=== PATIENT | female | born 1950 | race Caucasian/White ===

== ENCOUNTER → 2017-05-24 13:52 | Outpatient (CLI) | payer MEDICARE, MEDICAID, SELFPAY ==
--- NOTE | 2017-05-24 14:00 | XR_ITS ---
XR foot LT min 3V HISTORY: Left foot pain, second toe ulcer ITS.REASON: LT FOOT PAIN, ULCER ON LT 2ND TOE ORDERING PHYSICIAN: Sulma Esquivel DPM PATIENT AGE: 66 years COMPARISON: 12/29/2010 FINDINGS: There has been amputation at the first metatarsophalangeal joint with some minimal bony debris at the distal first metatarsal similar to the previous exam. Flexion deformity involves the second toe. On the lateral view there is lucency noted at the DIP joint of the second toe. This could be projectional. Erosive change is an additional consideration. The tip of the distal phalanx of the second toe has an unremarkable appearance. No other significant anomalies evident. IMPRESSION: 1. Possible erosive change at the dorsal aspect of the FDG joint of the second toe. Toe films or MRI may be of further value. 2. Prior amputation first metatarsophalangeal joint
== END ==
PROVIDERS: PCP Family Medicine; Visit Provider Podiatrist
DX: M79.671 Pain in right foot (principal); M79.672 Pain in left foot
CPT/HCPCS: 73630

== ENCOUNTER 2017-06-01 23:05 | Emergency (ER) | payer MEDICARE, MEDICAID, SELFPAY ==
[2017-06-01 23:15] VITALS: BP 139/55; PULSE 85; RESP 16; TEMP 37.2; O2SAT 98; BMI 24.3
[2017-06-01 23:47] LABS: Basophils # 0.1 K/mm3 (0-0.2); Basophils % 0.7 % (0.1-2.0); Eosinophils # 0.3 K/mm3 (0.0-0.4); Hemoglobin 14.3 g/dL (12.2-16.2); Lymphocytes # 1.6 K/mm3 (0.7-4.5); Lymphocytes % 25.1 K/mm3 (10-50); Mean Corpuscular Hemoglobin 29.5 pg (27.0-31.2); Mean Platelet Volume 9.3 fl (7.4-10.4); Monocytes # 0.2 K/mm3 (0.1-1.0); Monocytes % 3.6 % (1.7-9.3); Neutrophils # 4.2 K/mm3 (1.8-7.8); Neutrophils % 66.5 % (37.0-80.0); Platelet Count 250 K/mm3 (142-424); Red Blood Count 4.84 M/mm3 (4.20-5.40); Red Cell Distribution Width 13.8 % (11.5-17.5); White Blood Count 6.4 K/mm3 (4.8-10.8)
[2017-06-02 00:01] LABS: Alanine Aminotransferase 22 U/L (12-78); Albumin Level 3.3 gm/dL (3.4-5.0); Alkaline Phosphatase 142 U/L (46-116); Anion Gap 11.8 mEq/L (5-15); Aspartate Amino Transferase 10 U/L (15-37); Bilirubin,Total 0.4 mg/dL (0.2-1.0); Blood Urea Nitrogen 10 mg/dL (7-18); Calcium 8.3 mg/dL (8.5-10.1); Carbon Dioxide 27 mmol/L (21.0-32.0); Chloride 100 mmol/L (98-107); Creatinine Clearance Estimated 51 mL/min (0-300); Creatinine,Serum 0.91 mg/dL (0.55-1.02); Estimated Glomerular Filt Rate 61 ml/min (>60); GFR (African American) 74 ML/MIN (>60); Globulin 3.2 gm/dl (1.3-3.2); Potassium 3.8 mmoL/L (3.5-5.1); Sodium 135 mmol/L (136-145); Total Protein,Serum 6.5 gm/dL (6.4-8.2)
[2017-06-02 00:04] LABS: Glucose 529 mg/dL (74-106)
--- NOTE | 2017-06-02 01:14 | HMH.EDWNDL ---
ED Disposition Clinical Impression: Cellulitis Qualifiers: Site of cellulitis: extremity Site of cellulitis of extremity: lower extremity Laterality: left Qualified Code(s): L03.116 - Cellulitis of left lower limb Diabetes Qualifiers: Diabetes mellitus type: type 1 Diabetes mellitus complication status: with unspecified complications Qualified Code(s): E10.8 - Type 1 diabetes mellitus with unspecified complications Disposition: Home, Self-Care Condition on Discharge: Good Instructions: Cellulitis Additional Instructions: use meds and see pcp sunday Referrals: Mario Campos MD [Primary Care Provider] - - Critical Care Critical Care Time: No Attestation: On 06/01/17, the high probability of a clinically significant, sudden or life threatening deterioration of the following system(s) required my full and direct attention, intervention and personal management. The time I documented below is in addition to time spent performing reported procedures but includes the following listed in this critical care notation. Medical Decision Making - Medical Records Medical records reviewed: Yes: I reviewed the patient's medical records. Vital Signs: 06/01/17 23:15 Temperature 98.9 F Temperature Source Oral Pulse Rate [Right Radial] 85 Respiratory Rate 16 Blood Pressure [Right Arm] 139/55 Blood Pressure Mean [Right Arm] 83 Blood Pressure Source [Right Arm] Automatic Cuff Blood Pressure Position [Right Arm] Sitting 02 Sat by Pulse Oximetry 98 Oxygen Delivery Method Room Air - Lab Data Lab results reviewed: Yes: I reviewed the patient's lab results. Lab Results 06/01/17 23:38: WBC 6.4, RBC 4.84, Hgb 14.3, Hct 46.0, MCV 95.0, MCH 29.5, MCHC 31.0 L, RDW 13.8, Plt Count 250, MPV 9.3, Neut % (Auto) 66.5, Lymph % (Auto) 25.1, [place] % (Auto) 3.6, Eos % (Auto) 4.0, Baso % (Auto) 0.7, Neut # (Auto) 4.2, Lymph # (Auto) 1.6, [place] # (Auto) 0.2, Eos # (Auto) 0.3, Baso # (Auto) 0.1 06/01/17 23:38: Sodium 135 L, Potassium 3.8, Chloride 100, Carbon Dioxide 27, Anion Gap 11.8, BUN 10, Creatinine 0.91, Estimated Creat Clear 51, Estimated GFR 61, Est GFR ( Amer) 74, Glucose 529 H*, Calcium 8.3 L, Total Bilirubin 0.4, AST 10 L, ALT 22, Alkaline Phosphatase 142 H, Total Protein 6.5, Albumin 3.3 L, Globulin 3.2, Albumin/Globulin Ratio 1.0 L Result diagrams: 06/01/17 23:38 06/01/17 23:38 - Physician Consults Physician Consulted: [email or web address] Reason -: Pt condition - Mian Inquiry Pt receiving controlled substance: No Wound/Laceration HPI - General Chief Complaint: Skin/Abscess/Foreign Body Stated Complaint: sore on index toe left foot Time Seen by Provider: 06/02/17 01:14 Mode of Arrival: Wheelchair Source of Information: Patient, Spouse, Medical Record Limitations: Physical Limitations Description of Symptoms (Recalled from ER Triage Doc. by RN): Pt. reoprts last she saw Dr. Phillips who did an x-ray and cut tissue of the wound. Pt reports she has been taking antibiotics, but unalbe to keep her follow up apts. - History of Present Illness HPI narrative: pt with concern about infected lt second toe which has been ongoing and on abx and has seen dr young Onset (ago): day(s) Extremity Location: Left: foot (second toe) Place: home - Related Data Home Medications Medication Instructions Recorded Confirmed albuterol sulfate HFA 90 1 puff INHALATION NEEDED PRN 16 05/24/17 06/01/17 mcg/actuation aerosol inhaler #18 atorvastatin 80 mg tablet 80 mg PO DAILY 30 Days #05/24/17 06/01/17 clopidogrel 75 mg tablet 75 mg PO DAILY 30 Days #30 05/24/17 06/01/17 gabapentin 600 mg tablet 600 mg PO TID 05/24/17 06/01/17 omeprazole 20 mg capsule,delayed 20 mg PO DAILY 30 Days #30 05/24/17 06/01/17 release ropinirole 1 mg tablet 1 mg PO DAILY 30 Days #30 05/24/17 06/01/17 valsartan 160 mg tablet 160 mg PO DAILY 30 Days #30 05/24/17 06/01/17 cephALEXin [Keflex 500mg Cap] 500 mg PO Q12H 06/01/17 06/01/17
--- NOTE | 2017-06-02 01:42 | PC.NURSE ---
lab called blood sugar 529.
[2017-06-02 02:07] VITALS: BP 00/00; PULSE 80; RESP 18; TEMP 36.6; O2SAT 94
== END 2017-06-02 02:07 | disposition home or self-care (01) ==
PROVIDERS: Emergency Provider Emergency Medicine; Family Provider Family Medicine; PCP Family Medicine
DX: L03.032 Cellulitis of left toe (principal); E10.8 Type 1 diabetes mellitus with unspecified complications
CPT/HCPCS: 80053; 85025; 99282

== ENCOUNTER → 2017-06-06 12:58 | Outpatient (CLI) | payer MEDICARE, MEDICAID, SELFPAY ==
--- NOTE | 2017-06-06 13:21 | US_ITS ---
US Arterial Ankle Brachial Ind INDICATION: Left-sided leg pain rest pain and ulceration of the second toe. Prior right-sided [id number] amputation ORDERING PHYSICIAN: Sulma Esquivel DPM PATIENT AGE: 66 years TECHNIQUE: Segmental pressures obtained of both right and left leg. These are compared to brachial blood pressure to yield index at each level sampled including summary PAOLA. The data sheets from the procedure are available in PACS FINDINGS Rest study only performed today No prior studies available for comparison. Blood pressures reported are in millimeters mercury. RIGHT LEG PAOLA = not calculated, prior [id number] amputation. LEFT LEG PAOLA = not calculated. The vessels were noncompressible and blood pressure not able to be obtained. Degenerated and toe pressures were not able to be obtained. Pulses and waveforms: Diminished pulses and waveforms IMPRESSION: The ABIs were not able to be calculated on either side. There is prior amputation on the right and the vessels were noncompressible on the left indicating hardening of the arteries.
[2017-06-06 13:23] LABS: Basophils % 0.5 % (0.1-2.0); Eosinophils # 0.3 K/mm3 (0.0-0.4); Eosinophils % 4.6 % (0.1-12.0); Hematocrit 44.9 % (37.0-47.0); Hemoglobin 14.5 g/dL (12.2-16.2); Lymphocytes # 2.2 K/mm3 (0.7-4.5); Lymphocytes % 30.6 K/mm3 (10-50); Mean Corpuscular HGB Conc 32.3 g/dL (31.8-35.4); Mean Corpuscular Hemoglobin 29.9 pg (27.0-31.2); Mean Corpuscular Volume 92.7 fl (81-99); Mean Platelet Volume 8.8 fl (7.4-10.4); Monocytes # 0.3 K/mm3 (0.1-1.0); Monocytes % 3.6 % (1.7-9.3); Neutrophils # 4.4 K/mm3 (1.8-7.8); Neutrophils % 60.7 % (37.0-80.0); Platelet Count 260 K/mm3 (142-424); Red Blood Count 4.84 M/mm3 (4.20-5.40); Red Cell Distribution Width 14.1 % (11.5-17.5); White Blood Count 7.2 K/mm3 (4.8-10.8)
[2017-06-06 13:37] LABS: Hemoglobin A1C 11.2 % (0.0-7.0)
[2017-06-06 14:47] LABS: Alanine Aminotransferase 25 U/L (12-78); Albumin Level 3.4 gm/dL (3.4-5.0); Albumin/Globulin Ratio 1.2 (1.1-1.8); Alkaline Phosphatase 117 U/L (46-116); Anion Gap 12.3 mEq/L (5-15); Aspartate Amino Transferase 10 U/L (15-37); Bilirubin,Total 0.5 mg/dL (0.2-1.0); Blood Urea Nitrogen 13 mg/dL (7-18); Calcium 8.8 mg/dL (8.5-10.1); Carbon Dioxide 30 mmol/L (21.0-32.0); Chloride 102 mmol/L (98-107); Creatinine,Serum 0.76 mg/dL (0.55-1.02); Estimated Glomerular Filt Rate 76 ml/min (>60); GFR (African American) 92 ML/MIN (>60); Globulin 2.9 gm/dl (1.3-3.2); Glucose 191 mg/dL (74-106); Potassium 3.3 mmoL/L (3.5-5.1); Sodium 141 mmol/L (136-145); Total Protein,Serum 6.3 gm/dL (6.4-8.2)
[2017-06-06 14:48] LABS: C-Reactive Protein < 0.2 mg/L (0.0-0.9)
== END ==
PROVIDERS: Family Provider Family Medicine; PCP Family Medicine; Visit Provider Podiatrist
DX: L97.522 Non-pressure chronic ulcer of other part of left foot with fat layer exposed (principal); Z79.899 Other long term (current) drug therapy
CPT/HCPCS: 36415; 80053; 83036; 85025; 85651; 86140; 93922

== ENCOUNTER → 2017-06-07 14:13 | Outpatient (REF) | payer MEDICARE, MEDICAID, SELFPAY | LOC: LAB 14:13 | PROVIDERS: Visit Provider Podiatrist | DX: Z51.89 Encounter for other specified aftercare (principal) | CPT/HCPCS: 87070; 87077; 87186; 87205 ==

== ENCOUNTER → 2017-06-08 12:12 | Outpatient (POV) | payer MEDICARE, MEDICAID, SELFPAY ==
[2017-06-08 13:33] LABS: Erythrocyte Sedimentation Rate 10 mm/hr (0-30)
== END ==
PROVIDERS: Family Provider Family Medicine; PCP Family Medicine; Visit Provider Podiatrist
DX: Z51.89 Encounter for other specified aftercare (principal)
CPT/HCPCS: 85651

== ENCOUNTER 2017-06-13 17:51 | Observation (INO) | payer MEDICARE, MEDICAID, SELFPAY ==
[2017-06-13 17:52] VITALS: BP 145/69; PULSE 91; RESP 20; TEMP 39.3; O2SAT 96; BMI 24.3
[2017-06-13 18:31] LABS: Basophils # 0.1 K/mm3 (0-0.2); Basophils % 0.5 % (0.1-2.0); Eosinophils % 0.2 % (0.1-12.0); Hematocrit 38.7 % (37.0-47.0); Hemoglobin 12.8 g/dL (12.2-16.2); Lymphocytes # 0.8 K/mm3 (0.7-4.5); Lymphocytes % 8.3 K/mm3 (10-50); Mean Corpuscular HGB Conc 33.1 g/dL (31.8-35.4); Mean Corpuscular Hemoglobin 29.7 pg (27.0-31.2); Mean Corpuscular Volume 89.6 fl (81-99); Mean Platelet Volume 9.9 fl (7.4-10.4); Monocytes # 0.6 K/mm3 (0.1-1.0); Monocytes % 5.6 % (1.7-9.3); Neutrophils # 8.4 K/mm3 (1.8-7.8); Neutrophils % 85.4 % (37.0-80.0); Platelet Count 157 K/mm3 (142-424); Red Blood Count 4.32 M/mm3 (4.20-5.40); White Blood Count 9.8 K/mm3 (4.8-10.8)
[2017-06-13 18:42] LABS: Alanine Aminotransferase 25 U/L (12-78); Albumin Level 3.2 gm/dL (3.4-5.0); Albumin/Globulin Ratio 0.9 (1.1-1.8); Alkaline Phosphatase 95 U/L (46-116); Anion Gap 13.6 mEq/L (5-15); Aspartate Amino Transferase 23 U/L (15-37); Bilirubin,Total 0.8 mg/dL (0.2-1.0); Blood Urea Nitrogen 22 mg/dL (7-18); Calcium 7.8 mg/dL (8.5-10.1); Carbon Dioxide 28 mmol/L (21.0-32.0); Chloride 94 mmol/L (98-107); Creatinine Clearance Estimated 51 mL/min (0-300); Creatinine,Serum 0.99 mg/dL (0.55-1.02); Estimated Glomerular Filt Rate 56 ml/min (>60); GFR (African American) 67 ML/MIN (>60); Globulin 3.4 gm/dl (1.3-3.2); Glucose 302 mg/dL (74-106); Potassium 4.6 mmoL/L (3.5-5.1); Sodium 131 mmol/L (136-145); Total Protein,Serum 6.6 gm/dL (6.4-8.2)
[2017-06-13 18:52] LABS: MANUAL DIFFERENTIAL MANUAL DIFFERENTIAL (MANUAL DIFF)
--- NOTE | 2017-06-13 18:54 | HMH.EDGENADL ---
ED Disposition Clinical Impression: Dehydration Acute bronchitis Qualifiers: Bronchitis organism: unspecified organism Qualified Code(s): J20.9 - Acute bronchitis, unspecified Disposition: Still a Patient Condition on Discharge: Fair Referrals: Mario Campos MD [Primary Care Provider] - - Critical Care Critical Care Time: No Attestation: On 06/13/17, the high probability of a clinically significant, sudden or life threatening deterioration of the following system(s) required my full and direct attention, intervention and personal management. The time I documented below is in addition to time spent performing reported procedures but includes the following listed in this critical care notation. Medical Decision Making - Mian Inquiry Pt receiving controlled substance: No Vital Signs: 06/13/17 17:52 Temperature 102.8 F H Temperature Source Oral Pulse Rate [Left Radial] 91 H Respiratory Rate 20 Blood Pressure [Right Arm] 145/69 Blood Pressure Mean [Right Arm] 94 Blood Pressure Position [Right Arm] Right Lateral 02 Sat by Pulse Oximetry 96 - Lab Data Lab Results 06/13/17 18:11: Influenza Type A Ag Negative, Influenza Type B Ag Negative 06/13/17 18:15: WBC 9.8, RBC 4.32, Hgb 12.8, Hct 38.7, MCV 89.6, MCH 29.7, MCHC 33.1, RDW 14.0, Plt Count 157, MPV 9.9, Neut % (Auto) 85.4 H, Lymph % (Auto) 8.3 L, [place] % (Auto) 5.6, Eos % (Auto) 0.2, Baso % (Auto) 0.5, Neut # (Auto) 8.4 H, Lymph # (Auto) 0.8, [place] # (Auto) 0.6, Eos # (Auto) 0.0, Baso # (Auto) 0.1, Total Counted 100, Neutrophils % (Manual) 86 H, Lymphocytes % (Manual) 9 L, Monocytes % (Manual) 5, Platelet Estimate Normal, RBC Morphology Normal 06/13/17 18:15: Sodium 131 L, Potassium 4.6, Chloride 94 L, Carbon Dioxide 28, Anion Gap 13.6, BUN 22 H, Creatinine 0.99, Estimated Creat Clear 51, Estimated GFR 56 L, Est GFR ( Amer) 67, Glucose 302 H, Calcium 7.8 L, Total Bilirubin 0.8, AST 23, ALT 25, Alkaline Phosphatase 95, Total Protein 6.6, Albumin 3.2 L, Globulin 3.4 H, Albumin/Globulin Ratio 0.9 L 06/13/17 18:15: Lactic Acid 1.5 06/13/17 19:15: Urine Color Yellow, Urine Appearance Clear, Urine pH 5.5, Ur Specific [place] >= 1.030, Urine Protein Trace, Urine Glucose (UA) 1+, Urine Ketones Trace, Urine Blood Negative, Urine Nitrate Negative, Urine Bilirubin Negative, Urine Urobilinogen 0.2, Ur Leukocyte Esterase Negative Result diagrams: 06/13/17 18:15 06/13/17 18:15 Orders (Tests/Meds): ED MEDICATIONS Generic Name Dose Route Start Last Admin Trade Name Freq PRN Reason Stop Dose Admin Albuterol Sulfate puffs 06/13/17 20:20 Proventil-Hfa 90mcg/Puff Inhaler IH 07/13/17 20:19 NEEDED PRN Shortness Of Breath Clopidogrel Bisulfate 75 mg 06/14/17 09:00 Plavix 75mg Tablet PO 07/14/17 08:59 DAILY SONALI Gabapentin 600 mg 06/13/17 21:00 Neurontin 600mg Tablet PO 07/13/17 20:59 TID SONALI Sodium Chloride 1,000 mls @ 150 mls/hr 06/13/17 20:00 06/13/17 20:10 Sod Chlor 0.9% 1000ml Bag IV 07/13/17 19:59 150 mls/hr .[id number] SONALI Administration Non-Formulary Medication 80 mg 06/14/17 09:00 Atorvastatin Calcium [Lipitor 80mg Tablet] PO 07/14/17 08:59 DAILY SONALI Non-Formulary Medication 20 mg 06/14/17 09:00 Omeprazole [Omeprazole 20mg Capsule] PO 07/14/17 08:59 DAILY SONALI Non-Formulary Medication 160 mg 06/14/17 09:00 Valsartan [Valsartan] PO 07/14/17 08:59 DAILY SONALI Ropinirole HCl 1 mg 06/14/17 09:00 Requip 1mg Tablet PO 07/14/17 08:59 DAILY SONALI Discontinued Medications Generic Name Dose Route Start Last Admin Trade Name Freq PRN Reason Stop Dose Admin Acetaminophen 650 mg 06/13/17 19:05 06/13/17 19:10 Acetaminophen 325mg Tab PO 06/13/17 19:06 650 mg ONCE ONE Administration ORDERS Category Date Time Status Chest XR 2 view (NOT portable) [XR chest 2V] Stat Exams 06/13/17 19:10 Taken Upper Respiratory Panel, PCR
--- NOTE | 2017-06-13 19:10 | XR_ITS ---
XR chest 2V HISTORY: ITS.REASON: fever, cough ORDERING PHYSICIAN: Pranay Adkins MD PATIENT AGE: 66 years COMPARISON: 03/01/2017 FINDINGS: The cardiomediastinal silhouette and pulmonary vascularity are within normal limits. The lungs are clear without infiltrates, suspicious nodules, or pleural effusions. Skin fold artifact noted on the left. Bone plate is present of the lower thoracic spine. No acute bony abnormalities. IMPRESSION: No acute finding
[2017-06-13 19:13] LABS: Lymphocytes % 9 % (10-50); Monocytes % 5 % (2-9); Neutrophils % 86 % (42-76); Platelet Estimate Normal; RBC Morphology Normal; Total Cells Counted 100
[2017-06-13 19:20] LABS: Lactic Acid 1.5 mmol/L (0.4-2.0)
[2017-06-13 19:24] LABS: Microscopic, Urine URINE MICROSCOPIC (MICROSCOPIC)
[2017-06-13 19:32] LABS: Appearance,Urine CLEAR (Clear); Bilirubin,Urine Negative (Negative); Blood, Urine Negative (Negative); Color,Urine YELLOW (Yellow); Glucose,Urine (UA) 1+ (Negative); Ketones,Urine TRACE (Negative); Leukocyte Esterase,Urine Negative (Negative); Nitrate,Urine Negative (Negative); PH,Urine 5.5 (5.0-8.5); Protein,Urine TRACE (Negative); Specific Gravity, Urine >= 1.030 (1.005-1.030); Urobilinogen,Urine 0.2 EU/dl (0.2)
[2017-06-13 20:14] LABS: Adenovirus,PCR Not Detected (NotDetected); Bordetella Pertussis Not Detected (NotDetected); Chlamydophila Pneumoniae, PCR Not Detected (NotDetected); Coronavirus 229E Not Detected (NotDetected); Coronavirus NL63 Not Detected (NotDetected); Coronavirus OC43 Not Detected (NotDetected); Coronovirus HKU1,PCR Not Detected (NotDetected); Human Metapneumovirus Not Detected (NotDetected); Influenza A, PCR Not Detected (NotDetected); Influenza AH1, PCR Not Detected (NotDetected); Influenza AH3,PCR Not Detected (NotDetected); Influenza B, PCR Not Detected (NotDetected); Mycoplasma Pneumoniae, PCR Not Detected (NotDected); Parainfluenza 1, PCR Not Detected (NotDetected); Parainfluenza 2, PCR Not Detected (NotDetected); Parainfluenza 3, PCR Not Detected (NotDetected); Parainfluenza 4, PCR Not Detected (NotDetected); Respiratory Syncytial Virus Not Detected (NotDetected); Rhinovirus/Enterovirus Not Detected (NotDetected)
[2017-06-13 20:41] LABS: Bacteria,Urine Trace /lpf; Squamous Epithelial Cell,Urine 20-50 #/hpf (0-5); WBC,Urine Occasional #/hpf (0-3); Yeast,Urine 1+ /lpf
[2017-06-13 20:55] VITALS: BP 139/89; PULSE 88; RESP 18; TEMP 38.1; O2SAT 96
[2017-06-13 21:35] LABS: Influenza AH1, 2009 Detected (NotDetected)
[2017-06-13 23:13] VITALS: BP 97/35; PULSE 83; RESP 24; TEMP 37.9; O2SAT 90; BMI 24.0
[2017-06-14 04:00] VITALS: BP 112/37; PULSE 81; RESP 22; TEMP 37.6; O2SAT 90
--- NOTE | 2017-06-14 07:20 | HMH.HP ---
*Admission Date: 06/13/17 *Chief complaint: Cough and weakness *History of present illness: 66-year-old female with likely underlying COPD presented to the emergency department with a 2 day history of cough and increasing weakness with inability to stand. Once the patient arrived in the emergency department she was also identified as having fevers. Patient underwent workup which was significant for an abnormal lung exam but labs were unremarkable except for viral PCR testing which was later performed and confirmed influenza A. Patient was admitted and placed on IV fluids. At the time of admission she was also placed on antibiotics due to suspicion of bacterial bronchitis, however this was before influenza testing had returned. This morning the patient reports feeling significantly better already and notes even improvement in her breathing and cough. [facility] History Medical History: Reports:: Congestive Heart Failure, Diabetes Mellitus Type 2, Hyperlipidemia, Hypertension, MRSA Denies:: Cancer Other Medical History: Reports: Blood Transfusion Reaction (PRE SURGICAL 6 YEARS AGO) Laterality Cases: Right: Other Other Surgeries: Yes: Cardiac Catheterization, Colonoscopy, , EGD, Hysterectomy-Total, Other (NECK SURGERY) Amputation: Yes Fractures: Yes (ELBOW, FOOT) - *Social History Educational Level: Attended High School Smoking Status: Current every day smoker Tobacco Type: cigarettes # Packs/Day (cigarettes): 1 Alcohol Intake: never Alcohol Intake Frequency:: other Substance Use Type: denies use Occupational Status: disabled Household Members: children - Psychiatric History Expresses thoughts of harming self/others: None Suicide Plan Description: No Plan *Family Hx:: Diabetes, Cancer Review of Systems - Review of Systems Review of systems:: pertinent systems reviewed and negative unless documented below - *Neurologic Reports weakness Meds Home Medications Medication Instructions Recorded Confirmed Type albuterol sulfate HFA 90 1 puff INHALATION NEEDED PRN 16 05/24/17 06/13/17 History mcg/actuation aerosol inhaler Days #18 atorvastatin 80 mg tablet 80 mg PO DAILY 30 Days #30 05/24/17 06/13/17 History clopidogrel 75 mg tablet 75 mg PO DAILY 30 Days #30 05/24/17 06/13/17 History gabapentin 600 mg tablet 600 mg PO TID 05/24/17 06/13/17 History omeprazole 20 mg capsule,delayed 20 mg PO DAILY 30 Days #30 05/24/17 06/13/17 History release ropinirole 1 mg tablet 1 mg PO DAILY 30 Days #30 05/24/17 06/13/17 History valsartan 160 mg tablet 160 mg PO DAILY 30 Days #30 05/24/17 06/13/17 History cephALEXin [Keflex 500mg Cap] 500 mg PO Q12H 06/01/17 06/13/17 History Allergies Allergy/AdvReac Type Severity Reaction Status Date / Time ibuprofen [IBUPROFEN] Allergy Severe I-HIVES Verified 06/01/17 23:23 aspirin [ASPIRIN] Allergy Unknown Verified 06/01/17 23:23 zolpidem [From AMBIEN] Allergy Unknown Verified 06/01/17 23:23 Exam Vital signs and Labs for Last 24 Hours: Temp Pulse Resp BP Pulse Ox 99.7 F H 81 22 112/37 90 L 06/14/17 04:00 06/14/17 04:00 06/14/17 04:00 06/14/17 04:00 06/14/17 04:00 I & O for Last 24 hours: Intake & Output 06/11/17 06/12/17 06/13/17 06/14/17 11:59 11:59 11:59 11:59 Intake Total 800 / 800 Output Total 800 / 800 Balance 0 / 0 Weight 131 lb 1.989 oz Narrative: Patient is awake and alert and is easily able to sit up in bed this morning. HEENT exam: Pupils are reactive to light. Oropharynx is moist. Neck is without lymphadenopathy. Lungs have some faint rhonchi heard posteriorly that resolve with repetitive deep breathing. Heart has a regular rate and rhythm. Abdomen is soft. H&P: Result - Labs Labs: Abnormal Lab Results 06/13/17 06/13/17 06/13/17 18:11 18:15 18:15 WBC 9.8 RBC 4.32 Hgb 12.8 Hct 38.7 MCV 89.6 MCH 29.7 MCHC 33.1 RDW 14.0 Plt Count 157 MPV 9.9 Neut % (Auto) 85.4 H
--- NOTE | 2017-06-14 07:23 | P.HP_ITS ---
*Admission Date: 06/13/17 *Chief complaint: Cough and weakness *History of present illness: 66-year-old female with likely underlying COPD presented to the emergency department with a 2 day history of cough and increasing weakness with inability to stand. Once the patient arrived in the emergency department she was also identified as having fevers. Patient underwent workup which was significant for an abnormal lung exam but labs were unremarkable except for viral PCR testing which was later performed and confirmed influenza A. Patient was admitted and placed on IV fluids. At the time of admission she was also placed on antibiotics due to suspicion of bacterial bronchitis, however this was before influenza testing had returned. This morning the patient reports feeling significantly better already and notes even improvement in her breathing and cough. [facility] History Medical History: Reports:: Congestive Heart Failure, Diabetes Mellitus Type 2, Hyperlipidemia, Hypertension, MRSA Denies:: Cancer Other Medical History: Reports: Blood Transfusion Reaction (PRE SURGICAL 6 YEARS AGO) Laterality Cases: Right: Other Other Surgeries: Yes: Cardiac Catheterization, Colonoscopy, , EGD, Hysterectomy-Total, Other (NECK SURGERY) Amputation: Yes Fractures: Yes (ELBOW, FOOT) - *Social History Educational Level: Attended High School Smoking Status: Current every day smoker Tobacco Type: cigarettes # Packs/Day (cigarettes): 1 Alcohol Intake: never Alcohol Intake Frequency:: other Substance Use Type: denies use Occupational Status: disabled Household Members: children - Psychiatric History Expresses thoughts of harming self/others: None Suicide Plan Description: No Plan *Family Hx:: Diabetes, Cancer Review of Systems - Review of Systems Review of systems:: pertinent systems reviewed and negative unless documented below - *Neurologic Reports weakness Meds Home Medications Medication Instructions Recorded Confirmed Type albuterol sulfate HFA 90 1 puff INHALATION NEEDED PRN 16 05/24/17 06/13/17 History mcg/actuation aerosol inhaler Days #18 atorvastatin 80 mg tablet 80 mg PO DAILY 30 Days #30 05/24/17 06/13/17 History clopidogrel 75 mg tablet 75 mg PO DAILY 30 Days #30 05/24/17 06/13/17 History gabapentin 600 mg tablet 600 mg PO TID 05/24/17 06/13/17 History omeprazole 20 mg capsule,delayed 20 mg PO DAILY 30 Days #30 05/24/17 06/13/17 History release ropinirole 1 mg tablet 1 mg PO DAILY 30 Days #30 05/24/17 06/13/17 History valsartan 160 mg tablet 160 mg PO DAILY 30 Days #30 05/24/17 06/13/17 History cephALEXin [Keflex 500mg Cap] 500 mg PO Q12H 06/01/17 06/13/17 History Allergies Allergy/AdvReac Type Severity Reaction Status Date / Time ibuprofen [IBUPROFEN] Allergy Severe I-HIVES Verified 06/01/17 23:23 aspirin [ASPIRIN] Allergy Unknown Verified 06/01/17 23:23 zolpidem [From AMBIEN] Allergy Unknown Verified 06/01/17 23:23 Exam Vital signs and Labs for Last 24 Hours: Temp Pulse Resp BP Pulse Ox 99.7 F H 81 22 112/37 90 L 06/14/17 04:00 06/14/17 04:00 06/14/17 04:00 06/14/17 04:00 06/14/17 04:00 I & O for Last 24 hours: Intake & Output 06/11/17 06/12/17 06/13/17 06/14/17 11:59 11:59 11:59 11:59 Intake Total 800 / 800 Output Total 800 / 800 Balance 0 / 0 Weight 131 lb 1.989 oz Narr
--- NOTE | 2017-06-14 07:23 | HMH.DCSUM ---
General - General Admission date: 06/13/17 Discharge date: 06/14/17 HPI HPI: 66-year-old female with likely underlying COPD presented to the emergency department with a 2 day history of cough and increasing weakness with inability to stand. Once the patient arrived in the emergency department she was also identified as having fevers. Patient underwent workup which was significant for an abnormal lung exam but labs were unremarkable except for viral PCR testing which was later performed and confirmed influenza A. Patient was admitted and placed on IV fluids. At the time of admission she was also placed on antibiotics due to suspicion of bacterial bronchitis, however this was before influenza testing had returned. This morning the patient reports feeling significantly better already and notes even improvement in her breathing and cough. Hospital Course Hospital Course: Patient was been admitted with a diagnosis of acute bronchitis with upper respiratory PCR testing performed after admission turned positive for influenza A. Patient's fevers resolved overnight and by the following morning patient felt back to baseline and was feeling well. She was observed throughout the morning and lunch. For recurrence of fevers or malaise. Lung exam was significant for coarse breath sounds but no rales, rhonchi, wheezing. When patient did not have any recurrence of fever she was discharged home and can follow up as an outpatient. He was prescribed Tamiflu at discharge Objective Vital signs: Temp Pulse Resp BP Pulse Ox 99.7 F H 81 22 112/37 90 L 06/14/17 04:00 06/14/17 04:00 06/14/17 04:00 06/14/17 04:00 06/14/17 04:00 DS: Diagnosis - Discharge Diagnosis (1) Influenza A Status: Acute Discharge Plan - Patient Discharge Instructions ACTIVITY: Continue current activity DIET: continue same diet Patient Instructions: Dehydration, Acute Bronchitis, Nicotine Addiction, DI for Dehydration -- Adult, DI for Acute Bronchitis, DI for H1N1 Influenza -- Adult, How to Quit Smoking - Follow up Plan Follow up with: Sulma Esquivel DPM [Physician] - (as previously scheduled) Disposition: Home, Self-[facility] Medications: Home Medications Medication Instructions Recorded Confirmed Type albuterol sulfate HFA 90 1 puff INHALATION NEEDED PRN 16 05/24/17 06/13/17 History mcg/actuation aerosol inhaler Days #18 atorvastatin 80 mg tablet 80 mg PO DAILY 30 Days #30 05/24/17 06/13/17 History clopidogrel 75 mg tablet 75 mg PO DAILY 30 Days #30 05/24/17 06/13/17 History gabapentin 600 mg tablet 600 mg PO TID 05/24/17 06/13/17 History omeprazole 20 mg capsule,delayed 20 mg PO DAILY 30 Days #30 05/24/17 06/13/17 History release ropinirole 1 mg tablet 1 mg PO HS 30 Days #30 05/24/17 06/14/17 History valsartan 160 mg tablet 160 mg PO DAILY 30 Days #30 05/24/17 06/13/17 History Prescriptions/Medication Reconciliation: New Oseltamivir Phosphate [Tamiflu 75mg Capsule] 75 mg PO BID #10 cap Continue omeprazole 20 mg capsule,delayed release 20 mg PO DAILY 30 Days #30 clopidogrel 75 mg tablet 75 mg PO DAILY 30 Days #30 atorvastatin 80 mg tablet 80 mg PO DAILY 30 Days #30 gabapentin 600 mg tablet 600 mg PO TID albuterol sulfate HFA 90 mcg/actuation aerosol inhaler 1 puff INHALATION NEEDED PRN 16 Days #18 PRN Reason: Shortness Of Breath valsartan 160 mg tablet 160 mg PO DAILY 30 Days #30 ropinirole 1 mg tablet 1 mg PO HS 30 Days #30
--- NOTE | 2017-06-14 07:27 | PC.NURSE ---
report given to myke gao rn
--- NOTE | 2017-06-14 07:28 | P.CONPHA_ITS ---
[facility] Pharm[facility] VTE Monitoring - Patient Demographics Admission date: 06/13/17 Report Date: 06/14/17 Time: 07:27 Allergies/Adverse Reactions: Patient Allergies ibuprofen [IBUPROFEN] Allergy (Severe, Verified 06/01/17 23:23) I-HIVES aspirin [ASPIRIN] Allergy (Unknown, Verified 06/01/17 23:23) zolpidem [From AMBIEN] Allergy (Unknown, Verified 06/01/17 23:23) Height: 1.57 m Weight: 59.477 kg Patient Problems: Current Active Problems Acute bronchitis (Acute) Dehydration (Acute) Influenza A (Acute) - VTE Risk Labs: VTE Related Lab Results Hgb 12.8 g/dL (12.2-16.2) 06/13/17 18:15 Hct 38.7 % (37.0-47.0) 06/13/17 18:15 Plt Count 157 K/mm3 (142-424) 06/13/17 18:15 BUN 22 mg/dL (7-18) H 06/13/17 18:15 Creatinine 0.99 mg/dL (0.55-1.02) 06/13/17 18:15 Estimated Creat Clear 51 mL/min (0-300) 06/13/17 18:15 VTE Score: 5 VTE Risk Level: Low Risk - Prophylaxis VTE Prophylaxis Ordered?: Yes Types of VTE Prophylaxis: TEDS Knee High Location of Applied Device: Bilateral Lower Extremeties - VTE Diagnosis Confirmed Treatment or plan recommended: Continue Current Treatment
[2017-06-14 07:33] VITALS: BP 109/40; PULSE 93; RESP 20; TEMP 36.9; O2SAT 93
== END 2017-06-14 14:09 | disposition home or self-care (01) ==
LOC: ER 18:31 → 2ND 20:33
PROVIDERS: Admitting Provider Internal Medicine Adolescent Medicine; Emergency Provider Emergency Medicine; Family Provider Family Medicine; PCP Family Medicine; Visit Provider Family Medicine
DX: E86.0 Dehydration (principal); J10.1 Influenza due to other identified influenza virus with other respiratory manifestations; E11.9 Type 2 diabetes mellitus without complications; Z72.0 Tobacco use; I10 Essential (primary) hypertension; I50.9 Heart failure, unspecified; J44.9 Chronic obstructive pulmonary disease, unspecified
CPT/HCPCS: 71046; 80053; 81001; 83605; 85007; 85025; 87040; 87275; 87276; 87486; 87581; 87633; 87798; 96365; 99211; 99284; G0378; J0456

== ENCOUNTER → 2017-07-05 07:41 | Outpatient (CLI) | payer MEDICARE, MEDICAID, SELFPAY ==
--- NOTE | 2017-07-05 07:50 | CA_ITS ---
PROCEDURE: 2-D M-mode and color Doppler study INDICATIONS FOR THE TEST: Chest pain COPDX Heart Murmur Tobacco Smoking Palpitations Fatigue Syncope Edema HypertensionXDiabetes MellitusX Rheumatic Fever SOBXDOE Obesity HyperlipidemiaX Family History HD Additional History H/O AF,CHF PATIENT INFORMATION HEIGHT: 60 WEIGHT:133 GENDER: Female B/P:102/78 2-D/M-MODE INTERPRETATION: 2-D MEASUREMENTS OBSERVED VALUES IN CMS Right Ventricular Dimension (RVDd) 2.6 Interventricular Septum (Thickness)(IVsd) .7 Left Ventricular Internal Dimensions(LVIDd) 4.4 Left Ventricular Posterior Wall (Thickness)(LVPWd) .7 Aortic Root 2.6 Aortic Cusp Separation 2.1 Left Atrial Dimensions (LAD) 2.8 2D 1. Left atrium is mildly enlarged, left ventricle is normal size, there is no concentric left ventricular hypertrophy, visually estimated ejection fraction 55% with no obvious regional wall motion abnormality. 2. The right atrium and right ventricle are relatively normal size and function. 3. The aortic valve is minimally thickened and fibrosed. 4. The mitral and tricuspid valve leaflets are minimally thickened. 5. The pulmonic valve is poorly visualized. 6. No significant pericardial effusion noted. DOPPLER INTERROGATION: Doppler interrogation of the aortic, mitral and tricuspid valvular presence of mild mitral and tricuspid regurgitation, tricuspid and enteric velocity insufficient for calculation of the right ventricular systolic pressure, grade 1 diastolic dysfunction seen without tissue Doppler evidence of raised left atrial pressure. CONCLUSION: 1. Mildly enlarged left atrium, normal left ventricular size, visually estimated ejection fraction 55% with no obvious regional wall motion abnormality, grade 1 diastolic dysfunction seen without tissue Doppler evidence of raised left atrial pressure. 2. Mild mitral and tricuspid regurgitation 3. No significant pericardial effusion noted.
[2017-07-05 08:08] LABS: Basophils % 0.8 % (0.1-2.0); Eosinophils # 0.2 K/mm3 (0.0-0.4); Eosinophils % 3.2 % (0.1-12.0); Hematocrit 41.5 % (37.0-47.0); Hemoglobin 13.1 g/dL (12.2-16.2); Lymphocytes # 2.1 K/mm3 (0.7-4.5); Lymphocytes % 43.9 K/mm3 (10-50); Mean Corpuscular HGB Conc 31.7 g/dL (31.8-35.4); Mean Corpuscular Hemoglobin 29.1 pg (27.0-31.2); Mean Corpuscular Volume 91.9 fl (81-99); Monocytes # 0.4 K/mm3 (0.1-1.0); Monocytes % 7.4 % (1.7-9.3); Neutrophils # 2.1 K/mm3 (1.8-7.8); Neutrophils % 44.7 % (37.0-80.0); Platelet Count 283 K/mm3 (142-424); Red Blood Count 4.51 M/mm3 (4.20-5.40); Red Cell Distribution Width 14.2 % (11.5-17.5); White Blood Count 4.7 K/mm3 (4.8-10.8)
[2017-07-05 08:17] LABS: Hemoglobin A1C 11.7 % (0.0-7.0)
--- NOTE | 2017-07-05 08:25 | CT_ITS ---
CT angio LE LT Ordering Physician: Stiven Ash MD Patient Age: 66 years: Female HISTORY: ITS.REASON: ulcer left foot TECHNIQUE: Thin section axial helical CT scanning performed through the arteries bilaterally following bolus administration of 100 cc Isovue 370 . From these thin sections 3-D volume reconstruction CTA reconstruction images with with subtraction and shading were utilized to visualize the runoff vessels from aorta through the leg COMPARISON :A lower leg duplex Doppler 06/06/2017 which was limited due atherosclerotic calcification. Yielding Noncompressibility FINDINGS Lung bases clear liver spleen pancreas adrenals and kidneys with no prominent findings.. Cholecystectomy. The aorta normal caliber with calcification and minimal not flow-limiting stenosis origin of right renal artery, more so than left and some The atherosclerotic calcifications throughout the aorta into the common iliac arteries. Calcified plaque and features yield mild to moderate stenosis at the left common iliac artery origin estimated up to 40%-stenosis here but possibly slightly higher I would note that the 3-D images provide better evaluation here and show that the calcified plaque is mainly along the inferior margin of the left common iliac artery. LEFT LEG perfusion: Left external iliac artery is widely patent and free of significant plaque. Only Minimal plaque at the left common femoral artery. Left SFA with scattered mild to moderate plaque. Numerous scattered calcified plaque and soft plaque is seen throughout the superficial femoral artery and popliteal artery. There numerous areas of of mild to moderate up to 30%-50% % stenosis.. For example at mid left SFA and Micky's canal probably there is forward a 50% stenosis. At the left popliteal there seems to be slightly greater 58 ACC percent stenosis At left peroneal tibial trunk minimal plaque yielding 30-40% narrowing likely present. However there is actually very good three-vessel runoff to the calf to the left ankle and left foot. . The peroneal artery becomes attenuated & very quite small just above the ankle The anterior tibial and posterior tibial patent to the ankle. Continuation of a generous caliber well perfused dorsalis pedis artery to the foot which leads down to the dorsal arcade. . We also see a good enhancement and perfusion of posterior tibial artery as it continues as a smaller vessel along the plantar aspect of the foot. RIGHT LEG. There is moderate plaque at the common femoral artery with at roughly 50% narrowing at stenosis here. Scattered moderate plaques are seen along the right SFA with the occluded appearing stent extending through the distal SFA to the popliteal.. Fair collaterals are seen arise from the deep femoral artery collaterals. 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 The bone appears in soft tissues intact. At the BKA ---------IMPRESSION: --------- 1. LEFT LEG There is actually surprisingly fairly good runoff with trifurcation vessels seen down to to the above ankle & with continuation of dorsalis pedis and posterior tibial artery to the foot Would note at left leg: ... Moderate stenosis origin left common iliac artery estimated ~up to 40% ... There are extensive mild/moderate moderate calcified and soft plaque throughout the left SFA some areas yielding up to 40%-possible up to 50% stenosis such as seen at Micky's canal & proximal SFA .... There is also a slightly higher grade stenosis 50-60% at the left popliteal artery .... Scattered calcified & soft plaque throughout the trifurcation vessel but overall good runoff to the ankle with the dominant dorsalis pedis leading to
[2017-07-05 09:02] LABS: Alanine Aminotransferase 11 U/L (12-78); Albumin Level 3.2 gm/dL (3.4-5.0); Albumin/Globulin Ratio 1.1 (1.1-1.8); Alkaline Phosphatase 115 U/L (46-116); Anion Gap 10.2 mEq/L (5-15); Aspartate Amino Transferase 13 U/L (15-37); Bilirubin,Total 0.6 mg/dL (0.2-1.0); Blood Urea Nitrogen 13 mg/dL (7-18); Carbon Dioxide 31 mmol/L (21.0-32.0); Chloride 100 mmol/L (98-107); Creatinine,Serum 0.75 mg/dL (0.55-1.02); Estimated Glomerular Filt Rate 77 ml/min (>60); GFR (African American) 93 ML/MIN (>60); Glucose 317 mg/dL (74-106); Potassium 4.2 mmoL/L (3.5-5.1); Sodium 137 mmol/L (136-145); Total Protein,Serum 6.2 gm/dL (6.4-8.2)
[2017-07-05 09:09] LABS: C-Reactive Protein < 0.2 mg/L (0.0-0.9)
== END ==
PROVIDERS: Podiatrist; Family Provider Family Medicine; PCP Family Medicine; Visit Provider Internal Medicine Cardiovascular Disease
DX: I48.0 Paroxysmal atrial fibrillation; I73.9 Peripheral vascular disease, unspecified; E11.9 Type 2 diabetes mellitus without complications; L97.529 Non-pressure chronic ulcer of other part of left foot with unspecified severity; M20.40 Other hammer toe(s) (acquired), unspecified foot; Z89.511 Acquired absence of right leg below knee; Z51.89 Encounter for other specified aftercare
CPT/HCPCS: 36415; 73706; 80053; 83036; 85025; 86140; 93306; Q9967

== ENCOUNTER 2017-07-28 00:02 | Inpatient (IN) ==
--- NOTE | 2017-07-28 00:26 | Emergency Department Note ---
ED Disposition Clinical Impression: Osteomyelitis of ankle and foot Diabetes Qualifiers: Diabetes mellitus type: type 1 Diabetes mellitus complication status: with unspecified complications Qualified Code(s): E10.8 - Type 1 diabetes mellitus with unspecified complications Disposition: Admitted as Observation Condition on Discharge: Good Referrals: Mario Campos MD [Primary Care Provider] - - Critical Care Critical Care Time: No Attestation: On 07/28/17, the high probability of a clinically significant, sudden or life threatening deterioration of the following system(s) required my full and direct attention, intervention and personal management. The time I documented below is in addition to time spent performing reported procedures but includes the following listed in this critical care notation. Medical Decision Making - Medical Records Medical records reviewed: Yes: I reviewed the patient's medical records. - Mian Inquiry Pt receiving controlled substance: No Vital Signs: 07/28/17 00:12 Temperature 98.9 F Temperature Source Oral Pulse Rate [Right Radial] 85 Respiratory Rate 20 Blood Pressure [Right Arm] 132/61 Blood Pressure Mean [Right Arm] 84 02 Sat by Pulse Oximetry 98 - Lab Data Lab results reviewed: Yes: I reviewed the patient's lab results. Lab Results 07/28/17 00:45: WBC 6.7, RBC 4.53, Hgb 13.3, Hct 41.7, MCV 91.9, MCH 29.4, MCHC 32.0, RDW 14.1, Plt Count 224, MPV 9.1, Neut % (Auto) 67.9, Lymph % (Auto) 20.9 , [place] % (Auto) 6.3, Eos % (Auto) 4.1, Baso % (Auto) 0.7, Neut # (Auto) 4.5, Lymph # (Auto) 1.4, [place] # (Auto) 0.4, Eos # (Auto) 0.3, Baso # (Auto) 0.1 07/28/17 00:45: Sodium 135 L, Potassium 3.9, Chloride 101, Carbon Dioxide 27, Anion Gap 10.9, BUN 8, Creatinine 0.92, Estimated Creat Clear 43, Estimated GFR 61, Est GFR ( Amer) 73, Glucose 471 H*, Calcium 8.9, Total Bilirubin 0.6 , AST 11 L, ALT 14, Alkaline Phosphatase 109, C-Reactive Protein 0.7, Total Protein 6.8, Albumin 3.2 L, Globulin 3.6 H, Albumin/Globulin Ratio 0.9 L 07/28/17 00:45: Lactic Acid 1.6 07/28/17 00:45: ESR 19 Result diagrams: 07/28/17 00:45 07/28/17 00:45 Orders (Tests/Meds): ORDERS Category Date Time Status CT foot LT wo con Stat Cat Scan 07/28/17 00:28 Taken Blood Culture Stat Micro 07/28/17 00:45 Received Wound Culture and Gram Stain Stat Micro 07/28/17 01:25 Received - CT Data CT Scan: Other (foot) Time Received: 02:[address] Reviewed: Yes: I have viewed the radiologist's interpretation Preliminary Findings: Abnormal (see report) - Physician Consults Physician Consulted: winston Reason -: Admission Skin/Abscess/FB HPI - General Chief complaint: Wound/Laceration Stated complaint: toe on left foot green and warm to touch Time Seen by Provider: 07/28/17 00:23 Mode of Arrival: Wheelchair Limitations: Physical Limitations Description of Symptoms (Recalled from ER Triage Doc. by RN): left 2nd toe wound with green drainage. foot redness and swelling and pain. pt called her doctor and was told to come in sunday to see her but she couldnt wait. - History of Present Illness HPI narrative: progressive reddness and swelling lt foot progressive over the last few days MD complaint: abscess/boil Onset (ago): day(s) Tetanus up to date: unsure Location: L foot Severity: moderate Quality: dull - Related Data Home Medications Medication Instructions Recorded Confirmed albuterol sulfate HFA 90 1 puff INHALATION NEEDED PRN 16 05/24/17 07/28/17 mcg/actuation aerosol inhaler Days #18 atorvastatin 80 mg tablet 80 mg PO DAILY 30 Days #30 05/24/17 07/28/17 clopidogrel 75 mg tablet 75 mg PO DAILY 30 Days #30 05/24/17 07/28/17 gabapentin 600 mg tablet 600 mg PO TID 05/24/17 07/28/17 omeprazole 20 mg capsule,delayed 20 mg PO DAILY 30 Days #30 05/24/17 07/28/17 release ropinirole 1 mg tablet 1 mg PO HS 30 Days #30 05/24/17 07/28/17 valsartan 160 mg tablet 160 mg PO DAILY 30 Days #30 05/24/17 07/28/17 apixaban 5 mg tablet 5 mg PO BID 07/19/17 07/28/17 dilTIAZem HCl [Cardizem Cd] 120 mg PO ONCE 07/28/17 07/28/17 levoFLOXacin [Levaquin 500mg 500 mg PO Q24H 07/28/17 07/28/17 tab] Allergies Allergy/AdvReac Type Severity Reaction Status Date / Time ibuprofen [IBUPROFEN] Allergy Severe I-HIVES Verified 07/19/17 13:00 aspirin [ASPIRIN] Allergy Unknown Verified 07/19/17 13:00 zolpidem [From AMBIEN] Allergy Unknown Verified 07/19/17 13:00 [facility] History I have reviewed the patient's past medical history: Yes Medical History: Reports:: Congestive Heart Failure, Diabetes Mellitus Type 2, Hyperlipidemia, Hypertension, MRSA, Peripheral Artery Disease, Peripheral Vascular Disease Denies:: Cancer Other Medical History: Reports: Blood Transfusion Reaction Laterality Cases: Left: Lumpectomy, Right: Other Other Surgeries: Yes: Appendectomy, Cardiac Catheterization, Colonoscopy, C- section, EGD, Hysterectomy-Total, Other Amputation: Yes Fractures: No Comment: Neck Surgery - Social History Smoking Status: Current every day smoker Tobacco Type: cigarettes # Packs/Day (cigarettes): 1 Alcohol Intake: never Alcohol Intake Frequency:: other Substance Use Type: denies use Occupational Status: disabled Household Members: children - Psychiatric History Expresses thoughts of harming self/others: None Suicide Plan Description: No Plan Family Hx:: Diabetes, Cancer, Coronary Artery Disease ROS Obtained: Yes All systems reviewed & no additional complaints - Constitutional Constitutional: Denies fever(s) - Eyes Eyes: Denies change in vision - ENT Ears, Nose, Mouth, and Throat: Denies sore throat - Cardiovascular Cardiovascular: Denies chest pain at rest - Respiratory Respiratory: No cough - Gastrointestinal Gastrointestingal: Denies: abdominal pain - Genitourinary Female Genitourinary: Denies hematuria - Musculoskeletal Musculoskeletal: Reports as per HPI, Reports joint pain, Reports joint swelling - Integumentary/Breasts Skin/Breast: Reports other (reddness and swelling lt foot and second toe ) - Neurologic Neurologic: Denies seizure-like activity Physical Exam - General General appearance: in no apparent distress - Head Head exam: normocephalic - Eye Eye exam: Present: PERRL, EOMI - ENT ENT exam: Present: mucous membranes moist - Neck Neck exam: Present: trachea midline - Respiratory Respiratory exam: Present: respiratory distress - Cardiovascular Cardiovascular exam: Present: regular rate, systolic murmur - Abdominal Exam Abdominal exam: Present: soft - Expanded Lower Extremity Exam Left Foot/toe exam: Present: tenderness, swelling, erythema (no odor and no purulent drainage ) - Neurological Exam Neurological exam: Present: alert, oriented X3, CN II-XII intact - Psychiatric Psychiatric exam: Present: normal affect - Skin Skin exam: Present: other (lt foot changes )
[2017-07-28 00:53] LABS: Basophils # 0.1 K/mm3 (0-0.2); Basophils % 0.7 % (0.1-2.0); Eosinophils # 0.3 K/mm3 (0.0-0.4); Eosinophils % 4.1 % (0.1-12.0); Hematocrit 41.7 % (37.0-47.0); Hemoglobin 13.3 g/dL (12.2-16.2); Lymphocytes # 1.4 K/mm3 (0.7-4.5); Lymphocytes % 20.9 K/mm3 (10-50); Mean Corpuscular Hemoglobin 29.4 pg (27.0-31.2); Mean Corpuscular Volume 91.9 fl (81-99); Mean Platelet Volume 9.1 fl (7.4-10.4); Monocytes # 0.4 K/mm3 (0.1-1.0); Monocytes % 6.3 % (1.7-9.3); Neutrophils # 4.5 K/mm3 (1.8-7.8); Neutrophils % 67.9 % (37.0-80.0); Platelet Count 224 K/mm3 (142-424); Red Blood Count 4.53 M/mm3 (4.20-5.40); Red Cell Distribution Width 14.1 % (11.5-17.5); White Blood Count 6.7 K/mm3 (4.8-10.8)
[2017-07-28 01:12] LABS: Albumin Level 3.2 gm/dL (3.4-5.0); Albumin/Globulin Ratio 0.9 (1.1-1.8); Anion Gap 10.9 mEq/L (5-15); Bilirubin,Total 0.6 mg/dL (0.2-1.0); C-Reactive Protein 0.7 mg/L (0.0-0.9); Calcium 8.9 mg/dL (8.5-10.1); Globulin 3.6 gm/dl (1.3-3.2); Potassium 3.9 mmoL/L (3.5-5.1); Total Protein,Serum 6.8 gm/dL (6.4-8.2)
[2017-07-28 06:54] LABS: Basophils % 0.7 % (0.1-2.0); Eosinophils # 0.3 K/mm3 (0.0-0.4); Eosinophils % 5.5 % (0.1-12.0); Lymphocytes # 1.3 K/mm3 (0.7-4.5); Lymphocytes % 24.5 K/mm3 (10-50); Mean Corpuscular HGB Conc 32.4 g/dL (31.8-35.4); Mean Corpuscular Hemoglobin 29.4 pg (27.0-31.2); Mean Corpuscular Volume 90.7 fl (81-99); Mean Platelet Volume 9.5 fl (7.4-10.4); Monocytes # 0.3 K/mm3 (0.1-1.0); Monocytes % 5.6 % (1.7-9.3); Neutrophils # 3.5 K/mm3 (1.8-7.8); Neutrophils % 63.7 % (37.0-80.0); Platelet Count 209 K/mm3 (142-424); Red Blood Count 4.08 M/mm3 (4.20-5.40); Red Cell Distribution Width 14.1 % (11.5-17.5); White Blood Count 5.5 K/mm3 (4.8-10.8)
[2017-07-28 06:57] LABS: INR 1.05 (0.9-1.1); Prothrombin Time 11.4 seconds (9.4-11.8)
[2017-07-28 07:01] LABS: Anion Gap 7.9 mEq/L (5-15); Phosphorous 3.5 mg/dL (2.4-4.9); Potassium 3.9 mmoL/L (3.5-5.1)
--- NOTE | 2017-07-28 08:24 | Pharmacy Consult Notes ---
- Pharmacy Consult Date: 07/28/17 Time: 08:22 Referring provider: DR. WHITLOCK Reason for Consult:: VANCOMYCIN DOSING Allergies and ADEs:: Allergies Allergy/AdvReac Type Severity Reaction Status Date / Time ibuprofen [IBUPROFEN] Allergy Severe I-HIVES Verified 07/28/17 03:24 aspirin [ASPIRIN] Allergy Unknown Verified 07/28/17 03:24 zolpidem [From AMBIEN] Allergy Unknown Verified 07/28/17 03:24 Home Medications:: Home Medications Medication Instructions Recorded Confirmed Type atorvastatin 80 mg tablet 80 mg PO DAILY 30 Days #30 05/24/17 07/28/17 History clopidogrel 75 mg tablet 75 mg PO DAILY 30 Days #30 05/24/17 07/28/17 History gabapentin 600 mg tablet 600 mg PO TID 05/24/17 07/28/17 History omeprazole 20 mg capsule,delayed 20 mg PO DAILY 30 Days #30 05/24/17 07/28/17 History release ropinirole 1 mg tablet 1 mg PO HS 30 Days #30 05/24/17 07/28/17 History valsartan 160 mg tablet 160 mg PO DAILY 30 Days #30 05/24/17 07/28/17 History apixaban 5 mg tablet 5 mg PO BID 07/19/17 07/28/17 History Albuterol Sulfate [Albuterol HFA 1 puff INHALATION BID 07/28/17 07/28/17 History Inhaler] dilTIAZem HCl [Cardizem Cd] 120 mg PO ONCE 07/28/17 07/28/17 History levoFLOXacin [Levaquin 500mg 500 mg PO Q24H 07/28/17 07/28/17 History tab] Height: 1.57 m Weight: 57.181 kg Laboratory Results:: Laboratory Results - last 24 hr 07/28/17 00:45: WBC 6.7, RBC 4.53, Hgb 13.3, Hct 41.7, MCV 91.9, MCH 29.4, MCHC 32.0, RDW 14.1, Plt Count 224, MPV 9.1, Neut % (Auto) 67.9, Lymph % (Auto) 20.9 , [place] % (Auto) 6.3, Eos % (Auto) 4.1, Baso % (Auto) 0.7, Neut # (Auto) 4.5, Lymph # (Auto) 1.4, [place] # (Auto) 0.4, Eos # (Auto) 0.3, Baso # (Auto) 0.1 07/28/17 00:45: Sodium 135 L, Potassium 3.9, Chloride 101, Carbon Dioxide 27, Anion Gap 10.9, BUN 8, Creatinine 0.92, Estimated Creat Clear 43, Estimated GFR 61, Est GFR ( Amer) 73, Glucose 471 H*, Calcium 8.9, Total Bilirubin 0.6 , AST 11 L, ALT 14, Alkaline Phosphatase 109, C-Reactive Protein 0.7, Total Protein 6.8, Albumin 3.2 L, Globulin 3.6 H, Albumin/Globulin Ratio 0.9 L 07/28/17 00:45: Lactic Acid 1.6 07/28/17 00:45: ESR 19 07/28/17 05:54: POC Glucose 342 H* 07/28/17 06:20: WBC 5.5, RBC 4.08 L, Hgb 12.0 L, Hct 37.0, MCV 90.7, MCH 29.4, MCHC 32.4, RDW 14.1, Plt Count 209, MPV 9.5, Neut % (Auto) 63.7, Lymph % (Auto) 24.5, [place] % (Auto) 5.6, Eos % (Auto) 5.5, Baso % (Auto) 0.7, Neut # (Auto) 3.5 , Lymph # (Auto) 1.3, [place] # (Auto) 0.3, Eos # (Auto) 0.3, Baso # (Auto) 0.0 07/28/17 06:20: PT 11.4, INR 1.05 07/28/17 06:20: Sodium 139, Potassium 3.9, Chloride 105, Carbon Dioxide 30, Anion Gap 7.9, BUN 7, Creatinine 0.76, Estimated Creat Clear 49, Estimated GFR 76, Est GFR ( Amer) 92 D, Glucose 360 H D, Phosphorus 3.5, Magnesium 1.5 Medical History: Reports:: Congestive Heart Failure, Diabetes Mellitus Type 2, Hyperlipidemia, Hypertension, MRSA, Peripheral Artery Disease, Peripheral Vascular Disease Denies:: Cancer Assessment and Plan - Assessment and plan all Dx Assessment and Plan for all problems:: BASED ON PATIENT FACTORS, RECOMMEND VANCOMYCIN DOSE OF 1,000MG IV Q24H. PHARMACY WILL OBTAIN TROUGH LEVEL PRIOR TO FOURTH DOSE AND ADJUST DOSE APPROPRIATE AT THAT POINT. -АНДРЕЙ HONEYCUTTD
--- NOTE | 2017-07-28 08:29 | History & Physical Report ---
*Admission Date: 07/28/17 *Chief complaint: Left foot pain and redness *History of present illness: 66-year-old white female with history of CHF, diabetes, significant peripheral arterial disease with amputations of right foot and toe amputations on the left , who has been on levofloxacin over the past couple of days as an outpatient because of redness and cellulitis of the left second toe. This has not improved , came to the emergency department last night, where CT scan revealed evidence of osteomyelitis and cellulitis was noted not to improve significantly by her report. She is admitted for IV antibiotics and podiatry consultation for possible debridement versus toe amputation. [facility] History Medical History: Reports:: Congestive Heart Failure, Diabetes Mellitus Type 2, Hyperlipidemia, Hypertension, MRSA, Peripheral Artery Disease, Peripheral Vascular Disease Denies:: Cancer Other Medical History: Reports: Blood Transfusion Reaction Laterality Cases: Left: Lumpectomy, Right: Other (BKA) Other Surgeries: Yes: Appendectomy, Cardiac Catheterization, Colonoscopy, C- section, EGD, Hysterectomy-Total, Other Amputation: Yes Fractures: No Comment: Right BKA, left great toe amputation - *Social History Educational Level: Attended High School Smoking Status: Current every day smoker Tobacco Type: cigarettes # Packs/Day (cigarettes): 1 Alcohol Intake: never Alcohol Intake Frequency:: other Substance Use Type: denies use Occupational Status: disabled Housing: house Household Members: children - Psychiatric History Expresses thoughts of harming self/others: None Suicide Plan Description: No Plan *Family Hx:: Diabetes, Cancer, Coronary Artery Disease Review of Systems - Review of Systems Review of systems:: unable to obtain, other, pertinent systems reviewed and negative unless documented below - *Neurologic Denies seizure-like activity Meds Home Medications Medication Instructions Recorded Confirmed Type atorvastatin 80 mg tablet 80 mg PO DAILY 30 Days #30 05/24/17 07/28/17 History clopidogrel 75 mg tablet 75 mg PO DAILY 30 Days #30 05/24/17 07/28/17 History gabapentin 600 mg tablet 600 mg PO TID 05/24/17 07/28/17 History omeprazole 20 mg capsule,delayed 20 mg PO DAILY 30 Days #30 05/24/17 07/28/17 History release ropinirole 1 mg tablet 1 mg PO HS 30 Days #30 05/24/17 07/28/17 History valsartan 160 mg tablet 160 mg PO DAILY 30 Days #30 05/24/17 07/28/17 History apixaban 5 mg tablet 5 mg PO BID 07/19/17 07/28/17 History Albuterol Sulfate [Albuterol HFA 1 puff INHALATION BID 07/28/17 07/28/17 History Inhaler] dilTIAZem HCl [Cardizem Cd] 120 mg PO ONCE 07/28/17 07/28/17 History levoFLOXacin [Levaquin 500mg 500 mg PO Q24H 07/28/17 07/28/17 History tab] Allergies Allergy/AdvReac Type Severity Reaction Status Date / Time ibuprofen [IBUPROFEN] Allergy Severe I-HIVES Verified 07/28/17 03:24 aspirin [ASPIRIN] Allergy Unknown Verified 07/28/17 03:24 zolpidem [From AMBIEN] Allergy Unknown Verified 07/28/17 03:24 Exam Vital signs and Labs for Last 24 Hours: Temp Pulse Resp BP Pulse Ox 99.0 F 88 18 110/49 95 07/28/17 07:49 07/28/17 07:49 07/28/17 07:49 07/28/17 07:49 07/28/17 07:49 Laboratory Results - last 24 hr 07/28/17 00:45: WBC 6.7, RBC 4.53, Hgb 13.3, Hct 41.7, MCV 91.9, MCH 29.4, MCHC 32.0, RDW 14.1, Plt Count 224, MPV 9.1, Neut % (Auto) 67.9, Lymph % (Auto) 20.9 , [place] % (Auto) 6.3, Eos % (Auto) 4.1, Baso % (Auto) 0.7, Neut # (Auto) 4.5, Lymph # (Auto) 1.4, [place] # (Auto) 0.4, Eos # (Auto) 0.3, Baso # (Auto) 0.1 07/28/17 00:45: Sodium 135 L, Potassium 3.9, Chloride 101, Carbon Dioxide 27, Anion Gap 10.9, BUN 8, Creatinine 0.92, Estimated Creat Clear 43, Estimated GFR 61, Est GFR ( Amer) 73, Glucose 471 H*, Calcium 8.9, Total Bilirubin 0.6 , AST 11 L, ALT 14, Alkaline Phosphatase 109, C-Reactive Protein 0.7, Total Protein 6.8, Albumin 3.2 L, Globulin 3.6 H, Albumin/Globulin Ratio 0.9 L 07/28/17 00:45: Lactic Acid 1.6 07/28/17 00:45: ESR 19 07/28/17 05:54: POC Glucose 342 H* 07/28/17 06:20: WBC 5.5, RBC 4.08 L, Hgb 12.0 L, Hct 37.0, MCV 90.7, MCH 29.4, MCHC 32.4, RDW 14.1, Plt Count 209, MPV 9.5, Neut % (Auto) 63.7, Lymph % (Auto) 24.5, [place] % (Auto) 5.6, Eos % (Auto) 5.5, Baso % (Auto) 0.7, Neut # (Auto) 3.5 , Lymph # (Auto) 1.3, [place] # (Auto) 0.3, Eos # (Auto) 0.3, Baso # (Auto) 0.0 07/28/17 06:20: PT 11.4, INR 1.05 07/28/17 06:20: Sodium 139, Potassium 3.9, Chloride 105, Carbon Dioxide 30, Anion Gap 7.9, BUN 7, Creatinine 0.76, Estimated Creat Clear 49, Estimated GFR 76, Est GFR ( Amer) 92 D, Glucose 360 H D, Phosphorus 3.5, Magnesium 1.5 I & O for Last 24 hours: Intake & Output 07/25/17 07/26/17 07/27/17 07/28/17 11:59 11:59 11:59 11:59 Intake Total 100 / 100 Output Total 600 / 600 Balance -500 / -500 Weight 126 lb 1 oz Narrative: Patient is alert. Pleasant. Talkative. Oropharynx clear. Lungs with rhonchi and expiratory wheezes -- this seems to be her baseline, fairly good air entry. No crackles. Rate regular. Soft flow murmur. Abdomen soft and nontender. Able to move all of her extremities. Right BKA noted with well-healed stump. Left foot with absent great toe, absent pulses. Left second toe is reddened, wrapped in gauze with some purulent green drainage from the tip of the toe. H&P: Result - Labs Labs: Short CBC 07/28/17 07/28/17 Range/Units 00:45 06:20 WBC 6.7 5.5 (4.8-10.8) K/mm3 Hgb 13.3 12.0 L (12.2-16.2) g/dL Hct 41.7 37.0 (37.0-47.0) % Plt Count 224 209 (142-424) K/mm3 BMP 07/28/17 07/28/17 00:45 06:20 Sodium 135 L 139 Potassium 3.9 3.9 Chloride 101 105 Carbon Dioxide 27 30 BUN 8 7 Creatinine 0.92 0.76 Glucose 471 H* 360 H D Calcium 8.9 Liver Function 07/28/17 Range/Units 00:45 Total Bilirubin 0.6 (0.2-1.0) mg/dL AST 11 L (15-37) U/L ALT 14 (12-78) U/L Alkaline Phosphatase 109 (46-116) U/L Albumin 3.2 L (3.4-5.0) gm/dL Assessment and Plan (1) Peripheral arterial disease Current visit: Yes Status: Acute Category: Medical Code(s): I73.9 - Peripheral vascular disease, unspecified (2) Osteomyelitis of ankle and foot Current visit: Yes Status: Acute Category: Medical Code(s): M86.9 - Osteomyelitis, unspecified (3) Diabetes Current visit: Yes Status: Chronic Qualifiers: Diabetes mellitus type: type 1 Diabetes mellitus complication status: with unspecified complications Qualified Code(s): E10.8 - Type 1 diabetes mellitus with unspecified complications Category: Medical Code(s): E11.9 - Type 2 diabetes mellitus without complications (4) Tobacco use disorder, continuous Current visit: Yes Status: Acute Category: Medical Code(s): F17.209 - Nicotine dependence, unspecified, with unspecified nicotine-induced disorders - Assessment and plan all Dx Assessment and Plan for all problems:: Agree with admission, given the failure of outpatient therapy. Broad-spectrum IV antibiotics to cover gram-positive as well as ampicillin/sulbactam for gram- negative issues. Continue glucose monitoring. Nebulizers and pulmonary toilet for COPD. Nicotine patch. Podiatry consultation.
--- NOTE | 2017-07-28 09:19 | Pharmacy Consult Notes ---
[facility] Pharmacy VTE Monitoring - Patient Demographics Admission date: 07/28/17 Report Date: 07/28/17 Time: 09:19 Allergies/Adverse Reactions: Patient Allergies ibuprofen [IBUPROFEN] Allergy (Severe, Verified 07/28/17 03:24) I-HIVES aspirin [ASPIRIN] Allergy (Unknown, Verified 07/28/17 03:24) zolpidem [From AMBIEN] Allergy (Unknown, Verified 07/28/17 03:24) Height: 1.57 m Weight: 57.181 kg Patient Problems: Current Active Problems Osteomyelitis of ankle and foot (Acute) Peripheral arterial disease (Acute) Tobacco use disorder, continuous (Acute) Diabetes (Chronic) - VTE Risk Labs: VTE Related Lab Results Hgb 12.0 g/dL (12.2-16.2) L 07/28/17 06:20 Hct 37.0 % (37.0-47.0) 07/28/17 06:20 Plt Count 209 K/mm3 (142-424) 07/28/17 06:20 PT 11.4 seconds (9.4-11.8) 07/28/17 06:20 INR 1.05 (0.9-1.1) 07/28/17 06:20 BUN 7 mg/dL (7-18) 07/28/17 06:20 Creatinine 0.76 mg/dL (0.55-1.02) 07/28/17 06:20 Estimated Creat Clear 49 mL/min (0-300) 07/28/17 06:20 Was VTE Risk Assessment Performed: No VTE Score: 4 VTE Risk Level: Low Risk - Prophylaxis VTE Prophylaxis Ordered?: Yes Types of VTE Prophylaxis: TEDS Knee High (APPLY TO UNAFFECTED LEG) Location of Applied Device: Right Leg - VTE Diagnosis Confirmed Treatment or plan recommended: Continue Current Treatment
--- NOTE | 2017-07-29 07:47 | Progress Note ---
[facility] Anesthesia Checklist - Patient Identification Patient Identification: Arm Band, Verbal (Name & ) - Structural Data Admitted From: Inpatient Consent for Planned Operative Procedure(s) Verified: Yes Verified Documents: Surgical Consent, History and Physical - NPO Status Verified Time NPO: 00:00 - Additional verifications Patient : No Anesthesia Reactions: No - Airway Assessment C-Spine Mobility Assessed: Yes TMJ Mobility Assessed: Yes Dentition: Poor Dentition (Two upper teeth present) - Neurological Assessment Level of Consciousness: Awake Hx Seizures: No Numbness or tingling in extremities: Yes (Peripheral neuropathy) - Anesthesia Plan Anesthesia Risk discussed: Yes Anesthesia Plan: Verified ASA Class: III (Emergent) Anesthesia Type: MAC (Pt states "I do not want to go to sleep") [facility] Anesthesia HX Medical History: Reports:: Asthma, Congestive Heart Failure, Chronic Obstructive Pulmonary Disease (COPD), Diabetes Mellitus Type 2, Gastroesophageal Reflux Disease(GERD), Hyperlipidemia, Hypertension, MRSA, Peripheral Artery Disease, Peripheral Vascular Disease Denies:: Cancer Other Medical History: Reports: Blood Transfusion Reaction Comment: Positive for smoking Laterality Cases: Left: Lumpectomy, Right: Other (BKA) Other Surgeries: Yes: Appendectomy, Cardiac Catheterization, Colonoscopy, C- section, EGD, Hysterectomy-Total, Other Amputation: Yes Fractures: No *Family Hx:: Diabetes, Cancer, Coronary Artery Disease
--- NOTE | 2017-07-29 07:50 | History & Physical Report ---
*Admission Date: 07/28/17 *Chief complaint: Left 2nd toe osteomyelitis, cellulitis *History of present illness: Ms. Marie is a 66-year-old white female with history of CHF, diabetes, significant peripheral arterial disease with amputations of right foot and left hallux amputation, who has been on levofloxacin over the past couple of days as an outpatient because of redness and cellulitis of the left second toe. This has not improved, came to the emergency department last night, where CT scan revealed evidence of osteomyelitis and cellulitis was noted not to improve significantly by her report. She is admitted for IV antibiotics and podiatry consultation for possible debridement versus toe amputation. [facility] History Medical History: Reports:: Congestive Heart Failure, Diabetes Mellitus Type 2, Hyperlipidemia, Hypertension, MRSA, Peripheral Artery Disease, Peripheral Vascular Disease Denies:: Cancer Other Medical History: Reports: Blood Transfusion Reaction Laterality Cases: Left: Lumpectomy, Right: Other (BKA) Other Surgeries: Yes: Appendectomy, Cardiac Catheterization, Colonoscopy, C- section, EGD, Hysterectomy-Total, Other Amputation: Yes Fractures: No - *Social History Educational Level: Attended High School Smoking Status: Current every day smoker Tobacco Type: cigarettes # Packs/Day (cigarettes): 1 Alcohol Intake: never Alcohol Intake Frequency:: other Substance Use Type: denies use Occupational Status: disabled Housing: house Household Members: children - Psychiatric History Expresses thoughts of harming self/others: None Suicide Plan Description: No Plan *Family Hx:: Diabetes, Cancer, Coronary Artery Disease Review of Systems - *Cardiovascular Reports foot swelling, Denies shortness of breath - *Respiratory Denies cough - *Gastrointestinal Denies abdominal pain - *Genitourinary Denies urinary incontinence - *Musculoskeletal Reports joint pain, Reports deformity, Reports limited joint movement - *Neurologic Reports burning sensations, Reports tingling/numbness/burning sensations, Denies seizure-like activity - Psychiatric Denies behavioral changes - Endocrine Reports increased thirst Meds Home Medications Medication Instructions Recorded Confirmed Type atorvastatin 80 mg tablet 80 mg PO DAILY 30 Days #30 05/24/17 07/28/17 History clopidogrel 75 mg tablet 75 mg PO DAILY 30 Days #30 05/24/17 07/28/17 History gabapentin 600 mg tablet 600 mg PO TID 05/24/17 07/28/17 History omeprazole 20 mg capsule,delayed 20 mg PO DAILY 30 Days #30 05/24/17 07/28/17 History release ropinirole 1 mg tablet 1 mg PO HS 30 Days #30 05/24/17 07/28/17 History valsartan 160 mg tablet 160 mg PO DAILY 30 Days #30 05/24/17 07/28/17 History apixaban 5 mg tablet 5 mg PO BID 07/19/17 07/28/17 History Albuterol Sulfate [Albuterol HFA 1 puff INHALATION BID 07/28/17 07/28/17 History Inhaler] dilTIAZem HCl [Cardizem Cd] 120 mg PO DAILY 07/28/17 07/28/17 History levoFLOXacin [Levaquin 500mg 500 mg PO DAILY 07/28/17 07/28/17 History tab] Allergies Allergy/AdvReac Type Severity Reaction Status Date / Time ibuprofen [IBUPROFEN] Allergy Severe I-HIVES Verified 07/28/17 03:24 aspirin [ASPIRIN] Allergy Unknown Verified 07/28/17 03:24 zolpidem [From AMBIEN] Allergy Unknown Verified 07/28/17 03:24 Exam Vital signs and Labs for Last 24 Hours: Temp Pulse Resp BP Pulse Ox 99.0 F 87 20 152/49 94 L 07/29/17 03:39 07/29/17 06:37 07/29/17 03:39 07/29/17 03:39 07/29/17 03:39 Laboratory Results - last 24 hr 07/28/17 10:43: POC Glucose 263 H 07/28/17 17:08: POC Glucose 290 H 07/28/17 20:31: POC Glucose 476 H* 07/29/17 05:43: POC Glucose 367 H* I & O for Last 24 hours: Intake & Output 07/26/17 07/27/17 07/28/17 07/29/17 11:59 11:59 11:59 11:59 Intake Total 100 / 100 1912 / 1912 Output Total 600 / 600 1800 / 1800 Balance -500 / -500 112 / 112 Weight 126 lb 1 oz 133 lb 6 oz Microbiology Reports for the Last 24 Hours: Microbiology 07/28/17 01:25 Toe,Left Second Gram Stain - Final 07/28/17 01:25 Toe,Left Second Wound Culture - Preliminary Gram Positive Cocci 04/28/18 00:45 Blood Blood Culture - Preliminary NO GROWTH AFTER 24 HOURS 07/28/17 00:45 Blood Blood Culture - Preliminary NO GROWTH AFTER 24 HOURS - *Routine HEENT Exam Head: Present: normocephalic - *Routine Neck Exam Absent: JVD - *Routine Respiratory Exam Present: accessory muscle use. Absent: respiratory distress - *Routine Cardiovascular Exam Present: RRR - *Routine Abdominal Exam Present: soft - *Routine Rectal Exam Patient deferred: visual exam - *Routine Exam Patient deferred: external exam - *Routine Extremities Exam Present: joint swelling, amputation. Absent: pulses intact, normal capillary refill - *Routine Skin Exam Present: erythema, wounds - Detailed Lower Extremity Exam Foot/Toes: Left erythema (L 2nd toe extending to proximal 2nd MPJ), Left swelling (L 2nd toe), Left wound (L dorsal 2nd PIPJ with green purulence), Bilateral amputation (R BKA, L Hallux amputation) Comments: Left 2nd toe DM Ulcer, Osteomyelitis: Right BKA. Left hallux amp. Left 2nd toe ulcer has fibrotic tissue and slough noted over the PIPJ. The deep fascia and tendon are exposed. Green purulence drainage noted. Mild malodor. Erythema and edema extending to the 2nd MPJ. No bleeding noted. Results - Labs Result Diagrams: 07/28/17 06:20 07/28/17 06:20 Labs: Abnormal lab results 07/28/17 07/28/17 07/28/17 Range/Units 10:43 17:08 20:31 POC Glucose 263 H 290 H 476 H* (70-110) 07/29/17 Range/Units 05:43 POC Glucose 367 H* (70-110) H & H 07/28/17 07/28/17 Range/Units 00:45 06:20 Hgb 13.3 12.0 L (12.2-16.2) g/dL Hct 41.7 37.0 (37.0-47.0) % Coagulation 07/28/17 Range/Units 06:20 INR 1.05 (0.9-1.1) All other labs normal. Assessment and Plan (1) Peripheral arterial disease Current visit: Yes Status: Acute Category: Medical Code(s): I73.9 - Peripheral vascular disease, unspecified (2) Osteomyelitis of ankle and foot Start date: 07/28/17 Start time: 08:00 Current visit: Yes Status: Acute Category: Medical Code(s): M86.9 - Osteomyelitis, unspecified PRE-OP AMPUTATION/INFECTION: Left 2nd toe DM Ulcer, Osteomyelitis: Right BKA. Left hallux amp. Left 2nd toe ulcer has fibrotic tissue and slough noted over the PIPJ. The deep fascia and tendon are exposed. Green purulence drainage noted. Mild malodor. Erythema and edema extending to the 2nd MPJ. No bleeding noted. Had a long discussion with the patient in regards to conservative versus surgical management of the ulcer. The ulcer was stable with no drainage and no signs of infection. However, patient had recent chills, obvious drainage with increased erythema and edema to the left toe. I explained that if the wound were to get infected and if she were to get septic she needs to come immediately to the ER for admission and amputation. Extensive PAD and recent heart diagnoses per Dr. Ash. I discussed with the patient the toe amputation is a last resort. Radiographs and CT of the left foot were reviewed and discussed with the patient. X-rays show osteomyelitis with cortical erosion, increased soft tissue swelling. We discussed conservative versus surgical treatment options. Conservative treatment options include local wound care, oral and IV antibiotics, change in shoe wear, taping/padding, and off-loading. We discussed surgical intervention for amputation of the left second toe. Patient understands that there is a chance that the toes can migrate to fill the gap or the foot may change shape after surgery. Patient also understands that they could have wound healing complications including delayed healing and infection. We discussed that if the wound does not heal, it is possible that they may need a more proximal amputation and could result in further loss of digits, loss of partial foot or loss of leg. We discussed the risks and benefits in great detail. Other surgical risks include: prolonged pain and swelling, further infection requiring oral or IV antibiotics, delay in healing of soft tissue or bone, nerve or blood vessel damage, CRPS/RSD, DVT, anesthesia complications, and even . Labs reviewed. Patient verbalized understanding, written consent obtained. 1. NPO since midnight 2. Surgery today for left 2nd toe amputation 3. Contine IV abx 4. Educated the patient again on better diet, blood sugar control (3) Diabetes Current visit: Yes Status: Chronic Qualifiers: Diabetes mellitus type: type 1 Diabetes mellitus complication status: with unspecified complications Qualified Code(s): E10.8 - Type 1 diabetes mellitus with unspecified complications Category: Medical Code(s): E11.9 - Type 2 diabetes mellitus without complications (4) Tobacco use disorder, continuous Current visit: Yes Status: Acute Category: Medical Code(s): F17.209 - Nicotine dependence, unspecified, with unspecified nicotine-induced disorders
--- NOTE | 2017-07-29 08:07 | Operative Note ---
Date of procedure: 07/29/17 Pre-op Diagnosis:: 1. Left foot cellulitis 2. Left 2nd toe DM ulcer 3. Left 2nd toe osteomyelitis Post-op Diagnosis:: 1. Left foot cellulitis 2. Left 2nd toe DM ulcer 3. Left 2nd toe osteomyelitis Procedure performed:: 1. Left foot irrigation and debridement 2. Left 2nd toe amputation Surgeon:: Sulma Esquivel DPM REAL ESTATE ACCOUNTANT:: Other (Noe Walker) Anesthesia: MAC Estimated blood loss (mL): 2 Clinical Note:: PRE-OP AMPUTATION/INFECTION: Left 2nd toe DM Ulcer, Osteomyelitis: Right BKA. Left hallux amp. Left 2nd toe ulcer has fibrotic tissue and slough noted over the PIPJ. The deep fascia and tendon are exposed. Green purulence drainage noted. Mild malodor. Erythema and edema extending to the 2nd MPJ. No bleeding noted. Had a long discussion with the patient in regards to conservative versus surgical management of the ulcer. The ulcer was stable with no drainage and no signs of infection. However, patient had recent chills, obvious drainage with increased erythema and edema to the left toe. I explained that if the wound were to get infected and if she were to get septic she needs to come immediately to the ER for admission and amputation. Extensive PAD and recent heart diagnoses per Dr. Ash. I discussed with the patient the toe amputation is a last resort. Radiographs and CT of the left foot were reviewed and discussed with the patient. X-rays show osteomyelitis with cortical erosion, increased soft tissue swelling. We discussed conservative versus surgical treatment options. Conservative treatment options include local wound care, oral and IV antibiotics, change in shoe wear, taping/padding, and off-loading. We discussed surgical intervention for amputation of the left second toe. Patient understands that there is a chance that the toes can migrate to fill the gap or the foot may change shape after surgery. Patient also understands that they could have wound healing complications including delayed healing and infection. We discussed that if the wound does not heal, it is possible that they may need a more proximal amputation and could result in further loss of digits, loss of partial foot or loss of leg. We discussed the risks and benefits in great detail. Other surgical risks include: prolonged pain and swelling, further infection requiring oral or IV antibiotics, delay in healing of soft tissue or bone, nerve or blood vessel damage, CRPS/RSD, DVT, anesthesia complications, and even . Labs reviewed. Operative findings:: Left dorsal 2nd digit ulcer with exposed deep fascia, tendon and middle phalanx. No deep purulence. Distal and middle phalanx soft and crumby with signs of erosive irregularities. Proximal phalanx head had cortical erosions. No signs of infection to the metatarsal head. Operative note:: On this date and time patient was deemed an appropriate surgical candidate. With informed consent signed, the patient was taken to the operating theater. The patient was positioned supine. MAC anesthesia was induced. No tourniquet used. Pre-op left second toe block given with 10 cc 0.5% marcaine plain. Left 2nd irrigation and debridement, digit amputation: The left lower extremity was prepped and drapped in normal sterile fashion. Note the patient had a previous right BKA and left hallux amputation. Attention was directed to the left 2nd toe where a dorsal ulcer was noted over the DIPJ. There was exposed deep fascia, extensor tendon and middle phalanx head. Cellulitis is noted extending to the MPJ. Wound probed directly to the bone and <0.5 cc drainage was coming from the wound site (pre-operatively). Intra- operatively, no purulence expressed. A fish mouth incision was mapped out. Utilizing a 15 blade dissection was carried down sharply to the level of the bone around the proximal phalanx which was disarticulated from the metatarsal head. The distal phalanx bone was soft and crumbly and had a slight malodor to it. Portion of it was cut and sent for bone culture and the other part was sent for bone biopsy for pathology. Attention was then directed to the proximal phalanx. The head was soft and easily broken, discolored with cortical erosions noted. The head of the proximal phalanx head was transected and sent for bone culture. The proximal phalanx base was sent as proximal margin. The 2nd met head was intact with no cortical erosions, discoloration or obvious signs of osteomyelitis. Next 3 L of bacitracin irrigation was used to flush the wound with pulse lavage. The wound was reexplored and no further signs of infection noted. Bleeding controlled. No vessels ligated with electrocautery or tied as there was minimal to no blood loss. 3-0 Prolene was used to close skin in an interrupted simple suture fashion. The wounds were cleansed. Xeroform, betadine, dry sterile dressing was then applied to the left foot. The patient was awoken from anesthesia and transferred to recovery with vital signs stable and neurovascular status intact. Materials: 3-0 Prolene Discharge/Plan: Transfer back to the floor. Patient is to maintain dressing clean dry and intact. Continue antibiotics. Partial weight bearing to the left lower extremity with DME assistance (walker, wheelchair). Obtain post op films, left foot, 3 views. Plan for dressing change tomorrow by myself. Tourniquet time (min): 0 Condition: stable Disposition: floor Specimens:: 1. Left 2nd toe distal phalanx bone culture 2. Left 2nd toe distal phalanx bone pathology 3. Left 2nd toe proximal phalanx bone culture 4. Left 2nd toe proximal phalanx bone pathology (proximal margin) Complications:: None
--- NOTE | 2017-07-29 09:07 | Progress Note ---
[facility] Anesthesia Record Part I Intake, IV Amount: 350 Estimated blood loss (mL): 2 Urine output (mL): 0 Blood Products used (#): none Blood Pressure: 131/51 SaO2: 93 Pulse Rate: 81 Respiratory Rate: 16 Temperature: 99.0 F Patient is:: Awake Stable to PACU at:: 09:00
--- NOTE | 2017-07-29 09:08 | Progress Note ---
[facility] Anesthesia Record Part II Discharge Time: 09:30 Destination: Medical Surgical Department PACU nurse assessment reviewed?: Yes Patient Condition:: Good Anesthesia Complications:: None
--- NOTE | 2017-07-29 16:43 | Progress Note ---
Internal Medicine - PN: Subj *Date: 07/29/17 *Time: 16:42 Interval history: Patient evaluated this afternoon postoperatively, operative notes reviewed. Patient is awake and alert. Exam Vital signs and Labs for Last 24 Hours: Temp Pulse Resp BP Pulse Ox 98.6 F 80 20 118/49 98 07/29/17 13:55 07/29/17 13:55 07/29/17 13:55 07/29/17 13:55 07/29/17 13:55 Laboratory Results - last 24 hr 07/28/17 17:08: POC Glucose 290 H 07/28/17 20:31: POC Glucose 476 H* 07/29/17 05:43: POC Glucose 367 H* 07/29/17 07:36: POC Glucose 255 H 07/29/17 09:09: POC Glucose 196 H 07/29/17 10:33: POC Glucose 188 H I & O for Last 24 hours: Intake & Output 07/27/17 07/28/17 07/29/17 07/30/17 11:59 11:59 11:59 11:59 Intake Total 100 / 100 2262 / 2262 480 / 480 Output Total 600 / 600 1800 / 1800 600 / 600 Balance -500 / -500 462 / 462 -120 / -120 Weight 126 lb 1 oz 133 lb 6 oz Microbiology Reports for the Last 24 Hours: Microbiology 07/29/17 09:00 Toe,Left Second Gram Stain - Final 07/29/17 09:00 Toe,Left Second Gram Stain - Final 07/28/17 00:45 Blood Blood Culture - Preliminary Gram Positive Bacilli 07/28/17 01:25 Toe,Left Second Gram Stain - Final 07/28/17 01:25 Toe,Left Second Wound Culture - Preliminary Gram Positive Cocci 07/28/17 00:45 Blood Blood Culture - Preliminary NO GROWTH AFTER 24 HOURS Narrative: Cardiopulmonary exam unchanged, foot heavily bandaged. Operative note reviewed. Assessment and Plan (1) Peripheral arterial disease Current visit: Yes Status: Acute Category: Medical Code(s): I73.9 - Peripheral vascular disease, unspecified (2) Osteomyelitis of ankle and foot Start date: 07/28/17 Start time: 08:00 Current visit: Yes Status: Acute Category: Medical Code(s): M86.9 - Osteomyelitis, unspecified (3) Diabetes Current visit: Yes Status: Chronic Qualifiers: Diabetes mellitus type: type 1 Diabetes mellitus complication status: with unspecified complications Qualified Code(s): E10.8 - Type 1 diabetes mellitus with unspecified complications Category: Medical Code(s): E11.9 - Type 2 diabetes mellitus without complications (4) Tobacco use disorder, continuous Current visit: Yes Status: Acute Category: Medical Code(s): F17.209 - Nicotine dependence, unspecified, with unspecified nicotine-induced disorders - Assessment and plan all Dx Assessment and Plan for all problems:: Continue current antibiotics. Postoperative care. Await cultures from intraoperative biopsies
[2017-07-30 06:50] LABS: Basophils % 0.6 % (0.1-2.0); Eosinophils # 0.4 K/mm3 (0.0-0.4); Eosinophils % 6.7 % (0.1-12.0); Hematocrit 36.4 % (37.0-47.0); Hemoglobin 11.6 g/dL (12.2-16.2); Lymphocytes # 1.5 K/mm3 (0.7-4.5); Lymphocytes % 25.4 K/mm3 (10-50); Mean Corpuscular Hemoglobin 29.6 pg (27.0-31.2); Mean Corpuscular Volume 92.6 fl (81-99); Mean Platelet Volume 9.1 fl (7.4-10.4); Monocytes # 0.3 K/mm3 (0.1-1.0); Monocytes % 5.2 % (1.7-9.3); Neutrophils # 3.7 K/mm3 (1.8-7.8); Neutrophils % 62.1 % (37.0-80.0); Platelet Count 213 K/mm3 (142-424); Red Blood Count 3.93 M/mm3 (4.20-5.40); Red Cell Distribution Width 14.3 % (11.5-17.5)
--- NOTE | 2017-07-30 07:16 | Progress Note ---
Internal Medicine - PN: Subj *Date: 07/30/17 *Time: 07:15 Interval history: Patient has no complaints this morning. She is up and eating breakfast. She has already wheeled herself to the edge of the hospital proximal so she can smoke a cigarette this morning. He denies pain in the foot Exam Vital signs and Labs for Last 24 Hours: Temp Pulse Resp BP Pulse Ox 98.8 F 89 16 126/43 96 07/30/17 04:00 07/30/17 05:54 07/30/17 04:00 07/30/17 04:00 07/30/17 05:55 Laboratory Results - last 24 hr 07/29/17 07:36: POC Glucose 255 H 07/29/17 09:09: POC Glucose 196 H 07/29/17 10:33: POC Glucose 188 H 07/29/17 16:32: POC Glucose 303 H* 07/29/17 21:21: POC Glucose 215 H 07/30/17 06:23: WBC 6.0, RBC 3.93 L, Hgb 11.6 L, Hct 36.4 L, MCV 92.6, MCH 29.6 , MCHC 32.0, RDW 14.3, Plt Count 213, MPV 9.1, Neut % (Auto) 62.1, Lymph % (Auto ) 25.4, [place] % (Auto) 5.2, Eos % (Auto) 6.7, Baso % (Auto) 0.6, Neut # (Auto) 3.7, Lymph # (Auto) 1.5, [place] # (Auto) 0.3, Eos # (Auto) 0.4, Baso # (Auto) 0.0 07/30/17 06:23: C-Reactive Protein 1.4 H D I & O for Last 24 hours: Intake & Output 07/27/17 07/28/17 07/29/17 07/30/17 11:59 11:59 11:59 11:59 Intake Total 100 / 100 2262 / 2262 947 / 947 Output Total 600 / 600 1800 / 1800 1500 / 1500 Balance -500 / -500 462 / 462 -553 / -553 Weight 126 lb 1 oz 133 lb 6 oz 141 lb Microbiology Reports for the Last 24 Hours: Microbiology 07/28/17 01:25 Toe,Left Second Gram Stain - Final 07/28/17 01:25 Toe,Left Second Wound Culture - Final Staphylococcus aureus 07/28/17 00:45 Blood Blood Culture - Preliminary NO GROWTH AFTER 48 HOURS 07/29/17 09:00 Toe,Left Second Gram Stain - Final 07/29/17 09:00 Toe,Left Second Gram Stain - Final 07/28/17 00:45 Blood Blood Culture - Preliminary Gram Positive Bacilli Narrative: She is in no distress. Foot is bandaged and I did not remove the dressing white for Dr. Phillips's evaluation this morning Assessment and Plan (1) Peripheral arterial disease Current visit: Yes Status: Acute Category: Medical Code(s): I73.9 - Peripheral vascular disease, unspecified (2) Osteomyelitis of ankle and foot Start date: 07/28/17 Start time: 08:00 Current visit: Yes Status: Acute Category: Medical Code(s): M86.9 - Osteomyelitis, unspecified (3) Diabetes Current visit: Yes Status: Chronic Qualifiers: Diabetes mellitus type: type 1 Diabetes mellitus complication status: with unspecified complications Qualified Code(s): E10.8 - Type 1 diabetes mellitus with unspecified complications Category: Medical Code(s): E11.9 - Type 2 diabetes mellitus without complications (4) Tobacco use disorder, continuous Current visit: Yes Status: Acute Category: Medical Code(s): F17.209 - Nicotine dependence, unspecified, with unspecified nicotine-induced disorders (5) Cellulitis Current visit: No Status: Acute Qualifiers: Site of cellulitis: extremity Site of cellulitis of extremity: lower extremity Laterality: left Qualified Code(s): L03.116 - Cellulitis of left lower limb Category: Medical Code(s): L03.90 - Cellulitis, unspecified - Assessment and plan all Dx Assessment and Plan for all problems:: 1. Await Dr. Phillips's evaluation and decision making this morning.
--- NOTE | 2017-07-30 07:50 | Progress Note ---
Subjective Date: 07/30/17 Time: 07:25 Principal diagnosis: Left 2nd toe cellulitis, OM Interval history: Patient is resting comfortably in bed. She admits to going out and smoking this morning. She denies N/V, F/C, SOB/CP. PN: Obj Ex Vital signs: Temp Pulse Resp BP Pulse Ox 98.8 F 89 16 126/43 96 07/30/17 04:00 07/30/17 05:54 07/30/17 04:00 07/30/17 04:00 07/30/17 05:55 Narrative: NAD - Constitutional no acute distress - Detailed Lower Extremity Exam Foot/Toes: Left erythema (L 2nd toe amp, decreased erythema), Left swelling ( improving), Left wound (gone with amputation), Bilateral amputation (R BKA, L 1- 2ND AMP) Comments: Sutures are clean dry and intact to the left second metatarsal distally. A second toe has been amputated. Decreased edema and erythema noted. No ascending cellulitis or lymphangitis noted. Nonpalpable lymph nodes. No fluctuance or pain to palpation of the amputation site. No calf or thigh pain noted. Progress Note: A&P (1) Peripheral arterial disease Status: Acute Current Visit: Yes (2) Osteomyelitis of ankle and foot Start date: 07/27/17 Start time: 08:00 Status: Acute Current Visit: Yes (3) Diabetes Status: Chronic Current Visit: Yes (4) Tobacco use disorder, continuous Status: Acute Current Visit: Yes (5) Cellulitis Status: Acute Current Visit: No Assessment and Plan for All Diagnoses:: S/P Left foot irrigation and debridement, 2nd toe amputation on 07/29/17 POD # 1 Wound site stable. Sutures C/D/I to distal 2nd metatarsal. No new signs of infection, drainage or malodor. 1. Wound cleansed with betadine 2. New DSD applied 3. Patient is to change the dressing Th08/02/17 with betadine, 4x4s, ortiz, light Arnaud to secure dsg, no compression 4. Await final bone cultures and path 5. Has Rx Levofloxacin 500mg po qd x 2 wks 6. Smoking cessation 7. Follow up outpt in [facility] Sunday08/06/17
--- NOTE | 2017-07-30 07:52 | Discharge Summary ---
General - General Admission date:: 07/28/17 Discharge date: 07/30/17 HPI HPI: Ms. Marie is a 66-year-old white female with history of CHF, diabetes, significant peripheral arterial disease with amputations of right foot and left hallux amputation, who has been on levofloxacin over the past couple of days as an outpatient because of redness and cellulitis of the left second toe. This has not improved, came to the emergency department last night, where CT scan revealed evidence of osteomyelitis and cellulitis was noted not to improve significantly by her report. She is admitted for IV antibiotics and podiatry consultation for possible debridement versus toe amputation. Hospital Course Hospital Course: Patient was admitted and placed on broad spectrum antibiotics. On July 29 she underwent distal left send toe amputation. If was felt that this cured her infection. On July 30 the wound was inspected by podiatry service and she patient was felt appropriate for discharge. She will return for outpatient dressing changes. Objective Vital signs: Temp Pulse Resp BP Pulse Ox 98.8 F 89 16 126/43 96 07/30/17 04:00 07/30/17 05:54 07/30/17 04:00 07/30/17 04:00 07/30/17 05:55 Results Labs on day of discharge: Labs from last 24 hours 07/30/17 07/30/17 07/30/17 06:23 06:23 06:23 WBC 6.0 RBC 3.93 L Hgb 11.6 L Hct 36.4 L MCV 92.6 MCH 29.6 MCHC 32.0 RDW 14.3 Plt Count 213 MPV 9.1 Neut % (Auto) 62.1 Lymph % (Auto) 25.4 [place] % (Auto) 5.2 Eos % (Auto) 6.7 Baso % (Auto) 0.6 Neut # (Auto) 3.7 Lymph # (Auto) 1.5 [place] # (Auto) 0.3 Eos # (Auto) 0.4 Baso # (Auto) 0.0 ESR 27 POC Glucose C-Reactive Protein 1.4 H D 07/29/17 07/29/17 07/29/17 21:21 16:32 10:33 WBC RBC Hgb Hct MCV MCH MCHC RDW Plt Count MPV Neut % (Auto) Lymph % (Auto) [place] % (Auto) Eos % (Auto) Baso % (Auto) Neut # (Auto) Lymph # (Auto) [place] # (Auto) Eos # (Auto) Baso # (Auto) ESR POC Glucose 215 H 303 H* 188 H C-Reactive Protein 07/29/17 07/29/17 09:09 07:36 WBC RBC Hgb Hct MCV MCH MCHC RDW Plt Count MPV Neut % (Auto) Lymph % (Auto) [place] % (Auto) Eos % (Auto) Baso % (Auto) Neut # (Auto) Lymph # (Auto) [place] # (Auto) Eos # (Auto) Baso # (Auto) ESR POC Glucose 196 H 255 H C-Reactive Protein Preliminary micro results at discharge 07/28/17 00:45 Blood Culture - Preliminary Blood NO GROWTH AFTER 48 HOURS 07/28/17 00:45 Blood Culture - Preliminary Blood Gram Positive Bacilli DS: Diagnosis - Discharge Diagnosis (1) Peripheral arterial disease Status: Acute (2) Osteomyelitis of ankle and foot Status: Acute (3) Diabetes Status: Chronic (4) Tobacco use disorder, continuous Status: Acute (5) Cellulitis Status: Acute Discharge Plan - Patient Discharge Instructions ACTIVITY: Continue current activity DIET: continue same diet Additional Instructions: STOP SMOKING Patient Instructions: Osteomyelitis, Type 2 Diabetes, Nicotine Addiction, Peripheral Artery Disease, How to Quit Tobacco Products - Follow up Plan Follow up with: Sulma Esquivel DPM [Physician] - 2 weeks Disposition: Home, Self-Fdc Medications: Home Medications Medication Instructions Recorded Confirmed Type atorvastatin 80 mg tablet 80 mg PO DAILY 30 Days #30 05/24/17 07/28/17 History clopidogrel 75 mg tablet 75 mg PO DAILY 30 Days #30 05/24/17 07/28/17 History gabapentin 600 mg tablet 600 mg PO TID 05/24/17 07/28/17 History omeprazole 20 mg capsule,delayed 20 mg PO DAILY 30 Days #30 05/24/17 07/28/17 History release ropinirole 1 mg tablet 1 mg PO HS 30 Days #30 05/24/17 07/28/17 History valsartan 160 mg tablet 160 mg PO DAILY 30 Days #30 05/24/17 07/28/17 History apixaban 5 mg tablet 5 mg PO BID 07/19/17 07/28/17 History Albuterol Sulfate [Albuterol HFA 1 puff INHALATION BID 07/28/17 07/28/17 History Inhaler] dilTIAZem HCl [Cardizem Cd] 120 mg PO DAILY 07/28/17 07/28/17 History levoFLOXacin [Levaquin 500mg 500 mg PO DAILY 07/28/17 07/28/17 History tab] Prescriptions/Medication Reconciliation: Continue omeprazole 20 mg capsule,delayed release 20 mg PO DAILY 30 Days #30 clopidogrel 75 mg tablet 75 mg PO DAILY 30 Days #30 atorvastatin 80 mg tablet 80 mg PO DAILY 30 Days #30 gabapentin 600 mg tablet 600 mg PO TID apixaban 5 mg tablet 5 mg PO BID valsartan 160 mg tablet 160 mg PO DAILY 30 Days #30 ropinirole 1 mg tablet 1 mg PO HS 30 Days #30 dilTIAZem HCl [Cardizem Cd] 120 mg PO DAILY levoFLOXacin [Levaquin 500mg tab] 500 mg PO DAILY Albuterol Sulfate [Albuterol HFA Inhaler] 1 puff INHALATION BID
== END 2017-07-30 10:30 | disposition home or self-care (01) ==
LOC: ER 00:02 → 2ND 00:02 → OBSVTOIN 02:55 → 2ND 02:58
PROVIDERS: ADMIT Internal Medicine Adolescent Medicine; ATTEND Family Medicine

== ENCOUNTER 2017-08-02 12:45 | Outpatient (CLI) | payer MEDICARE, MEDICAID, SELFPAY ==
--- NOTE | 2017-08-02 15:20 | PC.NURSE ---
1300 - PT S/P LEFT FOOT 2ND METATARSAL AMPUTATION. REMOVED DRESSING. NO DRAINAGE NOTED, ONLY STAIN FROM BETADINE. NO FOUL ODOR DETECTED. SUTURES INTACT AND SURROUNDING SKIN PINK. NO S&S OF INFECTION NOTED. CLEANED WITH BETADINE, COVERED WITH 2 DRY 4X4'S, CORDELIA WRAP, AND SANGITA WRAP. PT HAS F/U APPT WITH DR SHEN'S OFFICE ON 08/06/17 TO RE-EVALUATE.
== END 2017-08-02 13:20 | disposition home or self-care (01) ==
LOC: INF 12:51
PROVIDERS: Family Provider Family Medicine; PCP Family Medicine; Visit Provider Orthopaedic Surgery
DX: Z89.422 Acquired absence of other left toe(s) (principal); Z48.01 Encounter for change or removal of surgical wound dressing
CPT/HCPCS: G0463

== ENCOUNTER → 2017-08-10 11:49 | Outpatient (POV) | payer MEDICARE, MEDICAID, SELFPAY | PROVIDERS: Family Provider Family Medicine; PCP Family Medicine; Visit Provider Podiatrist | DX: Z00.00 Encounter for general adult medical examination without abnormal findings (principal) ==

== ENCOUNTER → 2017-08-31 09:58 | Outpatient (CLI) | payer MEDICARE, MEDICAID, SELFPAY ==
[2017-08-31 10:12] LABS: Basophils % 0.7 % (0.1-2.0); Eosinophils # 0.4 K/mm3 (0.0-0.4); Eosinophils % 6.7 % (0.1-12.0); Hematocrit 40.3 % (37.0-47.0); Hemoglobin 12.4 g/dL (12.2-16.2); Lymphocytes # 1.8 K/mm3 (0.7-4.5); Lymphocytes % 33.8 K/mm3 (10-50); Mean Corpuscular HGB Conc 30.8 g/dL (31.8-35.4); Mean Corpuscular Hemoglobin 28.3 pg (27.0-31.2); Mean Corpuscular Volume 91.7 fl (81-99); Mean Platelet Volume 9.8 fl (7.4-10.4); Monocytes # 0.4 K/mm3 (0.1-1.0); Monocytes % 6.6 % (1.7-9.3); Neutrophils # 2.8 K/mm3 (1.8-7.8); Neutrophils % 52.2 % (37.0-80.0); Platelet Count 224 K/mm3 (142-424); Red Blood Count 4.39 M/mm3 (4.20-5.40); Red Cell Distribution Width 14.3 % (11.5-17.5); White Blood Count 5.4 K/mm3 (4.8-10.8)
== END ==
PROVIDERS: Family Provider Family Medicine; PCP Family Medicine; Visit Provider Physician Assistant
DX: E10.8 Type 1 diabetes mellitus with unspecified complications (principal); K92.1 Melena
CPT/HCPCS: 36415; 85025

== ENCOUNTER → 2017-09-12 08:24 | Outpatient (CLI) | payer MEDICARE, MEDICAID, SELFPAY ==
--- NOTE | 2017-09-12 08:25 | XR_ITS ---
XR foot wt bearing LT 3V HISTORY: Follow-up surgery ITS.REASON: Post-Op Views ORDERING PHYSICIAN: Sulma Esquivel DPM PATIENT AGE: 66 years COMPARISON: 07/29/2017 FINDINGS: There has been prior amputation at the metatarsophalangeal joint of the first and second toes. There is some minimal fragmentation of the distal aspect of the first metatarsal similar to an older exam of 05/24/2017. The surgery site at the second distal metatarsal is unremarkable. There is generalized osteopenia with calcaneal spur at 9 mm with some calcification along the plantar fascia posteriorly. IMPRESSION: Status post amputation at the first and second distal metatarsals as described above
[2017-09-12 15:09] LABS: Basophils % 0.7 % (0.1-2.0); Eosinophils # 0.3 K/mm3 (0.0-0.4); Eosinophils % 3.9 % (0.1-12.0); Hematocrit 41.3 % (37.0-47.0); Hemoglobin 12.8 g/dL (12.2-16.2); Lymphocytes # 1.4 K/mm3 (0.7-4.5); Lymphocytes % 21.5 K/mm3 (10-50); Mean Corpuscular Hemoglobin 28.1 pg (27.0-31.2); Mean Corpuscular Volume 90.6 fl (81-99); Mean Platelet Volume 9.1 fl (7.4-10.4); Monocytes # 0.3 K/mm3 (0.1-1.0); Monocytes % 4.4 % (1.7-9.3); Neutrophils # 4.4 K/mm3 (1.8-7.8); Neutrophils % 69.5 % (37.0-80.0); Platelet Count 237 K/mm3 (142-424); Red Blood Count 4.55 M/mm3 (4.20-5.40); White Blood Count 6.3 K/mm3 (4.8-10.8)
[2017-09-12 15:53] LABS: Erythrocyte Sedimentation Rate 22 mm/hr (0-30)
[2017-09-12 19:24] LABS: Alanine Aminotransferase 16 U/L (12-78); Albumin Level 3.3 gm/dL (3.4-5.0); Albumin/Globulin Ratio 1.1 (1.1-1.8); Alkaline Phosphatase 110 U/L (46-116); Anion Gap 14.7 mEq/L (5-15); Aspartate Amino Transferase 15 U/L (15-37); Bilirubin,Total 0.5 mg/dL (0.2-1.0); Blood Urea Nitrogen 13 mg/dL (7-18); Calcium 8.9 mg/dL (8.5-10.1); Carbon Dioxide 27 mmol/L (21.0-32.0); Chloride 100 mmol/L (98-107); Creatinine,Serum 0.81 mg/dL (0.55-1.02); Estimated Glomerular Filt Rate 70 ml/min (>60); GFR (African American) 85 ML/MIN (>60); Globulin 2.9 gm/dl (1.3-3.2); Potassium 4.7 mmoL/L (3.5-5.1); Sodium 137 mmol/L (136-145); Total Protein,Serum 6.2 gm/dL (6.4-8.2)
[2017-09-12 19:54] LABS: C-Reactive Protein < 0.2 mg/L (0.0-0.9); Glucose 408 mg/dL (74-106)
== END ==
PROVIDERS: Visit Provider Podiatrist
DX: M86.9 Osteomyelitis, unspecified (principal); E11.9 Type 2 diabetes mellitus without complications
CPT/HCPCS: 36415; 73630; 80053; 83036; 85025; 85651; 86140

== ENCOUNTER → 2017-09-17 13:57 | Outpatient (CLI) | payer MEDICARE, MEDICAID, SELFPAY ==
--- NOTE | 2017-09-17 14:06 | XR_ITS ---
XR chest 2V HISTORY: ITS.REASON: HTN, SMOKER ORDERING PHYSICIAN: Sulma Esquivel DPM PATIENT AGE: 66 years COMPARISON: 07/28/2017 FINDINGS: There is borderline cardiomegaly without failure. Lungs are clear bilaterally. There is some nodularity noted in the right lung base overlying the sixth rib anteriorly and may be due to summation artifact from overlying vessels and ribs as the patient is slightly rotated. No effusions or infiltrates. Degenerative changes are present in the thoracic spine. IMPRESSION: 1. No acute finding. 2. Nodularity in the right lung base which may be due to summation artifact and may be confirmed with follow-up
== END ==
PROVIDERS: PCP Family Medicine; Visit Provider Podiatrist
DX: Z01.818 Encounter for other preprocedural examination (principal); M86.9 Osteomyelitis, unspecified; L03.90 Cellulitis, unspecified; I96 Gangrene, not elsewhere classified
CPT/HCPCS: 71046; 93005

== ENCOUNTER → 2017-09-18 10:38 | Outpatient (REF) | payer MEDICARE, MEDICAID, SELFPAY | LOC: LAB 10:38 | PROVIDERS: Visit Provider Podiatrist | DX: E11.9 Type 2 diabetes mellitus without complications (principal); Z98.890 Other specified postprocedural states ==

== ENCOUNTER 2017-09-19 11:05 | Outpatient (CLI) | payer MEDICARE, MEDICAID, SELFPAY ==
[2017-09-19 11:11] VITALS: BMI 24.3
[2017-09-19 11:29] VITALS: BP 119/54; PULSE 78; RESP 18; TEMP 36.4; O2SAT 96
[2017-09-19 11:35] LABS: Creatinine Clearance Estimated 48 mL/min (0-300); Creatinine,Serum 1.06 mg/dL (0.55-1.02); Estimated Glomerular Filt Rate 52 ml/min (>60); GFR (African American) 62 ML/MIN (>60)
[2017-09-19 11:50] VITALS: BP 131/57; PULSE 91; RESP 16; TEMP 36.4; O2SAT 97
[2017-09-19 12:20] VITALS: BP 128/58; PULSE 90; RESP 18; O2SAT 97
[2017-09-19 12:50] VITALS: BP 119/76; PULSE 82; RESP 18; TEMP 36.6; O2SAT 96
[2017-09-19 13:20] VITALS: BP 122/68; PULSE 85; RESP 18; TEMP 36.6; O2SAT 96
[2017-09-19 13:55] VITALS: BP 125/69; PULSE 79; RESP 18; TEMP 36.6; O2SAT 97
== END 2017-09-19 14:00 | disposition home or self-care (01) ==
LOC: INF 11:05
PROVIDERS: Family Provider Family Medicine; PCP Family Medicine; Visit Provider Podiatrist
DX: M86.9 Osteomyelitis, unspecified (principal)
CPT/HCPCS: 82565; 96365; 96366; J3370

== ENCOUNTER 2017-09-20 11:15 | Outpatient (CLI) | payer MEDICARE, MEDICAID, SELFPAY ==
[2017-09-20 11:45] VITALS: BP 101/43; PULSE 71; RESP 18; TEMP 36.8
[2017-09-20 12:15] VITALS: BP 119/47; PULSE 83; RESP 18
[2017-09-20 12:45] VITALS: BP 122/54; PULSE 86; RESP 16
[2017-09-20 13:15] VITALS: BP 124/51; PULSE 84; RESP 16
[2017-09-20 13:25] VITALS: BP 117/49; PULSE 84; RESP 16; TEMP 37.2
== END 2017-09-20 13:35 | disposition home or self-care (01) ==
LOC: INF 11:32
PROVIDERS: Family Provider Family Medicine; PCP Family Medicine; Visit Provider Internal Medicine Adolescent Medicine
DX: M86.9 Osteomyelitis, unspecified (principal); I96 Gangrene, not elsewhere classified; E10.8 Type 1 diabetes mellitus with unspecified complications
CPT/HCPCS: 96365; 96366; J3370

== ENCOUNTER 2017-09-21 11:20 | Outpatient (CLI) | payer MEDICARE, MEDICAID, SELFPAY ==
[2017-09-21 11:23] VITALS: BMI 23.9
[2017-09-21 12:11] LABS: Anion Gap 11.8 mEq/L (5-15); Blood Urea Nitrogen 15 mg/dL (7-18); Calcium 7.8 mg/dL (8.5-10.1); Carbon Dioxide 25 mmol/L (21.0-32.0); Chloride 102 mmol/L (98-107); Creatinine Clearance Estimated 51 mL/min (0-300); Creatinine,Serum 0.83 mg/dL (0.55-1.02); Estimated Glomerular Filt Rate 68 ml/min (>60); GFR (African American) 83 ML/MIN (>60); Glucose 144 mg/dL (74-106); Potassium 3.8 mmoL/L (3.5-5.1); Sodium 135 mmol/L (136-145)
[2017-09-21 12:13] LABS: Vancomycin,Trough 7.7 mcg/ml (10.0-20.0)
--- NOTE | 2017-09-21 12:23 | P.CONPHA_ITS ---
- Pharmacy Consult Date: 09/21/17 Time: 12:22 Referring provider: DR. SHEN Reason for Consult:: VANCOMYCIN TROUGH LEVEL Allergies and ADEs:: Allergies Allergy/AdvReac Type Severity Reaction Status Date / Time ibuprofen [IBUPROFEN] Allergy Severe I-HIVES Verified 09/17/17 16:19 aspirin [ASPIRIN] Allergy Unknown Verified 09/17/17 16:19 zolpidem [From AMBIEN] Allergy Unknown Verified 09/17/17 16:19 Home Medications:: Home Medications Medication Instructions Recorded Confirmed Type atorvastatin 80 mg tablet 80 mg PO DAILY 30 Days #30 05/24/17 09/20/17 History clopidogrel 75 mg tablet 75 mg PO DAILY 30 Days #30 05/24/17 09/20/17 History gabapentin 600 mg tablet 600 mg PO TID 05/24/17 09/20/17 History omeprazole 20 mg capsule,delayed 20 mg PO DAILY 30 Days #30 05/24/17 09/20/17 History release ropinirole 1 mg tablet 1 mg PO HS 30 Days #30 05/24/17 09/20/17 History valsartan 160 mg tablet 160 mg PO DAILY 30 Days #30 05/24/17 09/20/17 History apixaban 5 mg tablet 5 mg PO BID 07/19/17 09/20/17 History Albuterol Sulfate [Albuterol HFA 1 puff INHALATION BID 07/28/17 09/20/17 History Inhaler] dilTIAZem HCl [Cardizem Cd] 120 mg PO DAILY 07/28/17 09/20/17 History Insulin Aspart [Novolog] 5 units SQ TID 09/17/17 09/20/17 History Insulin Degludec [Tresiba 20 units SQ HS 09/17/17 09/20/17 History Flextouch U-200] Hydrocodone/Acetaminophen 1 each PO Q6HP PRN 09/20/17 09/20/17 History [Hydrocodone-Acetamin 5-325 mg] Height: 1.59 m Weight: 60.328 kg Laboratory Results:: Laboratory Results - last 24 hr 09/21/17 11:25: Sodium 135 L, Potassium 3.8, Chloride 102, Carbon Dioxide 25, Anion Gap 11.8, BUN 15, Creatinine 0.83 D, Estimated Creat Clear 51, Estimated GFR 68, Est GFR ( Amer) 83 D, Glucose 144 H, Calcium 7.8 L, Vancomycin Trough 7.7 L Medical History: Reports:: Asthma, Atrial Fibrillation, Congestive Heart Failure , Chronic Obstructive Pulmonary Disease (COPD), Diabetes Mellitus Type 2, Gastroesophageal Reflux Disease(GERD), Hyperlipidemia, Hypertension, MRSA, Peripheral Artery Disease, Peripheral Vascular Disease Denies:: Cancer, Seizures Assessment and Plan - Assessment and plan all Dx Assessment and Plan for all problems:: BASED ON PATIENT FACTORS AND VANCOMYCIN TROUGH LEVEL, RECOMMEND INCREASING DOSE TO VANCOMYCIN 1250 MG IV Q24H. PHARMACY WILL CONTINUE TO MONITOR DAILY AND ADJUST APPROPRIATE.
[2017-09-21 12:45] VITALS: BP 135/62; PULSE 90; RESP 18; TEMP 37.2; O2SAT 94
[2017-09-21 13:15] VITALS: BP 102/41; PULSE 81; RESP 18
[2017-09-21 13:45] VITALS: BP 104/45; PULSE 83; RESP 18
[2017-09-21 14:15] VITALS: BP 106/43; PULSE 82; RESP 18
[2017-09-21 14:45] VITALS: BP 108/42; PULSE 84; RESP 18
== END 2017-09-21 14:45 | disposition home or self-care (01) ==
LOC: INF 11:55
PROVIDERS: Family Provider Family Medicine; PCP Family Medicine; Visit Provider Internal Medicine Adolescent Medicine
DX: M86.9 Osteomyelitis, unspecified (principal); I96 Gangrene, not elsewhere classified; E10.8 Type 1 diabetes mellitus with unspecified complications
CPT/HCPCS: 80048; 80202; 96365; 96366; J3370

== ENCOUNTER 2017-09-22 11:08 | Outpatient (CLI) | payer MEDICARE, MEDICAID, SELFPAY ==
[2017-09-22 11:20] VITALS: BP 101/47; BP 106/54; PULSE 76; PULSE 79; RESP 16; TEMP 37; TEMP 37.1; O2SAT 94
[2017-09-22 11:26] VITALS: BMI 24.3
--- NOTE | 2017-09-22 13:32 | PC.NURSE ---
PATIENT PROVIDED WITH A LUNCH TRAY. AWAITING FAMILY TO COME PICK HER UP.
== END 2017-09-22 13:31 | disposition home or self-care (01) ==
LOC: INF 11:08
PROVIDERS: Family Provider Family Medicine; PCP Family Medicine; Visit Provider Internal Medicine Adolescent Medicine
DX: M86.9 Osteomyelitis, unspecified (principal); I96 Gangrene, not elsewhere classified; E10.8 Type 1 diabetes mellitus with unspecified complications
CPT/HCPCS: 96365; 96366; J3370

== ENCOUNTER 2017-09-23 11:26 | Outpatient (CLI) | payer MEDICARE, MEDICAID, SELFPAY ==
[2017-09-23 12:03] VITALS: BP 107/47; PULSE 71; RESP 18; TEMP 37.1; O2SAT 94; BMI 24.5
== END 2017-09-23 14:28 | disposition home or self-care (01) ==
PROVIDERS: Family Provider Family Medicine; PCP Family Medicine; Visit Provider Internal Medicine Adolescent Medicine
DX: M86.9 Osteomyelitis, unspecified (principal); I96 Gangrene, not elsewhere classified; E10.8 Type 1 diabetes mellitus with unspecified complications
CPT/HCPCS: 96365; 96366; J3370

== ENCOUNTER 2017-09-24 11:51 | Outpatient (CLI) | payer MEDICARE, MEDICAID, SELFPAY ==
[2017-09-24 12:02] VITALS: BP 125/47; PULSE 77; RESP 18; TEMP 36.3; O2SAT 98
[2017-09-24 12:30] VITALS: BP 122/59; PULSE 79; RESP 18; TEMP 36.4; O2SAT 98
[2017-09-24 12:55] VITALS: BP 133/55; PULSE 78; RESP 18; TEMP 36.7; O2SAT 97
[2017-09-24 13:25] VITALS: BP 125/57; PULSE 75; RESP 18; TEMP 36.6; O2SAT 97
[2017-09-24 13:55] VITALS: BP 118/47; PULSE 74; RESP 18
[2017-09-24 14:15] VITALS: BP 124/50; PULSE 72; RESP 18; TEMP 36.6; O2SAT 98
== END 2017-09-24 14:15 | disposition home or self-care (01) ==
LOC: INF 11:51
PROVIDERS: Family Provider Family Medicine; PCP Family Medicine; Visit Provider Internal Medicine Adolescent Medicine
DX: M86.9 Osteomyelitis, unspecified (principal); I96 Gangrene, not elsewhere classified; E10.8 Type 1 diabetes mellitus with unspecified complications
CPT/HCPCS: 96365; 96366; J3370

== ENCOUNTER 2017-09-25 11:30 | Outpatient (CLI) | payer MEDICARE, MEDICAID, SELFPAY ==
[2017-09-25 11:28] VITALS: BMI 24.3
[2017-09-25 11:59] LABS: Anion Gap 8.6 mEq/L (5-15); Blood Urea Nitrogen 10 mg/dL (7-18); Carbon Dioxide 29 mmol/L (21.0-32.0); Chloride 103 mmol/L (98-107); Creatinine Clearance Estimated 51 mL/min (0-300); Estimated Glomerular Filt Rate 71 ml/min (>60); GFR (African American) 86 ML/MIN (>60); Glucose 263 mg/dL (74-106); Potassium 4.6 mmoL/L (3.5-5.1); Sodium 136 mmol/L (136-145)
[2017-09-25 12:20] VITALS: BP 130/67; PULSE 68; RESP 20; TEMP 36.9; O2SAT 98
[2017-09-25 13:00] VITALS: BP 138/65; PULSE 66; RESP 20; TEMP 36.9; O2SAT 98
[2017-09-25 13:30] VITALS: BP 134/66; PULSE 68; RESP 20; TEMP 36.9; O2SAT 97
[2017-09-25 14:00] VITALS: BP 135/70; PULSE 68; RESP 22; TEMP 36.9; O2SAT 98
[2017-09-25 14:25] VITALS: BP 126/57; PULSE 68; RESP 20; TEMP 36.9; O2SAT 96
== END 2017-09-25 14:40 | disposition home or self-care (01) ==
LOC: INF 11:30
PROVIDERS: Family Provider Family Medicine; PCP Family Medicine; Visit Provider Internal Medicine Adolescent Medicine
DX: M86.9 Osteomyelitis, unspecified (principal); I96 Gangrene, not elsewhere classified; E10.8 Type 1 diabetes mellitus with unspecified complications
CPT/HCPCS: 80048; 80202; 96365; 96366; J3370

== ENCOUNTER 2017-09-26 11:08 | Outpatient (CLI) | payer MEDICARE, MEDICAID, SELFPAY ==
[2017-09-26 11:44] VITALS: BP 112/49; PULSE 72; RESP 18; TEMP 36.6; O2SAT 96
[2017-09-26 12:05] VITALS: BP 123/74; PULSE 79; RESP 18; TEMP 36.4; O2SAT 96
[2017-09-26 12:35] VITALS: BP 118/68; PULSE 80; RESP 16; TEMP 36.6; O2SAT 96
[2017-09-26 13:05] VITALS: BP 124/76; PULSE 79; RESP 18; TEMP 36.6; O2SAT 97
[2017-09-26 13:35] VITALS: BP 123/74; PULSE 75; RESP 20; TEMP 36.6; O2SAT 95
[2017-09-26 13:55] VITALS: BP 116/69; PULSE 80; RESP 18; TEMP 36.6; O2SAT 96
== END 2017-09-26 14:00 | disposition home or self-care (01) ==
LOC: INF 11:25
PROVIDERS: Family Provider Family Medicine; PCP Family Medicine; Visit Provider Internal Medicine Adolescent Medicine
DX: M86.9 Osteomyelitis, unspecified (principal); I96 Gangrene, not elsewhere classified; E10.8 Type 1 diabetes mellitus with unspecified complications
CPT/HCPCS: 96365; 96366; J3370

== ENCOUNTER 2017-09-27 11:19 | Outpatient (CLI) | payer MEDICARE, MEDICAID, SELFPAY ==
[2017-09-27 11:50] VITALS: BP 110/63; PULSE 70; RESP 18; TEMP 36.7; O2SAT 94
[2017-09-27 12:20] VITALS: BP 106/67; PULSE 72; RESP 18; O2SAT 95
[2017-09-27 12:50] VITALS: BP 108/66; PULSE 71; RESP 18; O2SAT 95
[2017-09-27 13:20] VITALS: BP 112/64; PULSE 76; RESP 18; O2SAT 95
[2017-09-27 13:50] VITALS: BP 110/61; PULSE 74; RESP 18; O2SAT 96
[2017-09-27 14:05] VITALS: BP 107/62; PULSE 75; RESP 18; O2SAT 95
== END 2017-09-27 14:10 | disposition home or self-care (01) ==
LOC: INF 11:19
PROVIDERS: Family Provider Family Medicine; PCP Family Medicine; Visit Provider Internal Medicine Adolescent Medicine
DX: M86.9 Osteomyelitis, unspecified (principal); I96 Gangrene, not elsewhere classified; E10.8 Type 1 diabetes mellitus with unspecified complications
CPT/HCPCS: 96365; 96366; J3370

== ENCOUNTER 2017-09-28 11:05 | Outpatient (CLI) | payer MEDICARE, MEDICAID, SELFPAY ==
[2017-09-28 11:21] VITALS: BP 132/58; PULSE 75; RESP 18; TEMP 36.6; O2SAT 96
[2017-09-28 11:51] VITALS: BP 129/59; PULSE 78; RESP 18; O2SAT 97
[2017-09-28 12:21] VITALS: BP 131/54; PULSE 76; RESP 18; O2SAT 97
[2017-09-28 12:51] VITALS: BP 134/57; PULSE 79; RESP 18; O2SAT 97
[2017-09-28 13:28] VITALS: BP 129/59; PULSE 76; RESP 18; O2SAT 96
== END 2017-09-28 13:30 | disposition home or self-care (01) ==
LOC: INF 11:13
PROVIDERS: Family Provider Family Medicine; PCP Family Medicine; Visit Provider Internal Medicine Adolescent Medicine
DX: M86.9 Osteomyelitis, unspecified (principal); I96 Gangrene, not elsewhere classified; E10.8 Type 1 diabetes mellitus with unspecified complications
CPT/HCPCS: 96365; 96366; J3370

== ENCOUNTER 2017-09-29 11:01 | Outpatient (CLI) | payer MEDICARE, MEDICAID, SELFPAY ==
[2017-09-29 11:20] VITALS: BP 122/50; PULSE 79; RESP 18; TEMP 36.3; O2SAT 97; BMI 23.9
[2017-09-29 14:10] VITALS: BP 189/87; PULSE 58; RESP 18; TEMP 36.6; O2SAT 97
== END 2017-09-29 14:10 | disposition home or self-care (01) ==
LOC: INF 11:02
PROVIDERS: Family Provider Family Medicine; PCP Family Medicine; Visit Provider Internal Medicine Adolescent Medicine
DX: M86.9 Osteomyelitis, unspecified (principal); I96 Gangrene, not elsewhere classified; E10.8 Type 1 diabetes mellitus with unspecified complications
CPT/HCPCS: 96365; 96366; J3370

== ENCOUNTER 2017-09-30 11:41 | Outpatient (CLI) | payer MEDICARE, MEDICAID, SELFPAY ==
[2017-09-30 11:51] VITALS: BP 112/48; PULSE 61; RESP 18; TEMP 36.8; O2SAT 98; BMI 23.9
[2017-09-30 14:10] VITALS: BP 117/47; PULSE 75; RESP 18; TEMP 36.5; O2SAT 92
== END 2017-09-30 14:11 | disposition home or self-care (01) ==
LOC: INF 11:42
PROVIDERS: Family Provider Family Medicine; PCP Family Medicine; Visit Provider Internal Medicine Adolescent Medicine
DX: M86.9 Osteomyelitis, unspecified (principal); I96 Gangrene, not elsewhere classified; E10.8 Type 1 diabetes mellitus with unspecified complications
CPT/HCPCS: 96365; 96366; J3370

== ENCOUNTER 2017-10-01 09:48 | Outpatient (CLI) | payer MEDICARE, MEDICAID, SELFPAY ==
[2017-10-01 09:49] VITALS: BMI 24.3
[2017-10-01 09:51] VITALS: BMI 24.3
[2017-10-01 10:50] LABS: Anion Gap 10.3 mEq/L (5-15); Blood Urea Nitrogen 9 mg/dL (7-18); Calcium 8.2 mg/dL (8.5-10.1); Carbon Dioxide 27 mmol/L (21.0-32.0); Chloride 103 mmol/L (98-107); Creatinine Clearance Estimated 51 mL/min (0-300); Creatinine,Serum 0.76 mg/dL (0.55-1.02); Estimated Glomerular Filt Rate 76 ml/min (>60); GFR (African American) 92 ML/MIN (>60); Glucose 270 mg/dL (74-106); Sodium 136 mmol/L (136-145); Vancomycin,Trough 14.7 mcg/ml (10.0-20.0)
[2017-10-01 10:54] LABS: Potassium 4.3 mmoL/L (3.5-5.1)
--- NOTE | 2017-10-01 11:07 | PC.NURSE ---
10/01/17 1100 Notified pharmacy pt's vanc trough 14.7. Awaiting new orders regarding vancomycin dosing
[2017-10-01 11:21] VITALS: BP 144/58; PULSE 71; RESP 18; TEMP 36.6; O2SAT 95
[2017-10-01 11:57] VITALS: BP 133/76; PULSE 72; RESP 18; TEMP 36.6; O2SAT 96
[2017-10-01 12:25] VITALS: BP 132/74; PULSE 74; RESP 16; TEMP 36.6; O2SAT 95
[2017-10-01 12:50] VITALS: BP 135/78; PULSE 82; RESP 18; TEMP 36.5; O2SAT 97
[2017-10-01 13:10] VITALS: BP 126/68; PULSE 79; RESP 18
[2017-10-01 13:40] VITALS: BP 130/68; PULSE 83; RESP 16; TEMP 36.6; O2SAT 96
== END 2017-10-01 13:45 | disposition home or self-care (01) ==
LOC: INF 09:48
PROVIDERS: Family Provider Family Medicine; PCP Family Medicine; Visit Provider Internal Medicine Adolescent Medicine
DX: M86.9 Osteomyelitis, unspecified (principal); I96 Gangrene, not elsewhere classified; E10.8 Type 1 diabetes mellitus with unspecified complications
CPT/HCPCS: 80048; 80202; 96365; 96366; J3370

== ENCOUNTER 2017-10-02 11:20 | Outpatient (CLI) | payer MEDICARE, MEDICAID, SELFPAY ==
[2017-10-02 11:44] VITALS: BP 97/48; PULSE 78; RESP 18; TEMP 36.6; O2SAT 96
[2017-10-02 12:44] VITALS: BP 102/69; PULSE 82; RESP 18; TEMP 36.6; O2SAT 95
[2017-10-02 13:10] VITALS: BP 110/67; PULSE 68; RESP 16; TEMP 36.6; O2SAT 97
[2017-10-02 13:40] VITALS: BP 112/74; PULSE 75; RESP 18
[2017-10-02 14:10] VITALS: BP 109/69; PULSE 76; RESP 18; TEMP 36.5; O2SAT 96
[2017-10-02 14:15] VITALS: BP 102/64; PULSE 72; RESP 18; TEMP 36.6; O2SAT 97
== END 2017-10-02 14:20 | disposition home or self-care (01) ==
LOC: INF 11:40
PROVIDERS: Family Provider Family Medicine; PCP Family Medicine; Visit Provider Internal Medicine Adolescent Medicine
DX: M86.9 Osteomyelitis, unspecified (principal); I96 Gangrene, not elsewhere classified; E10.8 Type 1 diabetes mellitus with unspecified complications
CPT/HCPCS: 96365; 96366; J3370

== ENCOUNTER → 2017-10-03 11:12 | Outpatient (CLI) | payer MEDICARE, MEDICAID, SELFPAY ==
[2017-10-03 11:12] VITALS: BP 128/60; PULSE 69; RESP 18; TEMP 36.6; O2SAT 100
[2017-10-03 11:16] VITALS: BP 108/63; BP 128/60; PULSE 68; PULSE 69; RESP 18; TEMP 36.6; O2SAT 100; BMI 24.3
== END ==
PROVIDERS: Family Provider Family Medicine; PCP Family Medicine; Visit Provider Internal Medicine Adolescent Medicine
DX: M86.9 Osteomyelitis, unspecified (principal); I96 Gangrene, not elsewhere classified; E10.8 Type 1 diabetes mellitus with unspecified complications
CPT/HCPCS: 96365; 96366; J3370

== ENCOUNTER 2017-10-04 11:19 | Outpatient (CLI) | payer MEDICARE, MEDICAID, SELFPAY ==
[2017-10-04 11:50] VITALS: BP 123/50; PULSE 73; RESP 18; TEMP 37.1; O2SAT 95
[2017-10-04 13:50] VITALS: BP 123/48; PULSE 75; RESP 18
== END 2017-10-04 14:10 | disposition home or self-care (01) ==
LOC: INF 11:19
PROVIDERS: Family Provider Family Medicine; PCP Family Medicine; Visit Provider Internal Medicine Adolescent Medicine
DX: M86.9 Osteomyelitis, unspecified (principal); I96 Gangrene, not elsewhere classified; I73.9 Peripheral vascular disease, unspecified
CPT/HCPCS: 96365; 96366; J3370

== ENCOUNTER 2017-10-05 11:10 | Outpatient (CLI) | payer MEDICARE, MEDICAID, SELFPAY ==
--- NOTE | 2017-10-05 | XR_ITS ---
XR foot wt bearing LT 3V HISTORY: Follow-up transmetatarsal indication ITS.REASON: S/P TRANSMETATARSAL AMPUTATION ORDERING PHYSICIAN: Mario Melendez MD PATIENT AGE: 66 years COMPARISON: 09/18/2017 FINDINGS: Overall no change status post transmetatarsal dictation. Skin clips are still in place. No erosive changes of the metatarsal stumps.. No soft tissue gas IMPRESSION: Overall no change status post transmetatarsal amputation
[2017-10-05 11:28] VITALS: BMI 24.3
[2017-10-05 12:15] VITALS: BP 131/47; PULSE 73; RESP 18; TEMP 36.9
[2017-10-05 12:20] LABS: Basophils % 0.6 % (0.1-2.0); Eosinophils # 0.3 K/mm3 (0.0-0.4); Hematocrit 34.9 % (37.0-47.0); Hemoglobin 11.1 g/dL (12.2-16.2); Lymphocytes # 1.5 K/mm3 (0.7-4.5); Lymphocytes % 23.8 K/mm3 (10-50); Mean Corpuscular HGB Conc 31.9 g/dL (31.8-35.4); Mean Corpuscular Hemoglobin 27.7 pg (27.0-31.2); Mean Corpuscular Volume 86.8 fl (81-99); Mean Platelet Volume 7.5 fl (7.4-10.4); Monocytes # 0.3 K/mm3 (0.1-1.0); Monocytes % 4.8 % (1.7-9.3); Neutrophils # 4.4 K/mm3 (1.8-7.8); Neutrophils % 66.8 % (37.0-80.0); Platelet Count 342 K/mm3 (142-424); Red Blood Count 4.02 M/mm3 (4.20-5.40); Red Cell Distribution Width 13.7 % (11.5-17.5); White Blood Count 6.5 K/mm3 (4.8-10.8)
[2017-10-05 12:40] LABS: C-Reactive Protein 0.2 mg/L (0.0-0.9)
[2017-10-05 12:45] VITALS: BP 119/51; PULSE 72; RESP 18
[2017-10-05 13:00] LABS: Erythrocyte Sedimentation Rate 41 mm/hr (0-30)
[2017-10-05 13:15] VITALS: BP 133/66; PULSE 76; RESP 16
[2017-10-05 13:45] VITALS: BP 117/53; PULSE 73; RESP 16
[2017-10-05 14:10] VITALS: BP 129/62; PULSE 73; RESP 16
--- NOTE | 2017-10-05 16:27 | PC.NURSE ---
1325 - CRYSTAL FROM RADIOLOGY ARRIVED IN DEPT AT THIS TIME TO TRANSFER PT FOR X-RAY OF LEFT FOOT. TO RETURN TO OUTPATIENT INFUSION UPON COMPLETION OF X-RAY.
== END 2017-10-05 14:30 | disposition home or self-care (01) ==
LOC: INF 11:19
PROVIDERS: Podiatrist; Family Provider Family Medicine; PCP Family Medicine; Visit Provider Internal Medicine Adolescent Medicine
DX: M86.9 Osteomyelitis, unspecified (principal); E10.8 Type 1 diabetes mellitus with unspecified complications; I73.9 Peripheral vascular disease, unspecified; Z98.890 Other specified postprocedural states; Z89.511 Acquired absence of right leg below knee
CPT/HCPCS: 73630; 85025; 85651; 86140; 96365; 96366; J3370

== ENCOUNTER → 2017-10-06 11:15 | Outpatient (CLI) | payer MEDICARE, MEDICAID, SELFPAY ==
[2017-10-06 12:00] VITALS: BMI 48.4
[2017-10-06 12:08] LABS: Anion Gap 7.1 mEq/L (5-15); Blood Urea Nitrogen 8 mg/dL (7-18); Calcium 8.5 mg/dL (8.5-10.1); Carbon Dioxide 30 mmol/L (21.0-32.0); Chloride 102 mmol/L (98-107); Estimated Glomerular Filt Rate 71 ml/min (>60); GFR (African American) 86 ML/MIN (>60); Glucose 384 mg/dL (74-106); Potassium 4.1 mmoL/L (3.5-5.1); Sodium 135 mmol/L (136-145)
[2017-10-06 12:09] LABS: Vancomycin,Trough 12.2 mcg/ml (10.0-20.0)
[2017-10-06 12:30] VITALS: BP 116/54; PULSE 76; RESP 20; TEMP 36.1; O2SAT 95
[2017-10-06 13:00] VITALS: BP 140/67; PULSE 71; RESP 18; TEMP 36.7; O2SAT 97
[2017-10-06 13:15] VITALS: BP 130/56; PULSE 73; RESP 20; TEMP 36.7; O2SAT 98
--- NOTE | 2017-10-06 13:35 | P.CONPHA_ITS ---
- Pharmacy Consult Date: 10/06/17 Time: 13:33 Referring provider: DR. SHEN Reason for Consult:: VANCOMYCIN DOSING Allergies and ADEs:: Allergies Allergy/AdvReac Type Severity Reaction Status Date / Time ibuprofen [IBUPROFEN] Allergy Severe I-HIVES Verified 10/02/17 14:49 aspirin [ASPIRIN] Allergy Unknown Verified 10/02/17 14:49 zolpidem [From AMBIEN] Allergy Unknown Verified 10/02/17 14:49 Home Medications:: Home Medications Medication Instructions Recorded Confirmed Type atorvastatin 80 mg tablet 80 mg PO DAILY 30 Days #30 05/24/17 10/05/17 History clopidogrel 75 mg tablet 75 mg PO DAILY 30 Days #30 05/24/17 10/05/17 History gabapentin 600 mg tablet 600 mg PO TID 05/24/17 10/05/17 History omeprazole 20 mg capsule,delayed 20 mg PO DAILY 30 Days #30 05/24/17 10/05/17 History release ropinirole 1 mg tablet 1 mg PO HS 30 Days #30 05/24/17 10/05/17 History valsartan 160 mg tablet 160 mg PO DAILY 30 Days #30 05/24/17 10/05/17 History apixaban 5 mg tablet 5 mg PO BID 07/19/17 10/05/17 History Albuterol Sulfate [Albuterol HFA 1 puff INHALATION BID 07/28/17 10/05/17 History Inhaler] dilTIAZem HCl [Cardizem Cd] 120 mg PO DAILY 07/28/17 10/05/17 History Insulin Aspart [Novolog] 5 units SQ TID 09/17/17 10/05/17 History Insulin Degludec [Tresiba 20 units SQ HS 09/17/17 10/05/17 History Flextouch U-200] Hydrocodone/Acetaminophen 1 each PO Q6HP PRN 09/20/17 10/05/17 History [Hydrocodone-Acetamin 5-325 mg] Height: 1.57 m Weight: 58.967 kg Laboratory Results:: Laboratory Results - last 24 hr 10/06/17 11:30: Vancomycin Trough 12.2 10/06/17 11:30: Sodium 135 L, Potassium 4.1, Chloride 102, Carbon Dioxide 30, Anion Gap 7.1, BUN 8, Creatinine 0.80, Estimated GFR 71, Est GFR ( Amer) 86, Glucose 384 H, Calcium 8.5 Medical History: Reports:: Asthma, Atrial Fibrillation, Congestive Heart Failure , Chronic Obstructive Pulmonary Disease (COPD), Diabetes Mellitus Type 2, Gastroesophageal Reflux Disease(GERD), Hyperlipidemia, Hypertension, MRSA, Peripheral Artery Disease, Peripheral Vascular Disease Denies:: Cancer, Seizures Assessment and Plan - Assessment and plan all Dx Assessment and Plan for all problems:: BASED ON PATIENT'S VANCOMYCIN TROUGH LEVEL OF 12.2 MCG/ML, RECOMMEND CONTINUING WITH CURRENT DOSE AND INTERVAL OF VANCOMYCIN 1250 MG Q24H AT THIS TIME. PHARMACY WILL FOLLOW DAILY AND ADJUST APPROPRIATE. ARYAN FATIMA, [facility] HOSPITALAhmet
[2017-10-06 14:47] VITALS: BP 130/74; PULSE 69; RESP 20; TEMP 36.7; O2SAT 98
== END ==
PROVIDERS: Podiatrist; Family Provider Family Medicine; PCP Family Medicine; Visit Provider Internal Medicine Adolescent Medicine
DX: M86.9 Osteomyelitis, unspecified (principal); E10.8 Type 1 diabetes mellitus with unspecified complications; I73.9 Peripheral vascular disease, unspecified; Z89.511 Acquired absence of right leg below knee
CPT/HCPCS: 80048; 80202; 96365; J3370

== ENCOUNTER 2017-10-07 11:14 | Outpatient (CLI) | payer MEDICARE, MEDICAID, SELFPAY ==
[2017-10-07 11:54] VITALS: BP 118/47; PULSE 74; RESP 18; TEMP 36.6; O2SAT 96
[2017-10-07 11:57] VITALS: BMI 23.9
== END 2017-10-07 13:45 | disposition home or self-care (01) ==
LOC: INF 11:15
PROVIDERS: Family Provider Family Medicine; PCP Family Medicine; Visit Provider Internal Medicine Adolescent Medicine
DX: M86.9 Osteomyelitis, unspecified (principal); E10.8 Type 1 diabetes mellitus with unspecified complications; I73.9 Peripheral vascular disease, unspecified; Z89.511 Acquired absence of right leg below knee
CPT/HCPCS: 96366; J3370

== ENCOUNTER 2017-10-08 11:00 | Outpatient (CLI) | payer MEDICARE, MEDICAID, SELFPAY ==
[2017-10-08 11:30] VITALS: BP 121/55; PULSE 77; RESP 18; TEMP 37.4; O2SAT 95
[2017-10-08 12:00] VITALS: BP 129/67; PULSE 77; RESP 16
--- NOTE | 2017-10-08 12:12 | PC.NURSE ---
PT HAS ORDER FOR DRESSING CHANGE ON . SHE HAS APPOINTMENT WITH DR SHEN TODAY SO DRESSING CHANGE WILL BE DONE IN HER OFFICE.
[2017-10-08 12:30] VITALS: BP 113/53; PULSE 72; RESP 16
[2017-10-08 13:00] VITALS: BP 106/47; PULSE 72; RESP 16
[2017-10-08 13:20] VITALS: BP 125/53; PULSE 78; RESP 16
== END 2017-10-08 13:30 | disposition home or self-care (01) ==
LOC: INF 11:08
PROVIDERS: Family Provider Family Medicine; PCP Family Medicine; Visit Provider Internal Medicine Adolescent Medicine
DX: M86.9 Osteomyelitis, unspecified (principal); E10.8 Type 1 diabetes mellitus with unspecified complications; I73.9 Peripheral vascular disease, unspecified; Z89.511 Acquired absence of right leg below knee
CPT/HCPCS: 96365; 96366; J3370

== ENCOUNTER 2017-10-10 10:14 | Outpatient (CLI) | payer MEDICARE, MEDICAID, SELFPAY ==
[2017-10-10 10:45] VITALS: BP 134/47; PULSE 68; RESP 20; TEMP 36.6; O2SAT 95
[2017-10-10 11:15] VITALS: BP 131/51; PULSE 69; RESP 20; O2SAT 96
[2017-10-10 11:45] VITALS: BP 136/50; PULSE 70; RESP 20; O2SAT 96
[2017-10-10 12:15] VITALS: BP 130/54; PULSE 66; RESP 20; O2SAT 96
[2017-10-10 12:50] VITALS: BP 135/51; PULSE 68; RESP 20; O2SAT 96
== END 2017-10-10 12:55 | disposition home or self-care (01) ==
LOC: INF 10:14
PROVIDERS: Family Provider Family Medicine; PCP Family Medicine; Visit Provider Internal Medicine Adolescent Medicine
DX: M86.9 Osteomyelitis, unspecified (principal); E10.8 Type 1 diabetes mellitus with unspecified complications; I73.9 Peripheral vascular disease, unspecified; Z89.511 Acquired absence of right leg below knee
CPT/HCPCS: 96365; 96366; G0463; J3370

== ENCOUNTER 2017-10-11 11:00 | Outpatient (CLI) | payer MEDICARE, MEDICAID, SELFPAY ==
[2017-10-11 11:20] VITALS: BP 134/76; PULSE 76; RESP 18; O2SAT 93
[2017-10-11 11:50] VITALS: BP 139/99; PULSE 78; RESP 16
[2017-10-11 12:20] VITALS: BP 114/70; PULSE 75; RESP 16
[2017-10-11 12:50] VITALS: BP 98/40; PULSE 74; RESP 16
[2017-10-11 13:20] VITALS: BP 121/58; PULSE 75; RESP 16
== END 2017-10-11 13:40 | disposition home or self-care (01) ==
LOC: INF 11:12
PROVIDERS: Family Provider Family Medicine; PCP Family Medicine; Visit Provider Internal Medicine Adolescent Medicine
DX: M86.9 Osteomyelitis, unspecified (principal); E10.8 Type 1 diabetes mellitus with unspecified complications; I73.9 Peripheral vascular disease, unspecified; Z89.511 Acquired absence of right leg below knee
CPT/HCPCS: 96365; 96366; J3370

== ENCOUNTER 2017-10-12 10:30 | Outpatient (CLI) | payer MEDICARE, MEDICAID, SELFPAY ==
[2017-10-12 11:30] VITALS: BP 119/61; PULSE 68; RESP 20; TEMP 37.1; O2SAT 96
[2017-10-12 12:00] VITALS: BP 119/65; PULSE 68; RESP 20; TEMP 36.9; O2SAT 96
[2017-10-12 12:30] VITALS: BP 122/70; PULSE 76; RESP 20; TEMP 36.9; O2SAT 95
[2017-10-12 13:00] VITALS: BP 118/70; PULSE 68; RESP 20; TEMP 36.9; O2SAT 95
[2017-10-12 13:40] VITALS: BP 122/62; PULSE 68; RESP 20; TEMP 36.7; O2SAT 96
--- NOTE | 2017-10-12 17:19 | PC.NURSE ---
WOUND CARE TO LEFT FOOT STUMP; CLEANED AREA WITH BETADINE; NATE INTACT; EDGES WELL APPROXIMATED; TWO SMALL DARK SPOTS ON BOTTOM OF THE STUMP; APPEAR TO EITHER BE DARK AREAS OR DARK DUE TO BLOOD WHERE THE PATIENT PUTS PRESSURE ON HER STUMP WITH TRANSFERING; MD IS AWARE OF THESE; WTAPPED WITH KERLIX; PT TOLERATED WITHOUT ANY PROBLEMS
== END 2017-10-12 13:40 | disposition home or self-care (01) ==
LOC: INF 11:39
PROVIDERS: Family Provider Family Medicine; PCP Family Medicine; Visit Provider Internal Medicine Adolescent Medicine
DX: M86.9 Osteomyelitis, unspecified (principal); E10.8 Type 1 diabetes mellitus with unspecified complications; I73.9 Peripheral vascular disease, unspecified; Z89.511 Acquired absence of right leg below knee
CPT/HCPCS: 96365; 96366; G0463; J3370

== ENCOUNTER → 2017-10-13 10:59 | Outpatient (CLI) | payer MEDICARE, MEDICAID, SELFPAY ==
[2017-10-13 10:59] VITALS: BP 134/58; PULSE 76; RESP 16; TEMP 36.7; O2SAT 96
[2017-10-13 11:42] LABS: Anion Gap 10.4 mEq/L (5-15); Blood Urea Nitrogen 8 mg/dL (7-18); Calcium 8.3 mg/dL (8.5-10.1); Carbon Dioxide 26 mmol/L (21.0-32.0); Chloride 106 mmol/L (98-107); Creatinine,Serum 0.78 mg/dL (0.55-1.02); Estimated Glomerular Filt Rate 73 ml/min (>60); GFR (African American) 89 ML/MIN (>60); Glucose 378 mg/dL (74-106); Potassium 4.4 mmoL/L (3.5-5.1); Sodium 138 mmol/L (136-145); Vancomycin,Trough 13.4 mcg/ml (10.0-20.0)
[2017-10-13 12:40] VITALS: BP 125/70; PULSE 73; RESP 16; TEMP 36.7; O2SAT 95; BMI 29.2
[2017-10-13 13:40] VITALS: BP 130/70; PULSE 75; RESP 18; TEMP 36.7; O2SAT 95
== END ==
PROVIDERS: Family Provider Family Medicine; PCP Family Medicine; Visit Provider Internal Medicine Adolescent Medicine
DX: M86.9 Osteomyelitis, unspecified (principal); E10.8 Type 1 diabetes mellitus with unspecified complications; I73.9 Peripheral vascular disease, unspecified; Z89.511 Acquired absence of right leg below knee
CPT/HCPCS: 80048; 80202; 96365; 96366; J3370

== ENCOUNTER → 2017-10-14 11:06 | Outpatient (CLI) | payer MEDICARE, MEDICAID, SELFPAY ==
[2017-10-14 11:21] VITALS: BP 120/46; PULSE 73; RESP 18; TEMP 36.7; O2SAT 95; BMI 24.1
[2017-10-14 12:20] VITALS: BP 122/46; PULSE 73; RESP 18; TEMP 36.7; O2SAT 95
[2017-10-14 13:30] VITALS: BP 131/55; PULSE 75; RESP 18; TEMP 36.8; O2SAT 100
== END ==
PROVIDERS: Family Provider Family Medicine; PCP Family Medicine; Visit Provider Internal Medicine Adolescent Medicine
DX: M86.9 Osteomyelitis, unspecified (principal); E10.8 Type 1 diabetes mellitus with unspecified complications; I73.9 Peripheral vascular disease, unspecified; Z89.511 Acquired absence of right leg below knee
CPT/HCPCS: 96365; 96366; J3370

== ENCOUNTER 2017-10-15 10:50 | Outpatient (CLI) | payer MEDICARE, MEDICAID, SELFPAY ==
[2017-10-15 11:02] VITALS: BP 139/56; PULSE 76; RESP 18; TEMP 37.1; O2SAT 97
[2017-10-15 11:32] VITALS: BP 134/58; PULSE 79; RESP 18; O2SAT 97
[2017-10-15 12:02] VITALS: BP 141/54; PULSE 78; RESP 18; O2SAT 96
[2017-10-15 12:32] VITALS: BP 137/59; PULSE 79; RESP 18; O2SAT 97
[2017-10-15 13:08] VITALS: BP 133/60; PULSE 75; RESP 18; O2SAT 97
== END 2017-10-15 13:18 | disposition home or self-care (01) ==
LOC: INF 10:50
PROVIDERS: Family Provider Family Medicine; PCP Family Medicine; Visit Provider Internal Medicine Adolescent Medicine
DX: M86.9 Osteomyelitis, unspecified (principal); E10.8 Type 1 diabetes mellitus with unspecified complications; I73.9 Peripheral vascular disease, unspecified; Z89.511 Acquired absence of right leg below knee
CPT/HCPCS: 87070; 87205; 96365; 96366; J3370

== ENCOUNTER → 2017-10-15 16:13 | Outpatient (REF) | payer MEDICARE, MEDICAID, SELFPAY | LOC: LAB 16:13 | PROVIDERS: Visit Provider Podiatrist | DX: M86.9 Osteomyelitis, unspecified (principal) | CPT/HCPCS: 87070; 87077; 87186; 87205 ==

== ENCOUNTER 2017-10-16 11:30 | Outpatient (CLI) | payer MEDICARE, MEDICAID, SELFPAY ==
[2017-10-16 11:33] VITALS: BMI 24.3
[2017-10-16 12:02] VITALS: BP 115/63; PULSE 74; RESP 18; TEMP 37.1; O2SAT 95
[2017-10-16 12:05] LABS: Basophils % 0.6 % (0.1-2.0); Eosinophils # 0.3 K/mm3 (0.0-0.4); Eosinophils % 5.7 % (0.1-12.0); Hematocrit 37.4 % (37.0-47.0); Hemoglobin 11.6 g/dL (12.2-16.2); Lymphocytes # 1.3 K/mm3 (0.7-4.5); Lymphocytes % 23.5 K/mm3 (10-50); Mean Corpuscular Hemoglobin 27.2 pg (27.0-31.2); Mean Corpuscular Volume 87.8 fl (81-99); Mean Platelet Volume 8.7 fl (7.4-10.4); Monocytes # 0.4 K/mm3 (0.1-1.0); Monocytes % 6.5 % (1.7-9.3); Neutrophils # 3.6 K/mm3 (1.8-7.8); Neutrophils % 63.7 % (37.0-80.0); Platelet Count 242 K/mm3 (142-424); Red Blood Count 4.26 M/mm3 (4.20-5.40); Red Cell Distribution Width 14.1 % (11.5-17.5); White Blood Count 5.7 K/mm3 (4.8-10.8)
[2017-10-16 12:37] LABS: C-Reactive Protein < 0.2 mg/L (0.0-0.9)
[2017-10-16 12:56] LABS: Erythrocyte Sedimentation Rate 14 mm/hr (0-30)
[2017-10-16 14:34] VITALS: BP 126/70; PULSE 80; RESP 18; O2SAT 95
== END 2017-10-16 14:05 | disposition home or self-care (01) ==
LOC: INF 11:32
PROVIDERS: Podiatrist; Family Provider Family Medicine; PCP Family Medicine; Visit Provider Internal Medicine Adolescent Medicine
DX: M86.9 Osteomyelitis, unspecified (principal); E10.8 Type 1 diabetes mellitus with unspecified complications; I73.9 Peripheral vascular disease, unspecified; Z89.511 Acquired absence of right leg below knee
CPT/HCPCS: 85025; 85651; 86140; 96365; 96366; J3370

== ENCOUNTER 2017-10-17 11:19 | Outpatient (CLI) | payer MEDICARE, MEDICAID, SELFPAY ==
[2017-10-17 12:03] VITALS: BP 138/56; PULSE 77; RESP 18; TEMP 36.6; O2SAT 95
[2017-10-17 12:35] VITALS: BP 144/67; PULSE 74; RESP 18; TEMP 36.4; O2SAT 96
[2017-10-17 13:00] VITALS: BP 132/76; PULSE 72; RESP 16; O2SAT 96
[2017-10-17 13:30] VITALS: BP 129/75; PULSE 80; RESP 18; TEMP 36.6; O2SAT 95
[2017-10-17 14:00] VITALS: BP 134/69; PULSE 72; RESP 16; TEMP 36.6; O2SAT 96
[2017-10-17 14:10] VITALS: BP 130/69; PULSE 75; RESP 18; TEMP 36.6; O2SAT 97
== END 2017-10-17 14:15 | disposition home or self-care (01) ==
LOC: INF 11:19
PROVIDERS: Family Provider Family Medicine; PCP Family Medicine; Visit Provider Internal Medicine Adolescent Medicine
DX: M86.9 Osteomyelitis, unspecified (principal); E10.8 Type 1 diabetes mellitus with unspecified complications; I73.9 Peripheral vascular disease, unspecified
CPT/HCPCS: 96365; 96366; G0463; J3370

== ENCOUNTER 2017-10-18 10:43 | Outpatient (CLI) | payer MEDICARE, MEDICAID, SELFPAY ==
[2017-10-18 11:07] VITALS: BP 119/62; PULSE 73; RESP 20; TEMP 36.6; O2SAT 96
[2017-10-18 11:37] VITALS: BP 121/59; PULSE 79; RESP 20; O2SAT 98
[2017-10-18 12:07] VITALS: BP 118/56; PULSE 78; RESP 20; O2SAT 97
[2017-10-18 12:37] VITALS: BP 122/60; PULSE 76; RESP 20; O2SAT 97
[2017-10-18 13:07] VITALS: BP 115/59; PULSE 77; RESP 20; O2SAT 96
[2017-10-18 13:30] VITALS: BP 118/54; PULSE 78; RESP 20; O2SAT 96
== END 2017-10-18 13:40 | disposition home or self-care (01) ==
LOC: INF 12:15
PROVIDERS: Family Provider Family Medicine; PCP Family Medicine; Visit Provider Internal Medicine Adolescent Medicine
DX: M86.9 Osteomyelitis, unspecified (principal); E10.8 Type 1 diabetes mellitus with unspecified complications; I73.9 Peripheral vascular disease, unspecified; Z89.511 Acquired absence of right leg below knee
CPT/HCPCS: 96365; 96366; J3370

== ENCOUNTER 2017-10-19 10:50 | Outpatient (CLI) | payer MEDICARE, MEDICAID, SELFPAY ==
[2017-10-19 11:05] VITALS: BMI 24.7
[2017-10-19 11:32] LABS: Anion Gap 7.3 mEq/L (5-15); Blood Urea Nitrogen 10 mg/dL (7-18); Calcium 8.2 mg/dL (8.5-10.1); Carbon Dioxide 29 mmol/L (21.0-32.0); Chloride 103 mmol/L (98-107); Creatinine Clearance Estimated 51 mL/min (0-300); Creatinine,Serum 0.83 mg/dL (0.55-1.02); Estimated Glomerular Filt Rate 68 ml/min (>60); GFR (African American) 82 ML/MIN (>60); Glucose 339 mg/dL (74-106); Potassium 4.3 mmoL/L (3.5-5.1); Sodium 135 mmol/L (136-145); Vancomycin,Trough 14.3 mcg/ml (10.0-20.0)
[2017-10-19 11:55] VITALS: BP 127/53; PULSE 76; RESP 18; TEMP 36.7
[2017-10-19 12:25] VITALS: BP 131/60; PULSE 76; RESP 18
[2017-10-19 12:55] VITALS: BP 112/53; PULSE 74; RESP 16
[2017-10-19 13:25] VITALS: BP 102/46; PULSE 72; RESP 16
[2017-10-19 13:50] VITALS: BP 117/49; PULSE 73; RESP 16
--- NOTE | 2017-10-19 16:42 | PC.NURSE ---
PT HAS NATE IN PLACE OVER LEFT FOOT FROM TRANSMETATARSAL AMPUTATION. CLEANED AREA WITH BETADINE, COVERED WITH BETADINE SOAKED 4X4 AND WRAPPED WITH KERLEX.
== END 2017-10-19 14:00 | disposition home or self-care (01) ==
LOC: INF 11:36
PROVIDERS: Family Provider Family Medicine; PCP Family Medicine; Visit Provider Podiatrist
DX: M86.9 Osteomyelitis, unspecified (principal); E10.8 Type 1 diabetes mellitus with unspecified complications; I73.9 Peripheral vascular disease, unspecified; Z89.511 Acquired absence of right leg below knee
CPT/HCPCS: 80048; 80202; 96365; 96366; G0463; J3370

== ENCOUNTER 2017-10-20 11:12 | Outpatient (CLI) | payer MEDICARE, MEDICAID, SELFPAY ==
[2017-10-20 11:40] VITALS: BP 135/78; PULSE 84; RESP 20; O2SAT 98
[2017-10-20 14:10] VITALS: BP 128/88; PULSE 72; RESP 16; TEMP 37; O2SAT 96
== END 2017-10-20 14:50 | disposition home or self-care (01) ==
PROVIDERS: Family Provider Family Medicine; PCP Family Medicine; Visit Provider Podiatrist
DX: M86.9 Osteomyelitis, unspecified (principal); E10.8 Type 1 diabetes mellitus with unspecified complications; I73.9 Peripheral vascular disease, unspecified; Z89.511 Acquired absence of right leg below knee
CPT/HCPCS: 96365; 96366; J3370

== ENCOUNTER → 2017-10-21 11:16 | Outpatient (CLI) | payer MEDICARE, MEDICAID, SELFPAY ==
[2017-10-21 12:47] VITALS: BP 126/57; PULSE 78; RESP 20; TEMP 37.2; O2SAT 92
== END ==
PROVIDERS: Family Provider Family Medicine; PCP Family Medicine; Visit Provider Podiatrist
DX: M86.9 Osteomyelitis, unspecified (principal); E10.8 Type 1 diabetes mellitus with unspecified complications; I73.9 Peripheral vascular disease, unspecified; Z89.511 Acquired absence of right leg below knee
CPT/HCPCS: 96365; 96366; J3370

== ENCOUNTER 2017-10-22 11:00 | Outpatient (CLI) | payer MEDICARE, MEDICAID, SELFPAY ==
[2017-10-22 11:26] VITALS: BP 117/57; PULSE 76; RESP 20; TEMP 36.6; O2SAT 96
[2017-10-22 11:56] VITALS: BP 121/59; PULSE 74; RESP 20; O2SAT 97
[2017-10-22 12:26] VITALS: BP 114/56; PULSE 71; RESP 20; O2SAT 97
[2017-10-22 12:56] VITALS: BP 119/59; PULSE 76; RESP 20; O2SAT 96
[2017-10-22 13:26] VITALS: BP 125/61; PULSE 74; RESP 20; O2SAT 97
[2017-10-22 13:35] VITALS: BP 116/59; PULSE 72; RESP 20; O2SAT 97
== END 2017-10-22 13:45 | disposition home or self-care (01) ==
LOC: INF 11:08
PROVIDERS: Family Provider Family Medicine; PCP Family Medicine; Visit Provider Podiatrist
DX: M86.9 Osteomyelitis, unspecified (principal); E10.8 Type 1 diabetes mellitus with unspecified complications; I73.9 Peripheral vascular disease, unspecified; Z89.511 Acquired absence of right leg below knee
CPT/HCPCS: 96365; 96366; J3370

== ENCOUNTER 2017-10-23 11:01 | Outpatient (CLI) | payer MEDICARE, MEDICAID, SELFPAY ==
[2017-10-23] VITALS (7 sets, daily range): BP systolic 131–144; BP diastolic 57–79; PULSE 69–78; RESP 18–20; TEMP 36.6; O2SAT 95–96
--- NOTE | 2017-10-23 17:25 | PC.NURSE ---
1404 Cath-martín 2mg instilled to L upper arm PICC per protocol d/t no blood return/ PICC does flush easily and pt denies c/o regarding PICC/site appears clear with no prob noted. 1430 Attempted to withdraw cath-martín 2mg (2.2ml) from PICC. Unable to withdraw at this time/no blood return. 1445 Unable to withdraw cath-martín from PICC. Cath-martín left in place per protocol to be rechecked in am. Pt instructed/aware to not allow PICC to be flushed/note secured to PICC drsg stating cath-martín is instilled/do not flush. Pt stable upon discharge.
== END 2017-10-23 14:45 | disposition home or self-care (01) ==
LOC: INF 11:02
PROVIDERS: Family Provider Family Medicine; PCP Family Medicine; Visit Provider Podiatrist
DX: M86.9 Osteomyelitis, unspecified (principal); E10.8 Type 1 diabetes mellitus with unspecified complications; I73.9 Peripheral vascular disease, unspecified; Z89.511 Acquired absence of right leg below knee
CPT/HCPCS: 96365; 96366; J3370

== ENCOUNTER 2017-10-24 13:35 | Outpatient (CLI) | payer MEDICARE, MEDICAID, SELFPAY ==
[2017-10-24 11:05] VITALS: BMI 24.3
[2017-10-24 11:30] LABS: Blood Urea Nitrogen 8 mg/dL (7-18); Calcium 8.5 mg/dL (8.5-10.1); Carbon Dioxide 26 mmol/L (21.0-32.0); Chloride 107 mmol/L (98-107); Creatinine Clearance Estimated 51 mL/min (0-300); Creatinine,Serum 0.72 mg/dL (0.55-1.02); Estimated Glomerular Filt Rate 80 ml/min (>60); GFR (African American) 97 ML/MIN (>60); Glucose 234 mg/dL (74-106); Sodium 141 mmol/L (136-145); Vancomycin,Trough 14.6 mcg/ml (10.0-20.0)
[2017-10-24 11:50] VITALS: BP 141/64; PULSE 74; RESP 18; TEMP 36.6; O2SAT 98
[2017-10-24 12:20] VITALS: BP 136/72; PULSE 76; RESP 18; O2SAT 97
[2017-10-24 12:50] VITALS: BP 129/69; PULSE 74; RESP 18; O2SAT 97
[2017-10-24 13:20] VITALS: BP 132/74; PULSE 78; RESP 18; O2SAT 97
[2017-10-24 14:00] VITALS: BP 127/68; PULSE 79; RESP 18; O2SAT 96
== END 2017-10-24 14:00 | disposition home or self-care (01) ==
LOC: INF 17:45
PROVIDERS: Family Provider Family Medicine; PCP Family Medicine; Visit Provider Podiatrist
DX: M86.9 Osteomyelitis, unspecified (principal); E10.8 Type 1 diabetes mellitus with unspecified complications; I73.9 Peripheral vascular disease, unspecified; Z89.511 Acquired absence of right leg below knee
CPT/HCPCS: 80048; 80202; 96365; 96366; G0463; J3370

== ENCOUNTER 2017-10-26 11:15 | Outpatient (CLI) | payer MEDICARE, MEDICAID, SELFPAY ==
[2017-10-26 11:45] VITALS: BP 114/53; PULSE 66; RESP 20; TEMP 36.7; O2SAT 96
[2017-10-26 12:15] VITALS: BP 122/70; PULSE 73; RESP 20; TEMP 36.9; O2SAT 96
[2017-10-26 12:45] VITALS: BP 115/70; PULSE 68; RESP 20; TEMP 36.9; O2SAT 96
[2017-10-26 13:15] VITALS: BP 128/50; PULSE 66; RESP 20; TEMP 36.9; O2SAT 96
[2017-10-26 13:40] VITALS: BP 130/56; PULSE 73; RESP 20; TEMP 36.9; O2SAT 96
--- NOTE | 2017-10-26 17:22 | PC.NURSE ---
PT WOUND CARE TO RIGHT FOOT; NATE INTACT; TOP PORTION OF THE FOOT CLOSE TO STAPLE; PINK/WHITE ESCHAR NOTED; SOFT; DEBRIDED THE AREA THIS WEEK; NO ABNORMAL DRAINAGE NOTED FROM THE SITE; CLEANED WITH BETADINE AND WRAPPED WITH KERLIX
== END 2017-10-26 13:45 | disposition home or self-care (01) ==
LOC: INF 11:44
PROVIDERS: Family Provider Family Medicine; PCP Family Medicine; Visit Provider Podiatrist
DX: M86.9 Osteomyelitis, unspecified (principal); E10.8 Type 1 diabetes mellitus with unspecified complications; I73.9 Peripheral vascular disease, unspecified; Z89.511 Acquired absence of right leg below knee
CPT/HCPCS: 96365; 96366; G0463; J3370

== ENCOUNTER → 2017-10-27 11:09 | Outpatient (CLI) | payer MEDICARE, MEDICAID, SELFPAY ==
[2017-10-27 12:11] VITALS: BP 150/50; BP 159/57; PULSE 76; PULSE 78; RESP 18; TEMP 36.8; O2SAT 95; BMI 25.6
[2017-10-27 14:20] VITALS: BP 128/49; PULSE 73; RESP 18; TEMP 36.8; O2SAT 95
== END ==
PROVIDERS: Family Provider Family Medicine; PCP Family Medicine; Visit Provider Podiatrist
DX: M86.9 Osteomyelitis, unspecified (principal); E10.8 Type 1 diabetes mellitus with unspecified complications; I73.9 Peripheral vascular disease, unspecified; Z89.511 Acquired absence of right leg below knee
CPT/HCPCS: 96365; 96366; G0463; J3370

== ENCOUNTER → 2017-10-28 11:13 | Outpatient (CLI) | payer MEDICARE, MEDICAID, SELFPAY ==
[2017-10-28 11:41] VITALS: BP 144/68; PULSE 74; RESP 18; TEMP 36.6; O2SAT 93; BMI 25.6
[2017-10-28 12:40] VITALS: BP 140/56; PULSE 73; RESP 18; TEMP 36.6; O2SAT 98
[2017-10-28 13:35] VITALS: BP 136/52; PULSE 74; RESP 18; TEMP 36.6; O2SAT 98
== END ==
PROVIDERS: Family Provider Family Medicine; PCP Family Medicine; Visit Provider Podiatrist
DX: M86.9 Osteomyelitis, unspecified (principal); E10.8 Type 1 diabetes mellitus with unspecified complications; I73.9 Peripheral vascular disease, unspecified; Z89.511 Acquired absence of right leg below knee
CPT/HCPCS: 96365; 96366; G0463; J3370

== ENCOUNTER 2017-10-29 11:00 | Outpatient (CLI) | payer MEDICARE, MEDICAID, SELFPAY ==
[2017-10-29 11:45] VITALS: BP 150/46; PULSE 80; RESP 16; TEMP 36.6
[2017-10-29 11:45] LABS: Anion Gap 8.9 mEq/L (5-15); Blood Urea Nitrogen 10 mg/dL (7-18); Calcium 8.7 mg/dL (8.5-10.1); Carbon Dioxide 29 mmol/L (21.0-32.0); Chloride 104 mmol/L (98-107); Creatinine,Serum 0.71 mg/dL (0.55-1.02); Estimated Glomerular Filt Rate 82 ml/min (>60); GFR (African American) 99 ML/MIN (>60); Glucose 320 mg/dL (74-106); Potassium 3.9 mmoL/L (3.5-5.1); Sodium 138 mmol/L (136-145); Vancomycin,Trough 12.2 mcg/ml (10.0-20.0)
[2017-10-29 12:15] VITALS: BP 149/79; PULSE 81; RESP 18
[2017-10-29 12:45] VITALS: BP 126/76; PULSE 75; RESP 18
[2017-10-29 13:15] VITALS: BP 120/49; PULSE 74; RESP 18
--- NOTE | 2017-10-29 13:30 | HMH.PHACONS ---
- Pharmacy Consult Date: 10/29/17 Time: 13:30 Referring provider: DR. SHEN Reason for Consult:: VANCOMYCIN TROUGH LEVEL Allergies and ADEs:: Allergies Allergy/AdvReac Type Severity Reaction Status Date / Time ibuprofen [IBUPROFEN] Allergy Severe I-HIVES Verified 10/22/17 14:46 aspirin [ASPIRIN] Allergy Unknown Verified 10/22/17 14:46 zolpidem [From AMBIEN] Allergy Unknown Verified 10/22/17 14:46 Home Medications:: Home Medications Medication Instructions Recorded Confirmed Type atorvastatin 80 mg tablet 80 mg PO DAILY 30 Days #30 05/24/17 10/29/17 History clopidogrel 75 mg tablet 75 mg PO DAILY 30 Days #30 05/24/17 10/29/17 History gabapentin 600 mg tablet 600 mg PO TID 05/24/17 10/29/17 History omeprazole 20 mg capsule,delayed 20 mg PO DAILY 30 Days #30 05/24/17 10/29/17 History release ropinirole 1 mg tablet 1 mg PO HS 30 Days #30 05/24/17 10/29/17 History valsartan 160 mg tablet 160 mg PO DAILY 30 Days #30 05/24/17 10/29/17 History apixaban 5 mg tablet 5 mg PO BID 07/19/17 10/29/17 History Albuterol Sulfate [Albuterol HFA 1 puff INHALATION BID 07/28/17 10/29/17 History Inhaler] dilTIAZem HCl [Cardizem Cd] 120 mg PO DAILY 07/28/17 10/29/17 History Hydrocodone/Acetaminophen 1 each PO Q6HP PRN 09/20/17 10/29/17 History [Hydrocodone-Acetamin 5-325 mg] sitagliptin 50 mg tablet 50 mg PO DAILY 30 Days #30 10/15/17 10/29/17 History insulin aspart U-100 100 unit/mL 0.04 unit/g of ch2o SUB-Q TID ml 10/22/17 10/29/17 History subcutaneous solution Height: 1.57 m Weight: 60 kg Laboratory Results:: Laboratory Results - last 24 hr 10/29/17 11:15: Vancomycin Trough 12.2 10/29/17 11:15: Sodium 138, Potassium 3.9, Chloride 104, Carbon Dioxide 29, Anion Gap 8.9, BUN 10, Creatinine 0.71, Estimated GFR 82, Est GFR ( Amer) 99, Glucose 320 H, Calcium 8.7 Medical History: Reports:: Asthma, Atrial Fibrillation, Congestive Heart Failure, Chronic Obstructive Pulmonary Disease (COPD), Diabetes Mellitus Type 2, Gastroesophageal Reflux Disease(GERD), Hyperlipidemia, Hypertension, MRSA, Peripheral Artery Disease, Peripheral Vascular Disease Denies:: Cancer, Seizures Assessment and Plan - Assessment and plan all Dx Assessment and Plan for all problems:: PATIENT'S VANCOMYCIN TROUGH LEVEL WAS 12.2 MCG/ML TODAY. RENAL FUNCTION REMAINS STABLE WELL. RECOMMENDED PATIENT CONTINUE WITH CURRENT DOSE AND INTERVAL OF VANCOMYCIN 1250 MG Q24H AT THIS TIME. PHARMACY WILL FOLLOW DAILY AND ADJUST APPROPRIATE. ARYAN FATIMA, PHARMD
--- NOTE | 2017-10-29 13:34 | P.CONPHA_ITS ---
- Pharmacy Consult Date: 10/29/17 Time: 13:30 Referring provider: DR. SHEN Reason for Consult:: VANCOMYCIN TROUGH LEVEL Allergies and ADEs:: Allergies Allergy/AdvReac Type Severity Reaction Status Date / Time ibuprofen [IBUPROFEN] Allergy Severe I-HIVES Verified 10/22/17 14:46 aspirin [ASPIRIN] Allergy Unknown Verified 10/22/17 14:46 zolpidem [From AMBIEN] Allergy Unknown Verified 10/22/17 14:46 Home Medications:: Home Medications Medication Instructions Recorded Confirmed Type atorvastatin 80 mg tablet 80 mg PO DAILY 30 Days #30 05/24/17 10/29/17 History clopidogrel 75 mg tablet 75 mg PO DAILY 30 Days #30 05/24/17 10/29/17 History gabapentin 600 mg tablet 600 mg PO TID 05/24/17 10/29/17 History omeprazole 20 mg capsule,delayed 20 mg PO DAILY 30 Days #30 05/24/17 10/29/17 History release ropinirole 1 mg tablet 1 mg PO HS 30 Days #30 05/24/17 10/29/17 History valsartan 160 mg tablet 160 mg PO DAILY 30 Days #30 05/24/17 10/29/17 History apixaban 5 mg tablet 5 mg PO BID 07/19/17 10/29/17 History Albuterol Sulfate [Albuterol HFA 1 puff INHALATION BID 07/28/17 10/29/17 History Inhaler] dilTIAZem HCl [Cardizem Cd] 120 mg PO DAILY 07/28/17 10/29/17 History Hydrocodone/Acetaminophen 1 each PO Q6HP PRN 09/20/17 10/29/17 History [Hydrocodone-Acetamin 5-325 mg] sitagliptin 50 mg tablet 50 mg PO DAILY 30 Days #30 10/15/17 10/29/17 History insulin aspart U-100 100 unit/mL 0.04 unit/g of ch2o SUB-Q TID ml 10/22/17 History subcutaneous solution Height: 1.57 m Weight: 60 kg Laboratory Results:: Laboratory Results - last 24 hr 10/29/17 11:15: Vancomycin Trough 12.2 10/29/17 11:15: Sodium 138, Potassium 3.9, Chloride 104, Carbon Dioxide 29, Anion Gap 8.9, BUN 10, Creatinine 0.71, Estimated GFR 82, Est GFR ( Amer ) 99, Glucose 320 H, Calcium 8.7 Medical History: Reports:: Asthma, Atrial Fibrillation, Congestive Heart Failure , Chronic Obstructive Pulmonary Disease (COPD), Diabetes Mellitus Type 2, Gastroesophageal Reflux Disease(GERD), Hyperlipidemia, Hypertension, MRSA, Peripheral Artery Disease, Peripheral Vascular Disease Denies:: Cancer, Seizures Assessment and Plan - Assessment and plan all Dx Assessment and Plan for all problems:: PATIENT'S VANCOMYCIN TROUGH LEVEL WAS 12.2 MCG/ML TODAY. RENAL FUNCTION REMAINS STABLE WELL. RECOMMENDED PATIENT CONTINUE WITH CURRENT DOSE AND INTERVAL OF VANCOMYCIN 1250 MG Q24H AT THIS TIME. PHARMACY WILL FOLLOW DAILY AND ADJUST APPROPRIATE. ARYAN FATIMA, PHARMD
[2017-10-29 13:45] VITALS: BP 148/61; PULSE 77; RESP 20
[2017-10-29 13:50] VITALS: BP 157/60; PULSE 86; RESP 18
== END 2017-10-29 13:50 | disposition home or self-care (01) ==
LOC: INF 11:00
PROVIDERS: Family Provider Family Medicine; PCP Family Medicine; Visit Provider Podiatrist
DX: M86.9 Osteomyelitis, unspecified (principal); E10.8 Type 1 diabetes mellitus with unspecified complications; I73.9 Peripheral vascular disease, unspecified; Z89.511 Acquired absence of right leg below knee
CPT/HCPCS: 80048; 80202; 96365; 96366; J3370

== ENCOUNTER 2017-10-30 11:20 | Outpatient (CLI) | payer MEDICARE, MEDICAID, SELFPAY ==
[2017-10-30 11:23] VITALS: BP 139/63; PULSE 72; RESP 18; TEMP 36.6; O2SAT 96
[2017-10-30 11:50] VITALS: BP 132/70; PULSE 75; RESP 18; TEMP 36.6; O2SAT 95
[2017-10-30 12:20] VITALS: BP 140/76; PULSE 70; RESP 20
[2017-10-30 12:50] VITALS: BP 131/68; PULSE 72; RESP 18; TEMP 36.7; O2SAT 96
[2017-10-30 13:20] VITALS: BP 129/72; PULSE 76; RESP 18
[2017-10-30 13:50] VITALS: BP 137/74; PULSE 79; RESP 18; TEMP 36.6; O2SAT 96
== END 2017-10-30 13:50 | disposition home or self-care (01) ==
LOC: INF 11:20
PROVIDERS: Family Provider Family Medicine; PCP Family Medicine; Visit Provider Podiatrist
DX: M86.9 Osteomyelitis, unspecified (principal); E10.8 Type 1 diabetes mellitus with unspecified complications; I73.9 Peripheral vascular disease, unspecified; Z89.511 Acquired absence of right leg below knee
CPT/HCPCS: 96365; 96366; J3370

== ENCOUNTER 2017-10-31 10:20 | Outpatient (CLI) | payer MEDICARE, MEDICAID, SELFPAY ==
[2017-10-31 10:50] VITALS: BP 116/48; PULSE 71; RESP 18; TEMP 37.1; O2SAT 91
[2017-10-31 11:20] VITALS: BP 120/79; PULSE 73; RESP 16
[2017-10-31 11:50] VITALS: BP 115/48; PULSE 73; RESP 16
[2017-10-31 12:20] VITALS: BP 96/42; PULSE 68; RESP 16
[2017-10-31 12:50] VITALS: BP 116/46; PULSE 73; RESP 16
--- NOTE | 2017-10-31 15:30 | PC.NURSE ---
1115 - REMOVED OLD DRESSING FROM LEFT FOOT. PT IS S/P TRANSMETATARSAL AMPUTATION WITH NATE STILL IN PLACE AND WELL APPROXIMATED. AREA ABOVE STAPLE LINE APPEARS RAW WITH SOME OUTER LAYER OF SKIN THAT HAS BEEN REMOVED BY DR SHEN.CLEANED AREA WITH NS FOLLOWD BY BETADINE. COVERED INCISION LINE WITH BETADINE COVERED 4X4 FOLLOWED BY DRY 4X4'S. HELD IN PLACE BY WRAPPING WITH KERLIX.
== END 2017-10-31 12:55 | disposition home or self-care (01) ==
LOC: INF 10:31
PROVIDERS: Family Provider Family Medicine; PCP Family Medicine; Visit Provider Podiatrist
DX: M86.9 Osteomyelitis, unspecified (principal); E10.8 Type 1 diabetes mellitus with unspecified complications; I73.9 Peripheral vascular disease, unspecified; Z89.511 Acquired absence of right leg below knee
CPT/HCPCS: 96365; 96366; G0463; J3370

== ENCOUNTER 2017-11-01 11:00 | Outpatient (CLI) | payer MEDICARE, MEDICAID, SELFPAY ==
[2017-11-01 11:15] VITALS: BP 114/65; PULSE 77; RESP 18; TEMP 36.3; O2SAT 94
[2017-11-01 12:15] VITALS: BP 106/60; PULSE 80; RESP 16
[2017-11-01 13:30] VITALS: BP 108/62; PULSE 80; RESP 18
== END 2017-11-01 13:30 | disposition home or self-care (01) ==
LOC: INF 11:09
PROVIDERS: Family Provider Family Medicine; PCP Family Medicine; Visit Provider Podiatrist
DX: M86.9 Osteomyelitis, unspecified (principal); E10.8 Type 1 diabetes mellitus with unspecified complications; I73.9 Peripheral vascular disease, unspecified; Z89.511 Acquired absence of right leg below knee
CPT/HCPCS: 96365; 96366; J3370

== ENCOUNTER 2017-11-02 10:45 | Outpatient (CLI) | payer MEDICARE, MEDICAID, SELFPAY ==
[2017-11-02 11:30] VITALS: BP 112/70; PULSE 68; RESP 20; TEMP 36.4; O2SAT 96
[2017-11-02 12:00] VITALS: BP 112/70; PULSE 78; RESP 20; TEMP 37.1; O2SAT 96
[2017-11-02 12:30] VITALS: BP 112/58; PULSE 70; RESP 20; TEMP 36.4; O2SAT 95
[2017-11-02 13:00] VITALS: BP 110/70; PULSE 68; RESP 20; TEMP 36.4; O2SAT 96
[2017-11-02 13:10] VITALS: BP 118/55; PULSE 68; RESP 20; TEMP 36.6; O2SAT 95
[2017-11-02 15:05] VITALS: BP 111/51; PULSE 68; RESP 20; TEMP 36.4; O2SAT 96
--- NOTE | 2017-11-02 15:35 | PC.NURSE ---
wound care to left foot; area on top of foot was debrided by the md this week.
== END 2017-11-02 13:10 | disposition home or self-care (01) ==
LOC: INF 11:36
PROVIDERS: Family Provider Family Medicine; PCP Family Medicine; Visit Provider Podiatrist
DX: M86.9 Osteomyelitis, unspecified (principal); E10.8 Type 1 diabetes mellitus with unspecified complications; I73.9 Peripheral vascular disease, unspecified; Z89.511 Acquired absence of right leg below knee
CPT/HCPCS: 96365; 96366; G0463; J3370

== ENCOUNTER 2017-11-03 10:51 | Outpatient (CLI) | payer MEDICARE, MEDICAID, SELFPAY ==
[2017-11-03 11:12] VITALS: BMI 25.6
[2017-11-03 11:13] VITALS: BP 120/59; PULSE 72; RESP 18; TEMP 36.7; O2SAT 93
[2017-11-03 13:30] VITALS: BP 120/59; PULSE 72; RESP 18; TEMP 36.7; O2SAT 93
== END 2017-11-03 13:30 | disposition home or self-care (01) ==
LOC: INF 10:53
PROVIDERS: Family Provider Family Medicine; PCP Family Medicine; Visit Provider Podiatrist
DX: M86.9 Osteomyelitis, unspecified (principal); E10.8 Type 1 diabetes mellitus with unspecified complications; I73.9 Peripheral vascular disease, unspecified; Z89.511 Acquired absence of right leg below knee
CPT/HCPCS: 96365; 96366; J3370

== ENCOUNTER 2017-11-04 11:02 | Outpatient (CLI) | payer MEDICARE, MEDICAID, SELFPAY ==
[2017-11-04 14:25] VITALS: BP 123/54; BP 155/74; PULSE 76; PULSE 77; RESP 14; RESP 16; TEMP 36.7; TEMP 36.9; O2SAT 94
[2017-11-04 14:30] VITALS: PULSE 77; RESP 14; TEMP 36.7; O2SAT 94
== END 2017-11-04 13:30 | disposition home or self-care (01) ==
PROVIDERS: Family Provider Family Medicine; PCP Family Medicine; Visit Provider Podiatrist
DX: M86.9 Osteomyelitis, unspecified (principal); E10.8 Type 1 diabetes mellitus with unspecified complications; I73.9 Peripheral vascular disease, unspecified; Z89.511 Acquired absence of right leg below knee
CPT/HCPCS: 96365; 96366; J3370

== ENCOUNTER 2017-11-05 11:20 | Outpatient (CLI) | payer MEDICARE, MEDICAID, SELFPAY ==
--- NOTE | 2017-11-05 16:14 | PC.NURSE ---
11/05/17@ 1200. pt here today for drsg change to her left foot per md order. pt has completed her last day of iv antibiotics per pharmacy yesterday. picc line still in place to nayan, cristopher cdi and current-picc line flushed using ns and + blood return is noted. pt to f/u with dr. young on sun in clinic and md will decide if pt is truely completed with all iv therapy. if this is the case, pt was instructed to return to out infusion center to have picc line removed.
== END 2017-11-05 12:15 | disposition home or self-care (01) ==
LOC: INF 16:04
PROVIDERS: Family Provider Family Medicine; PCP Family Medicine; Visit Provider Podiatrist
DX: Z48.01 Encounter for change or removal of surgical wound dressing (principal); M86.9 Osteomyelitis, unspecified; E10.8 Type 1 diabetes mellitus with unspecified complications; I73.9 Peripheral vascular disease, unspecified; Z89.511 Acquired absence of right leg below knee
CPT/HCPCS: G0463

== ENCOUNTER 2017-11-07 10:47 | Outpatient (CLI) | payer MEDICARE, MEDICAID, SELFPAY ==
[2017-11-07 11:29] LABS: Alanine Aminotransferase 14 U/L (12-78); Albumin Level 3.1 gm/dL (3.4-5.0); Albumin/Globulin Ratio 0.9 (1.1-1.8); Alkaline Phosphatase 109 U/L (46-116); Anion Gap 7.3 mEq/L (5-15); Aspartate Amino Transferase 9 U/L (15-37); Bilirubin,Total 0.7 mg/dL (0.2-1.0); Blood Urea Nitrogen 9 mg/dL (7-18); C-Reactive Protein 1.7 mg/L (0.0-0.9); Calcium 8.7 mg/dL (8.5-10.1); Carbon Dioxide 31 mmol/L (21.0-32.0); Chloride 105 mmol/L (98-107); Creatinine,Serum 0.79 mg/dL (0.55-1.02); Estimated Glomerular Filt Rate 72 ml/min (>60); GFR (African American) 87 ML/MIN (>60); Globulin 3.3 gm/dl (1.3-3.2); Glucose 228 mg/dL (74-106); Potassium 4.3 mmoL/L (3.5-5.1); Sodium 139 mmol/L (136-145); Total Protein,Serum 6.4 gm/dL (6.4-8.2)
[2017-11-07 11:32] LABS: Basophils # 0.1 K/mm3 (0-0.2); Basophils % 0.8 % (0.1-2.0); Eosinophils # 0.3 K/mm3 (0.0-0.4); Eosinophils % 4.7 % (0.1-12.0); Hematocrit 36.3 % (37.0-47.0); Hemoglobin 11.7 g/dL (12.2-16.2); Lymphocytes # 1.2 K/mm3 (0.7-4.5); Lymphocytes % 19.5 K/mm3 (10-50); Mean Corpuscular HGB Conc 32.2 g/dL (31.8-35.4); Mean Corpuscular Volume 86.9 fl (81-99); Mean Platelet Volume 8.4 fl (7.4-10.4); Monocytes # 0.4 K/mm3 (0.1-1.0); Monocytes % 5.9 % (1.7-9.3); Neutrophils # 4.4 K/mm3 (1.8-7.8); Neutrophils % 69.1 % (37.0-80.0); Platelet Count 221 K/mm3 (142-424); Red Blood Count 4.18 M/mm3 (4.20-5.40); Red Cell Distribution Width 14.5 % (11.5-17.5); White Blood Count 6.3 K/mm3 (4.8-10.8)
[2017-11-07 12:25] LABS: Erythrocyte Sedimentation Rate 20 mm/hr (0-30)
== END 2017-11-07 10:55 | disposition home or self-care (01) ==
LOC: INF 10:48
PROVIDERS: Family Provider Family Medicine; PCP Family Medicine; Visit Provider Podiatrist
DX: Z48.00 Encounter for change or removal of nonsurgical wound dressing (principal); M86.9 Osteomyelitis, unspecified; E10.8 Type 1 diabetes mellitus with unspecified complications; I73.9 Peripheral vascular disease, unspecified; Z89.511 Acquired absence of right leg below knee
CPT/HCPCS: 80053; 85025; 85651; 86140

== ENCOUNTER 2017-11-08 14:25 | Outpatient (CLI) | payer MEDICARE, MEDICAID, SELFPAY | END 2017-11-08 14:40 | disposition home or self-care (01) | LOC: INF 14:32 | PROVIDERS: Family Provider Family Medicine; PCP Family Medicine; Visit Provider Podiatrist | DX: Z45.2 Encounter for adjustment and management of vascular access device (principal) | CPT/HCPCS: G0463 ==

== ENCOUNTER 2017-12-05 14:30 | Outpatient (RCR) | payer MEDICARE, MEDICAID, SELFPAY | END 2017-12-05 14:31 | disposition home or self-care (01) | LOC: PT 14:30 | PROVIDERS: Family Provider Family Medicine; PCP Family Medicine; Visit Provider Podiatrist | DX: Z89.511 Acquired absence of right leg below knee (principal) | CPT/HCPCS: 97162 ==

== ENCOUNTER 2017-12-06 19:14 | Inpatient (IN) ==
[2017-12-06 20:14] LABS: Microscopic, Urine URINE MICROSCOPIC (MICROSCOPIC)
[2017-12-06 20:16] LABS: Appearance,Urine SL CLOUDY (Clear); Bilirubin,Urine Negative (Negative); Blood, Urine Negative (Negative); Color,Urine YELLOW (Yellow); Glucose,Urine (UA) 3+ (Negative); Ketones,Urine Negative (Negative); Leukocyte Esterase,Urine Negative (Negative); PH,Urine 5.5 (5.0-8.5); Protein,Urine Negative (Negative); Specific Gravity, Urine >= 1.030 (1.005-1.030); Urobilinogen,Urine 0.2 EU/dl (0.2)
[2017-12-06 20:23] LABS: Basophils % 0.1 % (0.1-2.0); Eosinophils % 0.3 % (0.1-12.0); Lymphocytes # 0.6 K/mm3 (0.7-4.5); Lymphocytes % 5.4 K/mm3 (10-50); Mean Corpuscular HGB Conc 31.5 g/dL (31.8-35.4); Mean Corpuscular Hemoglobin 28.2 pg (27.0-31.2); Mean Corpuscular Volume 89.3 fl (81-99); Mean Platelet Volume 9.2 fl (7.4-10.4); Monocytes # 0.5 K/mm3 (0.1-1.0); Monocytes % 3.8 % (1.7-9.3); Neutrophils # 10.7 K/mm3 (1.8-7.8); Neutrophils % 90.4 % (37.0-80.0); Platelet Count 220 K/mm3 (142-424); Red Cell Distribution Width 15.2 % (11.5-17.5); White Blood Count 11.8 K/mm3 (4.8-10.8)
[2017-12-06 20:30] LABS: Hemoglobin 7.9 g/dL (12.2-16.2)
[2017-12-06 20:32] LABS: Bacteria,Urine 1+ /lpf; Hyaline Casts,Urine Occasional #/lpf (0); RBC,Urine Occasional #/hpf (0-3)
--- NOTE | 2017-12-06 20:39 | Emergency Department Note ---
ED Disposition Clinical Impression: Renal insufficiency, Amputation of right lower extremity below knee Anemia Qualifiers: Anemia type: other cause Other causes of anemia: other cause, not classified Qualified Code(s): D64.89 - Other specified anemias Hip fracture Qualifiers: Encounter type: initial encounter Fracture type: closed Laterality: right Qualified Code(s): S72.001A - Fracture of unspecified part of neck of right femur, initial encounter for closed fracture Shoulder fracture, right Qualifiers: Encounter type: initial encounter Fracture type: closed Qualified Code(s): S42.91XA - Fracture of right shoulder girdle, part unspecified, initial encounter for closed fracture Diabetes mellitus Qualifiers: Diabetes mellitus type: type 1 Diabetes mellitus complication status: with unspecified complications Qualified Code(s): E10.8 - Type 1 diabetes mellitus with unspecified complications Right femoral shaft fracture Qualifiers: Encounter type: subsequent encounter Fracture type: closed Fracture morphology: unspecified fracture morphology Fracture healing: with delayed healing Qualified Code(s): S72.301G - Unspecified fracture of shaft of right femur, subsequent encounter for closed fracture with delayed healing Disposition: Admitted As Inpatient Condition on Discharge: Good Instructions: DI for Urinary Tract Infection in Children Referrals: Mario Campos MD [Primary Care Provider] - - Critical Care Critical Care Time: No Attestation: On 12/06/17, the high probability of a clinically significant, sudden or life threatening deterioration of the following system(s) required my full and direct attention, intervention and personal management. The time I documented below is in addition to time spent performing reported procedures but includes the following listed in this critical care notation. Medical Decision Making - Medical Records Medical records reviewed: Yes: I reviewed the patient's medical records. - Mian Inquiry Pt receiving controlled substance: No Vital Signs: 12/06/17 19:18 12/06/17 20:44 12/06/17 21:51 Temperature 99.5 F 99.2 F 98.5 F Temperature Source Oral Oral Oral Pulse Rate [Right Radial] 84 92 H 87 Respiratory Rate 16 18 20 Blood Pressure [Right Arm] 114/46 124/53 130/81 Blood Pressure Mean [Right Arm] 68 76 97 Blood Pressure Source [Right Arm] Automatic Cuff Automatic Cuff Automatic Cuff Blood Pressure Position [Right Arm] Sitting Supine Sitting 02 Sat by Pulse Oximetry 93 L 92 L 94 L Oxygen Delivery Method Room Air Room Air Nasal Cannula Oxygen Flow Rate (LPM) 2 12/06/17 21:52 12/06/17 22:17 12/06/17 22:54 Temperature Temperature Source Pulse Rate [Right Radial] 90 78 Respiratory Rate 20 16 Blood Pressure [Right Arm] 130/64 111/49 Blood Pressure Mean [Right Arm] 86 69 Blood Pressure Source [Right Arm] Automatic Cuff Automatic Cuff Blood Pressure Position [Right Arm] Sitting Sitting 02 Sat by Pulse Oximetry 94 L 96 99 Oxygen Delivery Method Nasal Cannula Room Air Oxygen Flow Rate (LPM) 2 2 - Lab Data Lab results reviewed: Yes: I reviewed the patient's lab results. Lab Results 12/06/17 19:55: Urine Color Yellow, Urine Appearance Sl cloudy, Urine pH 5.5, Ur Specific [place] >= 1.030, Urine Protein Negative, Urine Glucose (UA) 3+, Urine Ketones Negative, Urine Blood Negative, Urine Nitrate Negative, Urine Bilirubin Negative, Urine Urobilinogen 0.2, Ur Leukocyte Esterase Negative, Urine RBC Occasional, Urine WBC 3-5, Ur Squamous Epith Cells 10-20, Urine Bacteria 1+, Hyaline Casts Occasional 12/06/17 19:55: WBC 11.8 H, RBC 2.80 L D, Hgb 7.9 L*, Hct 25.0 L, MCV 89.3, MCH 28.2, MCHC 31.5 L, RDW 15.2, Plt Count 220, MPV 9.2, Neut % (Auto) 90.4 H, Lymph % (Auto) 5.4 L, [place] % (Auto) 3.8, Eos % (Auto) 0.3, Baso % (Auto) 0.1, Neut # (Auto) 10.7 H, Lymph # (Auto) 0.6 L, [place] # (Auto) 0.5, Eos # (Auto) 0.0, Baso # (Auto) 0.0, Total Counted 100, Neutrophils % (Manual) 91 H, Lymphocytes % (Manual) 6 L, Monocytes % (Manual) 3, Platelet Estimate Normal, RBC Morphology N ormal 12/06/17 19:55: Sodium 132 L, Potassium 5.2 H, Chloride 100, Carbon Dioxide 23, Anion Gap 14.2, BUN 35 H D, Creatinine 1.65 H D, Estimated Creat Clear 31, Estimated GFR 31 L, Est GFR ( Amer) 37 L D, Glucose 542 H*, Calcium 7.6 L , Total Bilirubin 0.6, AST 14 L, ALT 24, Alkaline Phosphatase 74, Total Protein 5.9 L, Albumin 3.0 L, Globulin 2.9, Albumin/Globulin Ratio 1.0 L 12/06/17 19:55: Lactate 1.6 Result diagrams: 12/06/17 19:55 12/06/17 19:55 Orders (Tests/Meds): ED MEDICATIONS Generic Name Dose Route Start Last Admin Trade Name Freq PRN Reason Stop Dose Admin Sodium Chloride 250 mls @ 25 mls/hr 12/06/17 23:00 Sod Chlor 0.9% 250ml Bag IV 12/07/17 22:59 .Q10H SONALI Sodium Chloride 10 ml 12/06/17 21:45 12/06/17 21:50 Rad-Saline Flush 10ml Syringe IV 01/05/18 21:44 10 ml NEEDED PRN Administration Maintain IV Site Discontinued Medications Generic Name Dose Route Start Last Admin Trade Name Freq PRN Reason Stop Dose Admin Sodium Chloride 1,000 mls @ 999 mls/hr 12/06/17 20:15 12/06/17 20:31 Sod Chlor 0.9% 1000ml Bag IV 12/06/17 21:15 999 mls/hr .Q1H1M SONALI Administration Iopamidol 75 ml 12/06/17 21:45 12/06/17 21:49 [id number]; 50ml Vial IV 12/06/17 21:46 75 ml ONCE ONE Administration Protocol ORDERS Category Date Time Status PRBC [Red Blood Cells] Stat BBK 12/06/17 22:47 Ordered Type and Screen Stat BBK 12/06/17 22:[address] abdomen pelvis w con Stat Cat Scan 12/06/17 20:40 Taken XR hip RT 2-3V w/pelvis Stat Exams 12/06/17 20:40 Taken XR shoulder RT min 2V Stat Exams 12/06/17 22:01 Taken Urinalysis and Microscopic Stat Lab 12/06/17 19:55 Ordered Blood Culture Stat Micro 12/06/17 19:44 Ordered - Radiology Data #1 Image(s): Shoulder, Pelvis, Hip Image Reviewed: Yes I discussed the image results w/the radiologist Preliminary Findings: Abnormal (fx hip and shoulder ) - CT Data CT Scan: Abdomen, Pelvis Time Received: 23:[address] Reviewed: Yes: I have viewed the radiologist's interpretation Preliminary Findings: Abnormal (hip fx ) - Physician Consults Physician Consulted: [email or web address] Reason -: Admission Female Urogenital HPI - General Chief complaint: Urogenital-Female Stated complaint: Femur fx, pneumonia Time Seen by Provider: 12/06/17 20:00 Mode of Arrival: Wheelchair Source of Information: Patient, Medical Record Limitations: Physical Limitations Description of Symptoms (Recalled from ER Triage Doc. by RN): Pt. reports they wanted to admint her yesterday and she didn't want to stay. Pt reports she has been unable to urinate since yesterday, and the pain in her right arm has gotten worse. Pt reports she has not started the antibiotics prescribed yesterday for pneumonia. Pt reports she thinks she dislocated her wound vac on the left foot and that the splint came off of her broken femur today. - History of Present Illness HPI Narrative: pt fell out of wheelchair yesterday with rt femur fx and refused to be admitted - no new trauma today but c/o of rt shoulder pain and weakness - she has copd/tob use/diabetes - she is nonambulatory MD Complaint: other (shoulder pain ) Onset (ago): day(s) Severity: moderate : no Associated symptoms: weakness - Related Data Home Medications Medication Instructions Recorded Confirmed atorvastatin 80 mg tablet 80 mg PO DAILY 30 Days #30 05/24/17 12/06/17 clopidogrel 75 mg tablet 75 mg PO DAILY 30 Days #30 05/24/17 12/06/17 gabapentin 600 mg tablet 600 mg PO TID 05/24/17 12/06/17 omeprazole 20 mg capsule,delayed 20 mg PO DAILY 30 Days #30 05/24/17 12/06/17 release ropinirole 1 mg tablet 1 mg PO HS 30 Days #30 05/24/17 12/06/17 valsartan 160 mg tablet 160 mg PO DAILY 30 Days #30 05/24/17 12/06/17 apixaban 5 mg tablet 5 mg PO BID 07/19/17 12/06/17 Albuterol Sulfate [Albuterol HFA 1 puff INHALATION BID 07/28/17 12/06/17 Inhaler] Hydrocodone/Acetaminophen 1 each PO Q6HP PRN 09/20/17 12/06/17 [Hydrocodone-Acetamin 5-325 mg] sitagliptin 50 mg tablet 50 mg PO DAILY 30 Days #30 10/15/17 12/06/17 insulin aspart U- 100 100 unit/mL 0.04 unit/g of ch2o SUB-Q TID ml 10/22/17 12/06/17 subcutaneous solution levoFLOXacin [Levaquin 750mg 750 mg PO DAILY 12/06/17 12/06/17 tablet] predniSONE [Prednisone 20mg 20 mg PO BID 12/06/17 12/06/17 Tab] Previous Rx's Medication Instructions Recorded diltiazem CD 120 mg 120 mg PO DAILY #90 cap 11/26/17 capsule,extended release 24 hr Hydrocod/Acet 5/325 mg [[place] 1 tab PO Q6HP PRN #10 tab 12/05/17 5/325mg tablet] Allergies Allergy/AdvReac Type Severity Reaction Status Date / Time ibuprofen [IBUPROFEN] Allergy Severe I-HIVES Verified 12/06/17 19:30 aspirin [ASPIRIN] Allergy Unknown Verified 12/06/17 19:30 zolpidem [From AMBIEN] Allergy Unknown Verified 12/06/17 19:30 [facility] History I have reviewed the patient's past medical history: Yes Medical History: Reports:: Asthma, Atrial Fibrillation, Congestive Heart Failure, Chronic Obstructive Pulmonary Disease (COPD), Diabetes Mellitus Type 2, Gastroesophageal Reflux Disease(GERD), Hyperlipidemia, Hypertension, MRSA, Peripheral Artery Disease, Peripheral Vascular Disease Denies:: Cancer, Seizures Other Medical History: Denies: Blood Transfusion Reaction Comment: Positive for smoking Laterality Cases: Left: Lumpectomy, Right: Other Other Surgeries: Yes: Appendectomy, Cardiac Catheterization, Colonoscopy, C- section, EGD, Hysterectomy-Total, Other Amputation: Yes (right bka) Fractures: No Comment: Right BKA, left great toe amputation, left 2nd distal amputation-2017 - Social History Smoking Status: Current every day smoker Tobacco Type: cigarettes # Packs/Day (cigarettes): 1 Alcohol Intake: never Alcohol Intake Frequency:: other Substance Use Type: denies use Occupational Status: retired, disabled Housing: house Household Members: children - Psychiatric History Expresses thoughts of harming self/others: None Suicide Plan Description: No Plan Family Hx:: Diabetes, Cancer, Coronary Artery Disease ROS Obtained: Yes All systems reviewed & no additional complaints - Constitutional Constitutional: Denies fever(s) - Eyes Eyes: Denies change in vision - ENT Ears, Nose, Mouth, and Throat: Denies neck pain - Cardiovascular Cardiovascular: Denies chest pain - Respiratory Respiratory: No cough - Gastrointestinal Gastrointestingal: Denies: abdominal pain - Genitourinary Female Genitourinary: Denies hematuria - Musculoskeletal Musculoskeletal: Reports as per HPI, Reports joint pain, Reports limited range of motion - Integumentary/Breasts Skin/Breast: Denies rash - Neurologic Neurologic: Denies seizure-like activity Physical Exam - General General appearance: in no apparent distress - Head Head exam: normocephalic - Eye Eye exam: Present: PERRL, EOMI - ENT ENT exam: Present: mucous membranes dry - Neck Neck exam: Present: trachea midline - Respiratory Respiratory exam: Present: other (dec bs bilat ). Absent: respiratory distress - Cardiovascular Cardiovascular exam: Present: regular rate, systolic murmur, +S4 - Abdominal Exam Abdominal exam: Present: soft - Extremities Exam Extremities exam: Present: other (pt with ecchymosis and tender rt femur and hip and rt shoulder s/p bka ) - Neurological Exam Neurological exam: Present: alert, CN II-XII intact - Psychiatric Psychiatric exam: Present: normal affect - Skin Skin exam: Absent: rash
[2017-12-06 20:40] LABS: Anion Gap 14.2 mEq/L (5-15); Bilirubin,Total 0.6 mg/dL (0.2-1.0); Calcium 7.6 mg/dL (8.5-10.1); Globulin 2.9 gm/dl (1.3-3.2); Potassium 5.2 mmoL/L (3.5-5.1); Total Protein,Serum 5.9 gm/dL (6.4-8.2)
[2017-12-06 21:16] LABS: Lymphocytes % 6 % (10-50); Monocytes % 3 % (2-9); Neutrophils % 91 % (42-76); Total Cells Counted 100
[2017-12-06 21:18] LABS: RBC Morphology Normal
--- NOTE | 2017-12-07 07:02 | History & Physical Report ---
*Admission Date: 12/06/17 *Chief complaint: right hip/right arm pain *History of present illness: 67 year old female injured in a fall two days ago. Initial eval diagnoses a right femoral shaft fracture. Because patient is not weight bearing on the right leg due to BKA a conservative approach was appropriate. Patient returned to the ER last night with complaint of pain in the right shoulder and right hip. X-rays revealed right hip intertrochanteric fx nad right humeral head fracture. Patient also had significant drop in H/H and required transfusion. She has been admitted and is receiving her second unit of blood this a.m. She reports pain as mild. Pain is more significant with movements of affected joints. Patient is a long time smoker. She lives at home with children. [facility] History I have reviewed the patient's past medical history: Yes Medical History: Reports:: Asthma, Atrial Fibrillation, Chronic Obstructive Pulmonary Disease (COPD), Diabetes Mellitus Type 2, Gastroesophageal Reflux Disease(GERD), Hyperlipidemia, Hypertension, MRSA, Peripheral Artery Disease, Peripheral Vascular Disease Denies:: Cancer, Seizures Other Medical History: Denies: Blood Transfusion Reaction Laterality Cases: Left: Lumpectomy, Right: Other Other Surgeries: Yes: Appendectomy, Cardiac Catheterization, Colonoscopy, C- section, EGD, Hysterectomy-Total, Other Amputation: Yes (right bka) Fractures: No - *Social History Educational Level: Attended High School Smoking Status: Current every day smoker Tobacco Type: cigarettes # Packs/Day (cigarettes): 1 #Yrs smoked (if former smoker): 7 Alcohol Intake: never Alcohol Intake Frequency:: other Substance Use Type: denies use Occupational Status: retired, disabled Housing: house Household Members: children - Psychiatric History Expresses thoughts of harming self/others: None Suicide Plan Description: No Plan *Family Hx:: Diabetes, Cancer, Coronary Artery Disease Review of Systems - Review of Systems Review of systems:: pertinent systems reviewed and negative unless documented below - Constitutional Denies body ache(s), Denies chills, Denies fatigue, Denies fever(s) - *Cardiovascular Denies chest pain, Denies chest pain at rest, Denies shortness of breath, Denies shortness of breath with activity, Denies irregular heart rhythm - *Respiratory Denies change in phlegm color, Denies chest congestion, Denies cough, Denies shortness of breath - *Gastrointestinal Denies abdominal pain - *Musculoskeletal Reports joint pain, Reports limited joint movement, Reports stiffness - *Neurologic Denies abnormal movements, Denies seizure-like activity, Denies loss of vision, Denies memory loss, Denies seizure-like activity Meds Home Medications Medication Instructions Recorded Confirmed Type atorvastatin 80 mg tablet 80 mg PO DAILY 30 Days #30 05/24/17 12/06/17 History clopidogrel 75 mg tablet 75 mg PO DAILY 30 Days #30 05/24/17 12/06/17 History gabapentin 600 mg tablet 600 mg PO TID 05/24/17 12/06/17 History omeprazole 20 mg capsule,delayed 20 mg PO DAILY 30 Days #30 05/24/17 12/06/17 History release ropinirole 1 mg tablet 1 mg PO HS 30 Days #30 05/24/17 12/06/17 History valsartan 160 mg tablet 160 mg PO DAILY 30 Days #30 05/24/17 12/06/17 History apixaban 5 mg tablet 5 mg PO BID 07/19/17 12/06/17 History RX: Albuterol Sulfate [Albuterol 1 puff INHALATION BID 07/28/17 12/06/17 History HFA Inhaler] Hydrocodone/Acetaminophen 1 each PO Q6HP PRN 09/20/17 12/06/17 History [Hydrocodone-Acetamin 5-325 mg] sitagliptin 50 mg tablet 50 mg PO DAILY 30 Days #30 10/15/17 12/06/17 History insulin aspart U- 100 100 unit/mL 0.04 unit/g of ch2o SUB-Q TID ml 10/22/17 12/06/17 History subcutaneous solution levoFLOXacin [Levaquin 750mg 750 mg PO DAILY 12/06/17 12/06/17 History tablet] predniSONE [Prednisone 20mg 20 mg PO BID 12/06/17 12/06/17 History Tab] Allergies Allergy/AdvReac Type Severity Reaction Status Date / Time ibuprofen [IBUPROFEN] Allergy Severe I-HIVES Verified 12/06/17 19:30 aspirin [ASPIRIN] Allergy Unknown Verified 12/06/17 19:30 tramadol Allergy Unknown Verified 12/07/17 05:07 zolpidem [From AMBIEN] Allergy Unknown Verified 12/06/17 19:30 Exam Vital signs and Labs for Last 24 Hours: Temp Pulse Resp BP Pulse Ox 99.4 F 75 16 100/41 93 L 12/07/17 03:35 12/07/17 06:37 12/07/17 04:50 12/07/17 04:50 12/07/17 06:37 Laboratory Results - last 24 hr 12/06/17 19:55: Urine Color Yellow, Urine Appearance Sl cloudy, Urine pH 5.5, Ur Specific [place] >= 1.030, Urine Protein Negative, Urine Glucose (UA) 3+, Urine Ketones Negative, Urine Blood Negative, Urine Nitrate Negative, Urine Bilirubin Negative, Urine Urobilinogen 0.2, Ur Leukocyte Esterase Negative, Urine RBC Occasional, Urine WBC 3-5, Ur Squamous Epith Cells 10-20, Urine Bacteria 1+, Hyaline Casts Occasional 12/06/17 19:55: WBC 11.8 H, RBC 2.80 L D, Hgb 7.9 L*, Hct 25.0 L, MCV 89.3, MCH 28.2, MCHC 31.5 L, RDW 15.2, Plt Count 220, MPV 9.2, Neut % (Auto) 90.4 H, Lymph % (Auto) 5.4 L, [place] % (Auto) 3.8, Eos % (Auto) 0.3, Baso % (Auto) 0.1, Neut # (Auto) 10.7 H, Lymph # (Auto) 0.6 L, [place] # (Auto) 0.5, Eos # (Auto) 0.0, Baso # (Auto) 0.0, Total Counted 100, Neutrophils % (Manual) 91 H, Lymphocytes % (Manual) 6 L, Monocytes % (Manual) 3, Platelet Estimate Normal, RBC Morphology Normal 12/06/17 19:55: Sodium 132 L, Potassium 5.2 H, Chloride 100, Carbon Dioxide 23, Anion Gap 14.2, BUN 35 H D, Creatinine 1.65 H D, Estimated Creat Clear 31, Estimated GFR 31 L, Est GFR ( Amer) 37 L D, Glucose 542 H*, Calcium 7.6 L , Total Bilirubin 0.6, AST 14 L, ALT 24, Alkaline Phosphatase 74, Total Protein 5.9 L, Albumin 3.0 L, Globulin 2.9, Albumin/Globulin Ratio 1.0 L 12/06/17 19:55: Lactate 1.6 12/06/17 23:08: Blood Type O Negative, Antibody Screen Negative, Crossmatch (AHG) See Detail 12/07/17 03:07: Troponin I < 0.02 12/07/17 06:12: POC Glucose 513 H* I & O for Last 24 hours: Intake & Output 12/04/17 12/05/17 12/06/17 12/07/17 11:59 11:59 11:59 11:59 Intake Total 1250 / 1250 Output Total 650 / 650 Balance 600 / 600 Weight 133 lb Radiology Reports for the Last 24 Hours: Suspect nondisplaced fracture of the humeral neck. Consider confirmation with CT. Nondisplaced right intertrochanteric fracture - Constitutional no acute distress, chronically ill appearing - *Routine HEENT Exam Head: Present: normocephalic Eye: Present: EOMI ENT: Present: mucous membranes moist - *Routine Neck Exam Present: supple, full ROM. Absent: carotid bruit - *Routine Respiratory Exam Present: CTA bilaterally - *Routine Cardiovascular Exam Present: RRR, Normal S1, Normal S2 - *Routine Extremities Exam Comments: painful AROM/PROM of right shoulder flex/abduction and elbow flex. Tenderness of right shoulder joint. Ecchymosis along right bicep. Tenderness of right hip greater trochanter. Tenderness over distal femur. No bruising seen along right hip and femur although pain prevented inspection of posterior extremity - *Routine Neurological Exam Present: alert, oriented X3, CN II-XII intact, motor deficit. Absent: sensory deficit Assessment and Plan (1) Anemia due to blood loss, acute Current visit: Yes Status: Acute Category: Medical Code(s): D62 - Acute posthemorrhagic anemia (2) Right femoral shaft fracture Current visit: Yes Status: Acute Qualifiers: Encounter type: subsequent encounter Fracture type: closed Fracture morphology: unspecified fracture morphology Fracture healing: with delayed healing Qualified Code(s): S72.301G - Unspecified fracture of shaft of right femur, subsequent encounter for closed fracture with delayed healing Category: Medical Code(s): S72.301A - Unspecified fracture of shaft of right femur, initial encounter for closed fracture (3) Hip fracture Current visit: Yes Status: Acute Qualifiers: Encounter type: initial encounter Fracture type: closed Laterality: right Qualified Code(s): S72.001A - Fracture of unspecified part of neck of right femur, initial encounter for closed fracture Category: Medical Code(s): S72.009A - Fracture of unspecified part of neck of unspecified femur, initial encounter for closed fracture (4) Peripheral vascular disease Current visit: Yes Status: Acute Category: Medical Code(s): I73.9 - Peripheral vascular disease, unspecified (5) Shoulder fracture, right Current visit: Yes Status: Acute Qualifiers: Encounter type: initial encounter Fracture type: closed Qualified Code(s): S42.91XA - Fracture of right shoulder girdle, part unspecified, initial encounter for closed fracture Category: Medical Code(s): S42.91XA - Fracture of right shoulder girdle, part unspecified, initial encounter for closed fracture (6) Renal insufficiency Current visit: Yes Status: Acute Category: Medical Code(s): N28.9 - Disorder of kidney and ureter, unspecified (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 Current visit: Yes Status: Chronic Category: Surgical Code(s): Z89.511 - Acquired absence of right leg below knee (8) Diabetes Current visit: Yes Status: Chronic Qualifiers: Diabetes mellitus type: type 2 Diabetes mellitus half-way insulin use: with exterminator use Diabetes mellitus complication status: with circulatory complication Diabetes mellitus complication detail: with other circulatory complications Qualified Code(s): E11.59 - Type 2 diabetes mellitus with other circulatory complications; 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 Transfuse 2 units PRBC and repeat h/h 2. Orthopedic consult 3. Discussed SNF placement with patient who is hesitant because she can't play [employer] for money. She believes family would agree to care for her at home
--- NOTE | 2017-12-07 07:40 | Pharmacy Consult Notes ---
[facility] Pharmacy VTE Monitoring - Patient Demographics Admission date: 12/06/17 Report Date: 12/07/17 Time: 07:39 Allergies/Adverse Reactions: Patient Allergies ibuprofen [IBUPROFEN] Allergy (Severe, Verified 12/06/17 19:30) I-HIVES aspirin [ASPIRIN] Allergy (Unknown, Verified 12/06/17 19:30) tramadol Allergy (Unknown, Verified 12/07/17 05:07) zolpidem [From AMBIEN] Allergy (Unknown, Verified 12/06/17 19:30) Height: 1.57 m Weight: 71.696 kg Patient Problems: Current Active Problems Right femoral shaft fracture (Acute) Anemia (Acute) Hip fracture (Acute) Shoulder fracture, right (Acute) Renal insufficiency (Acute) Anemia due to blood loss, acute (Acute) Peripheral vascular disease (Acute) Amputation of right lower extremity below knee (Chronic) Diabetes (Chronic) - VTE Risk Labs: VTE Related Lab Results Hgb 7.9 g/dL (12.2-16.2) L* 12/06/17 19:55 Hct 25.0 % (37.0-47.0) L 12/06/17 19:55 Plt Count 220 K/mm3 (142-424) 12/06/17 19:55 BUN 35 mg/dL (7-18) H D 12/06/17 19:55 Creatinine 1.65 mg/dL (0.55-1.02) H D 12/06/17 19:55 Estimated Creat Clear 31 mL/min (0-300) 12/06/17 19:55 Was VTE Risk Assessment Performed: Yes VTE Score: 11 VTE Risk Level: Moderate Risk Clinical Trial Participant: No - Prophylaxis VTE Prophylaxis Ordered?: Yes Types of VTE Prophylaxis: TEDS Knee High Location of Applied Device: Not Applicable
[2017-12-07 07:41] LABS: Anion Gap 13.9 mEq/L (5-15); Calcium 7.4 mg/dL (8.5-10.1); Potassium 4.9 mmoL/L (3.5-5.1)
[2017-12-07 08:12] LABS: Basophils % 0.1 % (0.1-2.0); Eosinophils % 0.1 % (0.1-12.0); Lymphocytes % 10.2 K/mm3 (10-50); Mean Corpuscular HGB Conc 32.7 g/dL (31.8-35.4); Mean Corpuscular Volume 88.7 fl (81-99); Monocytes # 0.5 K/mm3 (0.1-1.0); Monocytes % 4.7 % (1.7-9.3); Neutrophils # 8.3 K/mm3 (1.8-7.8); Neutrophils % 84.8 % (37.0-80.0); Platelet Count 163 K/mm3 (142-424); Red Blood Count 3.28 M/mm3 (4.20-5.40); Red Cell Distribution Width 14.9 % (11.5-17.5); White Blood Count 9.7 K/mm3 (4.8-10.8)
[2017-12-07 08:13] LABS: Hematocrit 29.1 % (37.0-47.0)
[2017-12-07 08:31] LABS: Hemoglobin 9.5 g/dL (12.2-16.2)
--- NOTE | 2017-12-07 13:11 | Consult Report ---
*Admission Date: 12/06/17 *History of present illness: 67 year old female injured in a fall two days ago. Initial eval diagnoses a righ t femoral shaft fracture. Because patient is not weight bearing on the right leg due to BKA a conservative approach was appropriate. Patient returned to the ER last night with complaint of pain in the right shoulder and right hip. X-rays revealed right hip intertrochanteric fx nad right humeral head fracture. Patient also had significant drop in H/H and required transfusion. She has been admitted and is receiving her second unit of blood this a.m. She reports pain as mild. Pain is more significant with movements of affected joints. Patient is a long time smoker. She lives at home with children. Review of Systems - *Neurologic Denies abnormal movements, Denies seizure-like activity, Denies loss of vision, Denies memory loss, Denies seizure-like activity [facility] History Medical History: Reports:: Asthma, Atrial Fibrillation, Congestive Heart Failure, Chronic Obstructive Pulmonary Disease (COPD), Diabetes Mellitus Type 2, Gastroesophageal Reflux Disease(GERD), Hyperlipidemia, Hypertension, MRSA, Pe ripheral Artery Disease, Peripheral Vascular Disease Denies:: Cancer, Seizures Other Medical History: Denies: Blood Transfusion Reaction Laterality Cases: Left: Lumpectomy, Right: Other Other Surgeries: Yes: Appendectomy, Cardiac Catheterization, Colonoscopy, C- section, EGD, Hysterectomy-Total, Other Amputation: Yes (right bka) Fractures: No - *Social History Educational Level: Attended High School Smoking Status: Current every day smoker Tobacco Type: cigarettes # Packs/Day (cigarettes): 1 #Yrs smoked (if former smoker): 7 Alcohol Intake: never Alcohol Intake Frequency:: other Substance Use Type: denies use Occupational Status: retired, disabled Housing: house Household Members: children - Psychiatric History Expresses thoughts of harming self/others: None Suicide Plan Description: No Plan *Family Hx:: Diabetes, Cancer, Coronary Artery Disease Meds Home Medications Medication Instructions Recorded Confirmed Type atorvastatin 80 mg tablet 80 mg PO DAILY 30 Days #30 05/24/17 12/06/17 History clopidogrel 75 mg tablet 75 mg PO DAILY 30 Days #30 05/24/17 12/06/17 History gabapentin 600 mg tablet 600 mg PO TID 05/24/17 12/06/17 History omeprazole 20 mg capsule,delayed 20 mg PO DAILY 30 Days #30 05/24/17 12/06/17 History release ropinirole 1 mg tablet 1 mg PO HS 30 Days #30 05/24/17 12/06/17 History valsartan 160 mg tablet 160 mg PO DAILY 30 Days #30 05/24/17 12/06/17 History apixaban 5 mg tablet 5 mg PO BID 07/19/17 12/06/17 History Albuterol Sulfate [Albuterol HFA 1 puff INHALATION BID 07/28/17 12/06/17 History Inhaler] Hydrocodone/Acetaminophen 1 each PO Q6HP PRN 09/20/17 12/06/17 History [Hydrocodone-Acetamin 5-325 mg] sitagliptin 50 mg tablet 50 mg PO DAILY 30 Days #30 10/15/17 12/06/17 History insulin aspart U- 100 100 unit/mL 0.04 unit/g of ch2o SUB-Q TID ml 10/22/17 12/06/17 History subcutaneous solution levoFLOXacin [Levaquin 750mg 750 mg PO DAILY 12/06/17 12/06/17 History tablet] predniSONE [Prednisone 20mg 20 mg PO BID 12/06/17 12/06/17 History Tab] Allergies Allergy/AdvReac Type Severity Reaction Status Date / Time ibuprofen [IBUPROFEN] Allergy Severe I-HIVES Verified 12/06/17 19:30 aspirin [ASPIRIN] Allergy Unknown Verified 12/06/17 19:30 tramadol Allergy Unknown Verified 12/07/17 05:07 zolpidem [From AMBIEN] Allergy Unknown Verified 12/06/17 19:30 Exam Vital signs and Labs for Last 24 Hours: Temp Pulse Resp BP Pulse Ox 99.2 F 74 18 121/61 99 12/07/17 07:50 12/07/17 08:00 12/07/17 08:00 12/07/17 07:50 12/07/17 08:00 Laboratory Results - last 24 hr 12/06/17 19:55: Urine Color Yellow, Urine Appearance Sl cloudy, Urine pH 5.5, Ur Specific [place] >= 1.030, Urine Protein Negative, Urine Glucose (UA) 3+, Urine Ketones Negative, Urine Blood Negative, Urine Nitrate Negative, Urine Bilirubin Negative, Urine Urobilinogen 0.2, Ur Leukocyte Esterase Negative, Urine RBC Occasional, Urine WBC 3-5, Ur Squamous Epith Cells 10-20, Urine Bacteria 1+, Hyaline Casts Occasional 12/06/17 19:55: WBC 11.8 H, RBC 2.80 L D, Hgb 7.9 L*, Hct 25.0 L, MCV 89.3, MCH 28.2, MCHC 31.5 L, RDW 15.2, Plt Count 220, MPV 9.2, Neut % (Auto) 90.4 H, Lymph % (Auto) 5.4 L, [place] % (Auto) 3.8, Eos % (Auto) 0.3, Baso % (Auto) 0.1, Neut # (Auto) 10.7 H, Lymph # (Auto) 0.6 L, [place] # (Auto) 0.5, Eos # (Auto) 0.0, Baso # (Auto) 0.0, Total Counted 100, Neutrophils % (Manual) 91 H, Lymphocytes % (Manual) 6 L, Monocytes % (Manual) 3, Platelet Estimate Normal, RBC Morphology Normal 12/06/17 19:55: Sodium 132 L, Potassium 5.2 H, Chloride 100, Carbon Dioxide 23, Anion Gap 14.2, BUN 35 H D, Creatinine 1.65 H D, Estimated Creat Clear 31, Estimated GFR 31 L, Est GFR ( Amer) 37 L D, Glucose 542 H*, Calcium 7.6 L , Total Bilirubin 0.6, AST 14 L, ALT 24, Alkaline Phosphatase 74, Total Protein 5.9 L, Albumin 3.0 L, Globulin 2.9, Albumin/Globulin Ratio 1.0 L 12/06/17 19:55: Lactate 1.6 12/06/17 23:08: Blood Type O Negative, Antibody Screen Negative, Crossmatch ([facility]) See Detail 12/07/17 03:07: Troponin I < 0.02 12/07/17 06:12: POC Glucose 513 H* 12/07/17 06:15: Troponin I < 0.02 12/07/17 06:15: Sodium 136, Potassium 4.9, Chloride 105, Carbon Dioxide 22, Anion Gap 13.9, BUN 34 H, Creatinine 1.34 H, Estimated Creat Clear 45, Estimated GFR 39 L, Est GFR ( Amer) 47 L D, Glucose 484 H*, Calcium 7.4 L, Magnesium 1.7 12/07/17 08:01: WBC 9.7, RBC 3.28 L, Hgb 9.5 L D, Hct 29.1 L, MCV 88.7, MCH 29.0, MCHC 32.7, RDW 14.9, Plt Count 163 D, MPV 10.0, Neut % (Auto) 84.8 H, Lymph % (Auto) 10.2, [place] % (Auto) 4.7, Eos % (Auto) 0.1, Baso % (Auto) 0.1, Neut # (Auto) 8.3 H, Lymph # (Auto) 1.0, [place] # (Auto) 0.5, Eos # (Auto) 0.0, Baso # (Auto) 0.0 12/07/17 11:24: POC Glucose 190 H I & O for Last 24 hours: Intake & Output 12/05/17 12/06/17 12/07/17 12/08/17 11:59 11:59 11:59 11:59 Intake Total 1500 / 1500 Output Total 1950 / 1950 Balance -450 / -450 Weight 158 lb 1 oz 158 lb 1.002 oz Results - Labs Result Diagrams: 12/07/17 20:12 12/07/17 06:15 Labs: Abnormal lab results 12/06/17 12/06/17 12/06/17 Range/Units 19:55 19:55 23:08 WBC 11.8 H (4.8-10.8) K/mm3 RBC 2.80 L D (4.20-5.40) M/mm3 Hgb 7.9 L* (12.2-16.2) g/dL Hct 25.0 L (37.0-47.0) % MCHC 31.5 L (31.8-35.4) g/dL Neut % (Auto) 90.4 H (37.0-80.0) % Lymph % (Auto) 5.4 L (10-50) K/mm3 Neut # (Auto) 10.7 H (1.8-7.8) K/mm3 Lymph # (Auto) 0.6 L (0.7-4.5) K/mm3 Neutrophils % (Manual) 91 H (42-76) % Lymphocytes % (Manual) 6 L (10-50) % Sodium 132 L (136-145) mmol/L Potassium 5.2 H (3.5-5.1) mmoL/L BUN 35 H D (7-18) mg/dL Creatinine 1.65 H D (0.55-1.02) mg/dL Estimated GFR 31 L (>60) ml/min Est GFR ( Amer) 37 L D (>60) ML/MIN Glucose 542 H* (74-106) mg/dL POC Glucose (70-110) Calcium 7.6 L (8.5-10.1) mg/dL AST 14 L (15-37) U/L Total Protein 5.9 L (6.4-8.2) gm/dL Albumin 3.0 L (3.4-5.0) gm/dL Albumin/Globulin Ratio 1.0 L (1.1-1.8) Crossmatch ([facility]) See Detail 12/07/17 12/07/17 12/07/17 Range/Units 06:12 06:15 08:01 WBC (4.8-10.8) K/mm3 RBC 3.28 L (4.20-5.40) M/mm3 Hgb 9.5 L D (12.2-16.2) g/dL Hct 29.1 L (37.0-47.0) % MCHC (31.8-35.4) g/dL Neut % (Auto) 84.8 H (37.0-80.0) % Lymph % (Auto) (10-50) K/mm3 Neut # (Auto) 8.3 H (1.8-7.8) K/mm3 Lymph # (Auto) (0.7-4.5) K/mm3 Neutrophils % (Manual) (42-76) % Lymphocytes % (Manual) (10-50) % Sodium (136-145) mmol/L Potassium (3.5-5.1) mmoL/L BUN 34 H (7-18) mg/dL Creatinine 1.34 H (0.55-1.02) mg/dL Estimated GFR 39 L (>60) ml/min Est GFR ( Amer) 47 L D (>60) ML/MIN Glucose 484 H* (74-106) mg/dL POC Glucose 513 H* (70-110) Calcium 7.4 L (8.5-10.1) mg/dL AST (15-37) U/L Total Protein (6.4-8.2) gm/dL Albumin (3.4-5.0) gm/dL Albumin/Globulin Ratio (1.1-1.8) Crossmatch ([facility]) 12/07/17 Range/Units 11:24 WBC (4.8-10.8) K/mm3 RBC (4.20-5.40) M/mm3 Hgb (12.2-16.2) g/dL Hct (37.0-47.0) % MCHC (31.8-35.4) g/dL Neut % (Auto) (37.0-80.0) % Lymph % (Auto) (10-50) K/mm3 Neut # (Auto) (1.8-7.8) K/mm3 Lymph # (Auto) (0.7-4.5) K/mm3 Neutrophils % (Manual) (42-76) % Lymphocytes % (Manual) (10-50) % Sodium (136-145) mmol/L Potassium (3.5-5.1) mmoL/L BUN (7-18) mg/dL Creatinine (0.55-1.02) mg/dL Estimated GFR (>60) ml/min Est GFR ( Amer) (>60) ML/MIN Glucose (74-106) mg/dL POC Glucose 190 H (70-110) Calcium (8.5-10.1) mg/dL AST (15-37) U/L Total Protein (6.4-8.2) gm/dL Albumin (3.4-5.0) gm/dL Albumin/Globulin Ratio (1.1-1.8) Crossmatch ([facility]) H & H 12/06/17 12/07/17 Range/Units 19:55 08:01 Hgb 7.9 L* 9.5 L D (12.2-16.2) g/dL Hct 25.0 L 29.1 L (37.0-47.0) % All other labs normal. Assessment and Plan (1) Anemia due to blood loss, acute Current visit: Yes Status: Acute Category: Medical Code(s): D62 - Acute posthemorrhagic anemia (2) Right femoral shaft fracture Current visit: Yes Status: Acute Qualifiers: Encounter type: subsequent encounter Fracture type: closed Fracture morphology: unspecified fracture morphology Fracture healing: with delayed healing Qualified Code(s): S72.301G - Unspecified fracture of shaft of right femur, subsequent encounter for closed fracture with delayed healing Category: Medical Code(s): S72.301A - Unspecified fracture of shaft of right femur, initial encounter for closed fracture (3) Hip fracture Current visit: Yes Status: Acute Qualifiers: Encounter type: initial encounter Fracture type: closed Laterality: right Qualified Code(s): S72.001A - Fracture of unspecified part of neck of right femur, initial encounter for closed fracture Category: Medical Code(s): S72.009A - Fracture of unspecified part of neck of unspecified femur, initial encounter for closed fracture (4) Peripheral vascular disease Current visit: Yes Status: Acute Category: Medical Code(s): I73.9 - Peripheral vascular disease, unspecified (5) Shoulder fracture, right Current visit: Yes Status: Acute Qualifiers: Encounter type: initial encounter Fracture type: closed Qualified Code(s): S42.91XA - Fracture of right shoulder girdle, part unspecified, initial encounter for closed fracture Category: Medical Code(s): S42.91XA - Fracture of right shoulder girdle, part unspecified, initial encounter for closed fracture (6) Renal insufficiency Current visit: Yes Status: Acute Category: Medical Code(s): N28.9 - Disorder of kidney and ureter, unspecified (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 Current visit: Yes Status: Chronic Category: Surgical Code(s): Z89.511 - Acquired absence of right leg below knee (8) Diabetes Current visit: Yes Status: Chronic Qualifiers: Diabetes mellitus type: type 2 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 Discussed the diagnosis, natural history and management options in detail including both nonsurgical and surgical. Patient has been nonambulatory for over 6 years and has multiple comorbidities as well as an infective focus in her left foot. All these make her a very high surgical risk. Following a detailed discussion about the pros and cons of operative and nonoperative management, patient elected for nonoperative management. A well-padded sugar tong splint was applied to the right distal femur. Recommend an arm sling for the right shoulder. Continue as needed pain medication, DVT prophylaxis and medical management as per Dr. Campos. All their questions were answered and they verbalized a good understanding. If appropriate from a medical standpoint, she can be discharged and I would like to see her for follow-up in my office in 2 weeks time.
[2017-12-07 13:57] LABS: Hematocrit 27.5 % (37.0-47.0)
[2017-12-07 20:32] LABS: Hematocrit 28.2 % (37.0-47.0)
[2017-12-08 06:24] LABS: Basophils % 0.2 % (0.1-2.0); Eosinophils # 0.1 K/mm3 (0.0-0.4); Hemoglobin 8.2 g/dL (12.2-16.2); Lymphocytes # 1.6 K/mm3 (0.7-4.5); Lymphocytes % 19.7 K/mm3 (10-50); Mean Corpuscular HGB Conc 32.6 g/dL (31.8-35.4); Mean Corpuscular Hemoglobin 28.9 pg (27.0-31.2); Mean Corpuscular Volume 88.6 fl (81-99); Mean Platelet Volume 9.3 fl (7.4-10.4); Monocytes # 0.6 K/mm3 (0.1-1.0); Neutrophils % 72.1 % (37.0-80.0); Platelet Count 156 K/mm3 (142-424); Red Blood Count 2.84 M/mm3 (4.20-5.40); Red Cell Distribution Width 15.2 % (11.5-17.5); White Blood Count 8.3 K/mm3 (4.8-10.8)
[2017-12-08 06:25] LABS: Hematocrit 25.2 % (37.0-47.0)
[2017-12-08 07:32] LABS: Anion Gap 11.2 mEq/L (5-15); Calcium 7.4 mg/dL (8.5-10.1)
[2017-12-08 07:33] LABS: Potassium 5.2 mmoL/L (3.5-5.1)
--- NOTE | 2017-12-08 07:49 | Progress Note ---
Internal Medicine - PN: Subj *Date: 12/08/17 *Time: 07:47 Interval history: Patient is without complaints this a.m. other than she is not fond of the beds. Her pain is controlled. She is agreeable to go to [facility] for rehab. She denies shortness of breath Exam Vital signs and Labs for Last 24 Hours: Temp Pulse Resp BP Pulse Ox 99.1 F 80 20 112/42 85 L 12/08/17 04:00 12/08/17 07:12 12/08/17 04:00 12/08/17 04:00 12/08/17 07:12 Laboratory Results - last 24 hr 12/06/17 23:08: Crossmatch ([facility]) See Detail 12/07/17 06:15: Sodium 136, Potassium 4.9, Chloride 105, Carbon Dioxide 22, Anion Gap 13.9, BUN 34 H, Creatinine 1.34 H, Estimated Creat Clear 45, Estimated GFR 39 L, Est GFR ( Amer) 47 L D, Glucose 484 H*, Calcium 7.4 L, Magnesium 1.7 12/07/17 08:01: WBC 9.7, RBC 3.28 L, Hgb 9.5 L D, Hct 29.1 L, MCV 88.7, MCH 29.0, MCHC 32.7, RDW 14.9, Plt Count 163 D, MPV 10.0, Neut % (Auto) 84.8 H, Lymph % (Auto) 10.2, [place] % (Auto) 4.7, Eos % (Auto) 0.1, Baso % (Auto) 0.1, Neut # (Auto) 8.3 H, Lymph # (Auto) 1.0, [place] # (Auto) 0.5, Eos # (Auto) 0.0, Baso # (Auto) 0.0 12/07/17 11:24: POC Glucose 190 H 12/07/17 13:47: Hgb 9.0 L, Hct 27.5 L 12/07/17 16:32: POC Glucose 324 H* 12/07/17 20:12: Hgb 9.0 L, Hct 28.2 L 12/07/17 21:04: POC Glucose 397 H* 12/08/17 05:30: WBC 8.3, RBC 2.84 L, Hgb 8.2 L, Hct 25.2 L, MCV 88.6, MCH 28.9, MCHC 32.6, RDW 15.2, Plt Count 156, MPV 9.3, Neut % (Auto) 72.1, Lymph % (Auto) 19.7, [place] % (Auto) 7.0, Eos % (Auto) 1.0, Baso % (Auto) 0.2, Neut # (Auto) 6.0, Lymph # (Auto) 1.6, [place] # (Auto) 0.6, Eos # (Auto) 0.1, Baso # (Auto) 0.0 12/08/17 05:30: Sodium 136, Potassium 5.2 H, Chloride 105, Carbon Dioxide 25, An ion Gap 11.2, BUN 35 H, Creatinine 0.97 D, Estimated Creat Clear 60, Estimated GFR 57 L, Est GFR ( Amer) 69 D, Glucose 198 H D, Calcium 7.4 L I & O for Last 24 hours: Intake & Output 12/05/17 12/06/17 12/07/17 12/08/17 11:59 11:59 11:59 11:59 Intake Total 1500 / 1500 Output Total 1950 / 1950 450 / 450 Balance -450 / -450 -450 / -450 Weight 158 lb 1 oz 156 lb 8 oz - Constitutional no acute distress - *Routine Respiratory Exam Present: CTA bilaterally - *Routine Cardiovascular Exam Present: RRR - *Routine Extremities Exam Comments: right leg is splinted Assessment and Plan (1) Anemia due to blood loss, acute Current visit: Yes Status: Acute Category: Medical Code(s): D62 - Acute posthemorrhagic anemia (2) Right femoral shaft fracture Current visit: Yes Status: Acute Qualifiers: Encounter type: subsequent encounter Fracture type: closed Fracture morphology: unspecified fracture morphology Fracture healing: with delayed healing Qualified Code(s): S72.301G - Unspecified fracture of shaft of right femur, subsequent encounter for closed fracture with delayed healing Category: Medical Code(s): S72.301A - Unspecified fracture of shaft of right femur, initial encounter for closed fracture (3) Hip fracture Current visit: Yes Status: Acute Qualifiers: Encounter type: initial encounter Fracture type: closed Laterality: right Qualified Code(s): S72.001A - Fracture of unspecified part of neck of right femur, initial encounter for closed fracture Category: Medical Code(s): S72.009A - Fracture of unspecified part of neck of unspecified femur, initial encounter for closed fracture (4) Peripheral vascular disease Current visit: Yes Status: Acute Category: Medical Code(s): I73.9 - Peripheral vascular disease, unspecified (5) Shoulder fracture, right Current visit: Yes Status: Acute Qualifiers: Encounter type: initial encounter Fracture type: closed Qualified Code(s): S42.91XA - Fracture of right shoulder girdle, part unspecified, initial encounter for closed fracture Category: Medical Code(s): S42.91XA - Fracture of right shoulder girdle, part unspecified, initial encounter for closed fracture (6) Renal insufficiency Current visit: Yes Status: Acute Category: Medical Code(s): N28.9 - Disorder of kidney and ureter, unspecified (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 Current visit: Yes Status: Chronic Category: Surgical Code(s): Z89.511 - Acquired absence of right leg below knee (8) Diabetes Current visit: Yes Status: Chronic Qualifiers: Diabetes mellitus type: type 2 Diabetes mellitus intermediate designer insulin use: with [facility] use Diabetes mellitus complication status: with circulatory complication Diabetes mellitus complication detail: with other circulatory complications Qualified Code(s): E11.59 - Type 2 diabetes mellitus with other circulatory complications; Z79.4 - correction (current) use of insulin Category: Medical Code(s): E11.9 - Type 2 diabetes mellitus without complications - Assessment and plan all Dx Assessment and Plan for all problems:: 1. repeat h/h this afternoon. Transfuse if Hgb<8 2. inform care management of patient preference for [facility]
[2017-12-08 14:33] LABS: Hematocrit 22.9 % (37.0-47.0)
--- NOTE | 2017-12-08 22:11 | Progress Note ---
Subjective Date: 12/08/17 Time: 20:30 Interval history: Patient says she is doing well and reports being comfortable. She says her pain is well controlled. She is eating and drinking well. PN: Obj Ex Vital signs: Temp Pulse Resp BP Pulse Ox 100.0 F H 83 20 139/59 90 L 12/08/17 20:11 12/08/17 20:47 12/08/17 20:11 12/08/17 20:11 12/08/17 20:11 Narrative: Laboratory Results - last 24 hr 12/07/17 21:04: POC Glucose 397 H* 12/08/17 05:30: WBC 8.3, RBC 2.84 L, Hgb 8.2 L, Hct 25.2 L, MCV 88.6, MCH 28.9, MCHC 32.6, RDW 15.2, Plt Count 156, MPV 9.3, Neut % (Auto) 72.1, Lymph % (Auto) 19.7, [place] % (Auto) 7.0, Eos % (Auto) 1.0, Baso % (Auto) 0.2, Neut # (Auto) 6.0, Lymph # (Auto) 1.6, [place] # (Auto) 0.6, Eos # (Auto) 0.1, Baso # (Auto) 0.0 12/08/17 05:30: Sodium 136, Potassium 5.2 H, Chloride 105, Carbon Dioxide 25, Anion Gap 11.2, BUN 35 H, Creatinine 0.97 D, Estimated Creat Clear 60, Estimated GFR 57 L, Est GFR ( Amer) 69 D, Glucose 198 H D, Calcium 7.4 L 12/08/17 06:33: POC Glucose 226 H 12/08/17 11:23: POC Glucose 234 H 12/08/17 14:21: Hgb 8.0 L, Hct 22.9 L* 12/08/17 16:20: POC Glucose 252 H - Constitutional no acute distress - Routine Respiratory Exam Present: CTA bilaterally - Routine Cardiovascular Exam Present: RRR - Routine Abdominal Exam Present: soft - Routine Extremities Exam Comments: Right proximal humerus fracture: She is in an arm sling and appears comfortable. Tender around the right shoulder. She has good range of elbow wrist and finger movements. Distal neurovascular status is intact. Right hip/femur fracture: She is in a sugar tong splint for the femur (she is a right BKA amputee). Tender over the right hip. - Urinary Catheter Management [place] Cath placed during this visit: yes Urethral indwelling: Yes Reason for continuing: Prolonged immobilization Insertion date: 12/06/17 Insertion time: 19:44 Progress Note: A&P (1) Anemia due to blood loss, acute Status: Acute Current Visit: Yes (2) Right femoral shaft fracture Status: Acute Current Visit: Yes (3) Hip fracture Status: Acute Current Visit: Yes (4) Peripheral vascular disease Status: Acute Current Visit: Yes (5) Shoulder fracture, right Status: Acute Current Visit: Yes (6) Renal insufficiency Status: Acute Current Visit: Yes (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 Status: Chronic Current Visit: Yes (8) Diabetes Status: Chronic Current Visit: Yes Assessment and Plan for All Diagnoses:: Reviewed the findings and progress with the patient. Continue the current management. Patient can be discharged from an orthopedic standpoint when medically appropriate. Follow-up in my office in 2 weeks time.
[2017-12-09 06:16] LABS: Basophils % 0.1 % (0.1-2.0); Eosinophils # 0.1 K/mm3 (0.0-0.4); Eosinophils % 1.7 % (0.1-12.0); Hematocrit 24.4 % (37.0-47.0); Lymphocytes # 1.3 K/mm3 (0.7-4.5); Lymphocytes % 21.6 K/mm3 (10-50); Mean Corpuscular HGB Conc 32.7 g/dL (31.8-35.4); Mean Corpuscular Volume 88.8 fl (81-99); Mean Platelet Volume 9.1 fl (7.4-10.4); Monocytes # 0.5 K/mm3 (0.1-1.0); Neutrophils # 4.2 K/mm3 (1.8-7.8); Neutrophils % 68.5 % (37.0-80.0); Platelet Count 147 K/mm3 (142-424); Red Blood Count 2.75 M/mm3 (4.20-5.40); Red Cell Distribution Width 15.1 % (11.5-17.5); White Blood Count 6.1 K/mm3 (4.8-10.8)
[2017-12-09 06:41] LABS: Anion Gap 6.7 mEq/L (5-15); Calcium 7.4 mg/dL (8.5-10.1); Potassium 4.7 mmoL/L (3.5-5.1)
--- NOTE | 2017-12-09 08:18 | Sepsis Event Note ---
Tissue Perfusion Evaluation Sepsis Re-Evaluation Performed: Yes Date Performed: 12/09/17 Time Performed: 08:18 Sepsis Follow-Up: Yes: Respiratory exam, Cardiovascular exam, Capillary refill, Peripheral pulse strength, Peripheral pulse location, Skin exam, Vital Signs Most Recent Vital Signs: Temperature 99.2 F 12/09/17 07:44 Temperature Source Oral 12/09/17 07:44 Pulse Rate 79 12/09/17 07:44 Respiratory Rate 18 12/09/17 07:44 TAR Vitals Timing 1 Hour Post Infusion 12/07/17 07:50 Blood Pressure 113/48 12/09/17 07:44 Blood Pressure Mean 69 12/09/17 07:44 Blood Pressure Source Automatic Cuff 12/09/17 07:44 Blood Pressure Position Supine 12/09/17 07:44 02 Sat by Pulse Oximetry 100 12/09/17 07:44 Oxygen Delivery Method 12/09/17 07:44 Oxygen Flow Rate (LPM) 3 12/09/17 07:44
--- NOTE | 2017-12-09 08:21 | Progress Note ---
Internal Medicine - PN: Subj *Date: 12/09/17 *Time: 08:19 Interval history: This morning patient is pleasant, talkative, oriented. Overnight she spiked high fever, also had tachycardia, blood pressure issues. She has a source of infection in the wound of her left leg and as a result met criteria for severe sepsis. Fluid bolus, antibiotics and other measures have been instituted. Exam Vital signs and Labs for Last 24 Hours: Temp Pulse Resp BP Pulse Ox 99.2 F 79 18 113/48 100 12/09/17 07:44 12/09/17 07:44 12/09/17 07:44 12/09/17 07:44 12/09/17 07:44 Laboratory Results - last 24 hr 12/08/17 11:23: POC Glucose 234 H 12/08/17 14:21: Hgb 8.0 L, Hct 22.9 L* 12/08/17 16:20: POC Glucose 252 H 12/08/17 20:13: POC Glucose 171 H 12/09/17 05:50: WBC 6.1 D, RBC 2.75 L, Hgb 8.0 L, Hct 24.4 L, MCV 88.8, MCH 29.0, MCHC 32.7, RDW 15.1, Plt Count 147, MPV 9.1, Neut % (Auto) 68.5, Lymph % (Auto) 21.6, [place] % (Auto) 8.0, Eos % (Auto) 1.7, Baso % (Auto) 0.1, Neut # (Auto) 4.2, Lymph # (Auto) 1.3, [place] # (Auto) 0.5, Eos # (Auto) 0.1, Baso # (Auto) 0.0 12/09/17 05:50: Sodium 136, Potassium 4.7, Chloride 108 H, Carbon Dioxide 26, Anion Gap 6.7, BUN 21 H D, Creatinine 0.73 D, Estimated Creat Clear 59, Estimated GFR 79, Est GFR ( Amer) 96 D, Glucose 161 H, Calcium 7.4 L 12/09/17 05:54: POC Glucose 178 H I & O for Last 24 hours: Intake & Output 12/06/17 12/07/17 12/08/17 12/09/17 11:59 11:59 11:59 11:59 Intake Total 1500 / 1500 480 / 480 1310 / 1310 Output Total 1950 / 1950 950 / 950 1250 / 1250 Balance -450 / -450 -470 / -470 60 / 60 Weight 158 lb 1 oz 156 lb 8 oz 156 lb 2 oz Microbiology Reports for the Last 24 Hours: Microbiology 12/06/17 19:44 Blood Blood Culture - Preliminary NO GROWTH AFTER 48 HOURS 12/06/17 19:44 Blood Blood Culture - Preliminary NO GROWTH AFTER 48 HOURS Narrative: Patient is awake, alert, vital signs reviewed. Her capillary refill is less than 3 seconds. Pulses in her extremities are normal, distal feet pulses are vastly diminished based on her previous vascular issues and amputations. Wound VAC is draining some serous fluid from the left foot. Anterior lung jensen have rhonchi, heart rate regular. Abdomen is soft. Assessment and Plan (1) Anemia due to blood loss, acute Current visit: Yes Status: Acute Category: Medical Code(s): D62 - Acute posthemorrhagic anemia (2) Right femoral shaft fracture Current visit: Yes Status: Acute Qualifiers: Encounter type: subsequent encounter Fracture type: closed Fracture morphology: unspecified fracture morphology Fracture healing: with delayed healing Qualified Code(s): S72.301G - Unspecified fracture of shaft of right femur, subsequent encounter for closed fracture with delayed healing Category: Medical Code(s): S72.301A - Unspecified fracture of shaft of right femur, initial encounter for closed fracture (3) Hip fracture Current visit: Yes Status: Acute Qualifiers: Encounter type: initial encounter Fracture type: closed Laterality: right Qualified Code(s): S72.001A - Fracture of unspecified part of neck of right femur, initial encounter for closed fracture Category: Medical Code(s): S72.009A - Fracture of unspecified part of neck of unspecified femur, initial encounter for closed fracture (4) Peripheral vascular disease Current visit: Yes Status: Acute Category: Medical Code(s): I73.9 - Peripheral vascular disease, unspecified (5) Shoulder fracture, right Current visit: Yes Status: Acute Qualifiers: Encounter type: initial encounter Fracture type: closed Qualified Code(s): S42.91XA - Fracture of right shoulder girdle, part unspecified, initial encounter for closed fracture Category: Medical Code(s): S42.91XA - Fracture of right shoulder girdle, part unspecified, initial encounter for closed fracture (6) Renal insufficiency Current visit: Yes Status: Acute Category: Medical Code(s): N28.9 - Disorder of kidney and ureter, unspecified (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 Current visit: Yes Status: Chronic Category: Surgical Code(s): Z89.511 - Acquired absence of right leg below knee (8) Diabetes Current visit: Yes Status: Chronic Qualifiers: Diabetes mellitus type: type 2 Diabetes mellitus correction insulin 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 Added vancomycin and Unasyn based on her wound issues and exposure in the hospital and other healthcare facilities. Fluid bolus performed. Continue current care. Follow labs tomorrow. Plan for above problem list per previous notes.
--- NOTE | 2017-12-09 08:34 | Pharmacy Consult Notes ---
- Pharmacy Consult Date: 12/09/17 Time: 08:32 Referring provider: DR. WHITLOCK Reason for Consult:: VANCOMYCIN DOSING Allergies and ADEs:: Allergies Allergy/AdvReac Type Severity Reaction Status Date / Time ibuprofen [IBUPROFEN] Allergy Severe I-HIVES Verified 12/06/17 19:30 aspirin [ASPIRIN] Allergy Unknown Verified 12/06/17 19:30 tramadol Allergy Unknown Verified 12/07/17 05:07 zolpidem [From AMBIEN] Allergy Unknown Verified 12/06/17 19:30 Home Medications:: Home Medications Medication Instructions Recorded Confirmed Type atorvastatin 80 mg tablet 80 mg PO DAILY 30 Days #30 05/24/17 12/06/17 History clopidogrel 75 mg tablet 75 mg PO DAILY 30 Days #30 05/24/17 12/06/17 History gabapentin 600 mg tablet 600 mg PO TID 05/24/17 12/06/17 History omeprazole 20 mg capsule,delayed 20 mg PO DAILY 30 Days #30 05/24/17 12/06/17 History release ropinirole 1 mg tablet 1 mg PO HS 30 Days #30 05/24/17 12/06/17 History valsartan 160 mg tablet 160 mg PO DAILY 30 Days #30 05/24/17 12/06/17 History apixaban 5 mg tablet 5 mg PO BID 07/19/17 12/06/17 History Albuterol Sulfate [Albuterol HFA 1 puff INHALATION BID 07/28/17 12/06/17 History Inhaler] Hydrocodone/Acetaminophen 1 each PO Q6HP PRN 09/20/17 12/06/17 History [Hydrocodone-Acetamin 5-325 mg] sitagliptin 50 mg tablet 50 mg PO DAILY 30 Days #30 10/15/17 12/06/17 History insulin aspart U- 100 100 unit/mL 0.04 unit/g of ch2o SUB-Q TID ml 10/22/17 12/06/17 History subcutaneous solution levoFLOXacin [Levaquin 750mg 750 mg PO DAILY 12/06/17 12/06/17 History tablet] predniSONE [Prednisone 20mg 20 mg PO BID 12/06/17 12/06/17 History Tab] Height: 1.57 m Weight: 73.936 kg Laboratory Results:: Laboratory Results - last 24 hr 12/08/17 11:23: POC Glucose 234 H 12/08/17 14:21: Hgb 8.0 L, Hct 22.9 L* 12/08/17 16:20: POC Glucose 252 H 12/08/17 20:13: POC Glucose 171 H 12/09/17 05:50: WBC 6.1 D, RBC 2.75 L, Hgb 8.0 L, Hct 24.4 L, MCV 88.8, MCH 29.0, MCHC 32.7, RDW 15.1, Plt Count 147, MPV 9.1, Neut % (Auto) 68.5, Lymph % (Auto) 21.6, [place] % (Auto) 8.0, Eos % (Auto) 1.7, Baso % (Auto) 0.1, Neut # (Auto) 4.2, Lymph # (Auto) 1.3, [place] # (Auto) 0.5, Eos # (Auto) 0.1, Baso # (Auto) 0.0 12/09/17 05:50: Sodium 136, Potassium 4.7, Chloride 108 H, Carbon Dioxide 26, Anion Gap 6.7, BUN 21 H D, Creatinine 0.73 D, Estimated Creat Clear 59, Estimated GFR 79, Est GFR ( Amer) 96 D, Glucose 161 H, Calcium 7.4 L 12/09/17 05:54: POC Glucose 178 H Medical History: Reports:: Asthma, Atrial Fibrillation, Congestive Heart Failure, Chronic Obstructive Pulmonary Disease (COPD), Diabetes Mellitus Type 2, Gastroesophageal Reflux Disease(GERD), Hyperlipidemia, Hypertension, MRSA, Peripheral Artery Disease, Peripheral Vascular Disease Denies:: Cancer, Seizures Assessment and Plan (1) Anemia due to blood loss, acute Current visit: Yes Status: Acute Category: Medical Code(s): D62 - Acute posthemorrhagic anemia (2) Right femoral shaft fracture Current visit: Yes Status: Acute Qualifiers: Encounter type: subsequent encounter Fracture type: closed Fracture morphology: unspecified fracture morphology Fracture healing: with delayed healing Qualified Code(s): S72.301G - Unspecified fracture of shaft of right femur, subsequent encounter for closed fracture with delayed healing Category: Medical Code(s): S72.301A - Unspecified fracture of shaft of right femur, initial encounter for closed fracture (3) Hip fracture Current visit: Yes Status: Acute Qualifiers: Encounter type: initial encounter Fracture type: closed Laterality: right Qualified Code(s): S72.001A - Fracture of unspecified part of neck of right femur, initial encounter for closed fracture Category: Medical Code(s): S72.009A - Fracture of unspecified part of neck of unspecified femur, initial encounter for closed fracture (4) Peripheral vascular disease Current visit: Yes Status: Acute Category: Medical Code(s): I73.9 - Peripheral vascular disease, unspecified (5) Shoulder fracture, right Current visit: Yes Status: Acute Qualifiers: Encounter type: initial encounter Fracture type: closed Qualified Code(s): S42.91XA - Fracture of right shoulder girdle, part unspecified, initial encounter for closed fracture Category: Medical Code(s): S42.91XA - Fracture of right shoulder girdle, part unspecified, initial encounter for closed fracture (6) Renal insufficiency Current visit: Yes Status: Acute Category: Medical Code(s): N28.9 - Disorder of kidney and ureter, unspecified (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 Current visit: Yes Status: Chronic Category: Surgical Code(s): Z89.511 - Acquired absence of right leg below knee (8) Diabetes Current visit: Yes Status: Chronic Qualifiers: Diabetes mellitus type: type 2 Diabetes mellitus care home insulin use: with care home use Diabetes mellitus complication status: with circulatory complication Diabetes mellitus complication detail: with other circulatory complications Qualified Code(s): E11.59 - Type 2 diabetes mellitus with other circulatory complications; Z79.4 - residential (current) use of insulin Category: Medical Code(s): E11.9 - Type 2 diabetes mellitus without complications (9) Sepsis Current visit: Yes Status: Acute Category: Medical Code(s): A41.9 - Sepsis, unspecified organism - Assessment and plan all Dx Assessment and Plan for all problems:: BASED ON PATIENT FACTORS, RECOMMEND VANCOMYCIN 1500 MG IV ONCE, FOLLOWED BY VANCOMYCIN 1 GM IV Q12H. PHARMACY WILL FOLLOW DAILY AND ADJUST APPROPRIATE.
[2017-12-10 06:28] LABS: Anion Gap 8.5 mEq/L (5-15); Basophils % 0.2 % (0.1-2.0); Calcium 7.2 mg/dL (8.5-10.1); Eosinophils # 0.1 K/mm3 (0.0-0.4); Eosinophils % 1.5 % (0.1-12.0); Lymphocytes # 0.7 K/mm3 (0.7-4.5); Mean Corpuscular HGB Conc 32.6 g/dL (31.8-35.4); Mean Corpuscular Hemoglobin 28.9 pg (27.0-31.2); Mean Corpuscular Volume 88.5 fl (81-99); Mean Platelet Volume 9.3 fl (7.4-10.4); Monocytes # 0.5 K/mm3 (0.1-1.0); Monocytes % 6.6 % (1.7-9.3); Neutrophils # 6.2 K/mm3 (1.8-7.8); Neutrophils % 82.7 % (37.0-80.0); Platelet Count 173 K/mm3 (142-424); Potassium 4.5 mmoL/L (3.5-5.1); Red Blood Count 2.67 M/mm3 (4.20-5.40); Red Cell Distribution Width 15.2 % (11.5-17.5); White Blood Count 7.6 K/mm3 (4.8-10.8)
[2017-12-10 06:44] LABS: Hematocrit 23.6 % (37.0-47.0); Hemoglobin 7.7 g/dL (12.2-16.2)
--- NOTE | 2017-12-10 07:01 | Progress Note ---
Internal Medicine - PN: Subj *Date: 12/10/17 *Time: 06:58 Interval history: Patient spiked another fever yesterday evening despite being on broad-spectrum antibiotics. Patient reports feeling well this morning she denies chest pain or abdominal pain. She was unaware that she had a fever she has mitts usually she will get chills with any fevers. Exam Vital signs and Labs for Last 24 Hours: Temp Pulse Resp BP Pulse Ox 100.0 F H 92 H 22 109/36 94 L 12/10/17 04:07 12/10/17 06:23 12/10/17 04:07 12/10/17 04:07 12/10/17 06:23 Laboratory Results - last 24 hr 12/09/17 05:54: POC Glucose 178 H 12/09/17 11:19: POC Glucose 216 H 12/09/17 16:36: POC Glucose 171 H 12/09/17 20:48: POC Glucose 200 H 12/10/17 06:10: WBC 7.6, RBC 2.67 L, Hgb 7.7 L*, Hct 23.6 L*, MCV 88.5, MCH 28.9, MCHC 32.6, RDW 15.2, Plt Count 173, MPV 9.3, Neut % (Auto) 82.7 H, Lymph % (Auto) 9.0 L, [place] % (Auto) 6.6, Eos % (Auto) 1.5, Baso % (Auto) 0.2, Neut # (Auto) 6.2, Lymph # (Auto) 0.7, [place] # (Auto) 0.5, Eos # (Auto) 0.1, Baso # (Auto) 0.0 12/10/17 06:10: Sodium 139, Potassium 4.5, Chloride 107, Carbon Dioxide 28, Anion Gap 8.5, BUN 11 D, Creatinine 0.63, Estimated Creat Clear 62, Estimated GFR 94, Est GFR ( Amer) 113, Glucose 113 H, Calcium 7.2 L 12/10/17 06:16: POC Glucose 116 H I & O for Last 24 hours: Intake & Output 12/07/17 12/08/17 12/09/17 12/10/17 11:59 11:59 11:59 11:59 Intake Total 1500 / 1500 480 / 480 1550 / 1550 938 / 938 Output Total 1950 / 1949 950 / 950 1750 / 1750 1850 / 1850 Balance -450 / -450 -470 / -470 -200 / -200 -912 / -912 Weight 158 lb 1 oz 156 lb 8 oz 163 lb 163 lb 3 oz Narrative: Patient is in no distress. Lung exam reveals some adventitious sounds and some faint left basilar rales. Heart has a regular rate and rhythm. Abdomen is soft, nontender. Right arm is in a sling. Right lower extremity is splinted Assessment and Plan (1) Anemia due to blood loss, acute Current visit: Yes Status: Acute Category: Medical Code(s): D62 - Acute posthemorrhagic anemia (2) Right femoral shaft fracture Current visit: Yes Status: Acute Qualifiers: Encounter type: subsequent encounter Fracture type: closed Fracture morphology: unspecified fracture morphology Fracture healing: with delayed healing Qualified Code(s): S72.301G - Unspecified fracture of shaft of right femur, subsequent encounter for closed fracture with delayed healing Category: Medical Code(s): S72.301A - Unspecified fracture of shaft of right femur, initial encounter for closed fracture (3) Hip fracture Current visit: Yes Status: Acute Qualifiers: Encounter type: initial encounter Fracture type: closed Laterality: right Qualified Code(s): S72.001A - Fracture of unspecified part of neck of right femur, initial encounter for closed fracture Category: Medical Code(s): S72.009A - Fracture of unspecified part of neck of unspecified femur, initial encounter for closed fracture (4) Peripheral vascular disease Current visit: Yes Status: Acute Category: Medical Code(s): I73.9 - Peripheral vascular disease, unspecified (5) Shoulder fracture, right Current visit: Yes Status: Acute Qualifiers: Encounter type: initial encounter Fracture type: closed Qualified Code(s): S42.91XA - Fracture of right shoulder girdle, part unspecified, initial encounter for closed fracture Category: Medical Code(s): S42.91XA - Fracture of right shoulder girdle, part unspecified, initial encounter for closed fracture (6) Renal insufficiency Current visit: Yes Status: Acute Category: Medical Code(s): N28.9 - Disorder of kidney and ureter, unspecified (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 Current visit: Yes Status: Chronic Category: Surgical Code(s): Z89.511 - Acquired absence of right leg below knee (8) Diabetes Current visit: Yes Status: Chronic Qualifiers: Diabetes mellitus type: type 2 Diabetes mellitus 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 Continue broad-spectrum antibiotics while awaiting blood cultures 2. Transfuse 1 unit of packed red blood cells today 3. Care management [facility] for SNF placement. 4. Add incentive spirometry
[2017-12-10 13:05] LABS: Hematocrit 28.2 % (37.0-47.0)
[2017-12-10 13:06] LABS: Hemoglobin 9.4 g/dL (12.2-16.2)
--- NOTE | 2017-12-10 14:21 | Pharmacy Consult Notes ---
- Pharmacy Consult Date: 12/10/17 Time: 14:19 Referring provider: DR. WHITLOCK Reason for Consult:: VANCOMYCIN TROUGH LEVEL Allergies and ADEs:: Allergies Allergy/AdvReac Type Severity Reaction Status Date / Time ibuprofen [IBUPROFEN] Allergy Severe I-HIVES Verified 12/06/17 19:30 aspirin [ASPIRIN] Allergy Unknown Verified 12/06/17 19:30 tramadol Allergy Unknown Verified 12/07/17 05:07 zolpidem [From AMBIEN] Allergy Unknown Verified 12/06/17 19:30 Home Medications:: Home Medications Medication Instructions Recorded Confirmed Type atorvastatin 80 mg tablet 80 mg PO DAILY 30 Days #30 05/24/17 12/06/17 History clopidogrel 75 mg tablet 75 mg PO DAILY 30 Days #30 05/24/17 12/06/17 History gabapentin 600 mg tablet 600 mg PO TID 05/24/17 12/06/17 History omeprazole 20 mg capsule,delayed 20 mg PO DAILY 30 Days #30 05/24/17 12/06/17 History release ropinirole 1 mg tablet 1 mg PO HS 30 Days #30 05/24/17 12/06/17 History valsartan 160 mg tablet 160 mg PO DAILY 30 Days #30 05/24/17 12/06/17 History apixaban 5 mg tablet 5 mg PO BID 07/19/17 12/06/17 History Albuterol Sulfate [Albuterol HFA 1 puff INHALATION BID 07/28/17 12/06/17 History Inhaler] Hydrocodone/Acetaminophen 1 each PO Q6HP PRN 09/20/17 12/06/17 History [Hydrocodone-Acetamin 5-325 mg] sitagliptin 50 mg tablet 50 mg PO DAILY 30 Days #30 10/15/17 12/06/17 History insulin aspart U- 100 100 unit/mL 0.04 unit/g of ch2o SUB-Q TID ml 10/22/17 12/06/17 History subcutaneous solution levoFLOXacin [Levaquin 750mg 750 mg PO DAILY 12/06/17 12/06/17 History tablet] predniSONE [Prednisone 20mg 20 mg PO BID 12/06/17 12/06/17 History Tab] Height: 1.57 m Weight: 74.021 kg Laboratory Results:: Laboratory Results - last 24 hr 12/09/17 16:36: POC Glucose 171 H 12/09/17 20:48: POC Glucose 200 H 12/10/17 06:10: WBC 7.6, RBC 2.67 L, Hgb 7.7 L*, Hct 23.6 L*, MCV 88.5, MCH 28.9, MCHC 32.6, RDW 15.2, Plt Count 173, MPV 9.3, Neut % (Auto) 82.7 H, Lymph % (Auto) 9.0 L, [place] % (Auto) 6.6, Eos % (Auto) 1.5, Baso % (Auto) 0.2, Neut # (Auto) 6.2, Lymph # (Auto) 0.7, [place] # (Auto) 0.5, Eos # (Auto) 0.1, Baso # (Auto) 0.0 12/10/17 06:10: Sodium 139, Potassium 4.5, Chloride 107, Carbon Dioxide 28, Anion Gap 8.5, BUN 11 D, Creatinine 0.63, Estimated Creat Clear 62, Estimated GFR 94, Est GFR ( Amer) 113, Glucose 113 H, Calcium 7.2 L 12/10/17 06:10: ESR 25 12/10/17 06:16: POC Glucose 116 H 12/10/17 07:20: Blood Type O Negative, Antibody Screen Negative, Crossmatch (AHG) See Detail 12/10/17 11:56: POC Glucose 174 H 12/10/17 12:13: Urine RBC None, Urine WBC 5-10, Ur Squamous Epith Cells 5-10, Urine Bacteria Trace, Urine Yeast 2+ 12/10/17 12:50: Vancomycin Trough 15.0 12/10/17 12:50: Hgb 9.4 L D, Hct 28.2 L Medical History: Reports:: Asthma, Atrial Fibrillation, Congestive Heart Failure, Chronic Obstructive Pulmonary Disease (COPD), Diabetes Mellitus Type 2, Gastroesophageal Reflux Disease(GERD), Hyperlipidemia, Hypertension, MRSA, Peripheral Artery Disease, Peripheral Vascular Disease Denies:: Cancer, Seizures Assessment and Plan (1) Anemia due to blood loss, acute Current visit: Yes Status: Acute Category: Medical Code(s): D62 - Acute posthemorrhagic anemia (2) Right femoral shaft fracture Current visit: Yes Status: Acute Qualifiers: Encounter type: subsequent encounter Fracture type: closed Fracture morphology: unspecified fracture morphology Fracture healing: with delayed healing Qualified Code(s): S72.301G - Unspecified fracture of shaft of right femur, subsequent encounter for closed fracture with delayed healing Category: Medical Code(s): S72.301A - Unspecified fracture of shaft of right femur, initial encounter for closed fracture (3) Hip fracture Current visit: Yes Status: Acute Qualifiers: Encounter type: initial encounter Fracture type: closed Laterality: right Qualified Code(s): S72.001A - Fracture of unspecified part of neck of right femur, initial encounter for closed fracture Category: Medical Code(s): S72.009A - Fracture of unspecified part of neck of unspecified femur, initial encounter for closed fracture (4) Peripheral vascular disease Current visit: Yes Status: Acute Category: Medical Code(s): I73.9 - Peripheral vascular disease, unspecified (5) Shoulder fracture, right Current visit: Yes Status: Acute Qualifiers: Encounter type: initial encounter Fracture type: closed Qualified Code(s): S42.91XA - Fracture of right shoulder girdle, part unspecified, initial encounter for closed fracture Category: Medical Code(s): S42.91XA - Fracture of right shoulder girdle, part unspecified, initial encounter for closed fracture (6) Renal insufficiency Current visit: Yes Status: Acute Category: Medical Code(s): N28.9 - Disorder of kidney and ureter, unspecified (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 Current visit: Yes Status: Chronic Category: Surgical Code(s): Z89.511 - Acquired absence of right leg below knee (8) Diabetes Current visit: Yes Status: Chronic Qualifiers: Diabetes mellitus type: type 2 Diabetes mellitus 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 tank terminal 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 use Diabetes mellitus complication status: with circulatory complication Diabetes mellitus complication detail: with other circulatory complications Qualified Code(s): E11.59 - Type 2 diabetes mellitus with other circulatory complications; Z79.4 - buttermaker continuous churn (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 PHARMACY WILL CONTINUE TO MONITOR AND WILL ADJUST DOSE APPROPRIATE. -SARAH GARRETT, АНДРЕЙD
--- NOTE | 2017-12-10 16:16 | Progress Note ---
Subjective Date: 12/10/17 Time: 15:45 PN: Obj Ex Vital signs: Temp Pulse Resp BP Pulse Ox 103.2 F H 117 H 18 124/44 92 L 12/10/17 15:55 12/10/17 15:55 12/10/17 15:55 12/10/17 15:55 12/10/17 15:55 Narrative: Laboratory Results - last 24 hr 12/09/17 16:36: POC Glucose 171 H 12/09/17 20:48: POC Glucose 200 H 12/10/17 06:10: WBC 7.6, RBC 2.67 L, Hgb 7.7 L*, Hct 23.6 L*, MCV 88.5, MCH 28.9, MCHC 32.6, RDW 15.2, Plt Count 173, MPV 9.3, Neut % (Auto) 82.7 H, Lymph % (Auto) 9.0 L, [place] % (Auto) 6.6, Eos % (Auto) 1.5, Baso % (Auto) 0.2, Neut # (Auto) 6.2, Lymph # (Auto) 0.7, [place] # (Auto) 0.5, Eos # (Auto) 0.1, Baso # (Auto) 0.0 12/10/17 06:10: Sodium 139, Potassium 4.5, Chloride 107, Carbon Dioxide 28, Anion Gap 8.5, BUN 11 D, Creatinine 0.63, Estimated Creat Clear 62, Estimated GFR 94, Est GFR ( Amer) 113, Glucose 113 H, Calcium 7.2 L 12/10/17 06:10: ESR 25 12/10/17 06:16: POC Glucose 116 H 12/10/17 07:20: Blood Type O Negative, Antibody Screen Negative, Crossmatch (AHG) See Detail 12/10/17 11:56: POC Glucose 174 H 12/10/17 12:13: Urine RBC None, Urine WBC 5-10, Ur Squamous Epith Cells 5-10, Urine Bacteria Trace, Urine Yeast 2+ 12/10/17 12:50: Vancomycin Trough 15.0 12/10/17 12:50: Hgb 9.4 L D, Hct 28.2 L - Urinary Catheter Management [place] Cath placed during this visit: yes Urethral indwelling: Yes Insertion date: 12/06/17 Insertion time: 19:44 Progress Note: A&P (1) Anemia due to blood loss, acute Status: Acute Current Visit: Yes (2) Right femoral shaft fracture Status: Acute Current Visit: Yes (3) Hip fracture Status: Acute Current Visit: Yes (4) Peripheral vascular disease Status: Acute Current Visit: Yes (5) Shoulder fracture, right Status: Acute Current Visit: Yes (6) Renal insufficiency Status: Acute Current Visit: Yes (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 Status: Chronic Current Visit: Yes (8) Diabetes Status: Chronic Current Visit: Yes (9) Sepsis Status: Acute Current Visit: Yes
[2017-12-11 06:14] LABS: Basophils % 0.2 % (0.1-2.0); Eosinophils # 0.1 K/mm3 (0.0-0.4); Eosinophils % 1.2 % (0.1-12.0); Hematocrit 26.8 % (37.0-47.0); Hemoglobin 8.9 g/dL (12.2-16.2); Lymphocytes # 0.8 K/mm3 (0.7-4.5); Mean Corpuscular HGB Conc 33.4 g/dL (31.8-35.4); Mean Corpuscular Hemoglobin 29.8 pg (27.0-31.2); Mean Corpuscular Volume 89.2 fl (81-99); Mean Platelet Volume 9.3 fl (7.4-10.4); Monocytes # 0.9 K/mm3 (0.1-1.0); Monocytes % 9.8 % (1.7-9.3); Neutrophils # 7.7 K/mm3 (1.8-7.8); Neutrophils % 80.8 % (37.0-80.0); Platelet Count 175 K/mm3 (142-424); Red Cell Distribution Width 15.1 % (11.5-17.5); White Blood Count 9.5 K/mm3 (4.8-10.8)
[2017-12-11 06:16] LABS: Anion Gap 9.2 mEq/L (5-15); Potassium 4.2 mmoL/L (3.5-5.1)
[2017-12-11 06:30] LABS: Calcium 6.8 mg/dL (8.5-10.1)
--- NOTE | 2017-12-11 07:02 | Progress Note ---
Internal Medicine - PN: Marleni *Date: 12/11/17 *Time: 07:00 Interval history: Patient developed diarrhea yesterday which triggered lab order for a diarrhea panel. Patient's diarrhea panel was positive for C. difficile. She had fevers throughout most of the late morning and afternoon as high as 103. Blood cultures are negative. Patient became mildly hypotensive overnight and is receiving fluid boluses. This morning she denies chest pain, shortness of breath, abdominal pain. Exam Vital signs and Labs for Last 24 Hours: Temp Pulse Resp BP Pulse Ox 101.3 F H 86 16 90/35 95 12/11/17 04:00 12/11/17 06:08 12/11/17 04:00 12/11/17 04:00 12/11/17 04:00 Laboratory Results - last 24 hr 12/10/17 06:10: ESR 25 12/10/17 07:20: Blood Type O Negative, Antibody Screen Negative, Crossmatch (AHG) See Detail 12/10/17 11:56: POC Glucose 174 H 12/10/17 12:13: Urine Color Yellow, Urine Appearance Clear, Urine pH 5.5, Ur Specific [place] 1.025, Urine Protein Negative, Urine Glucose (UA) Negative, Urine Ketones Negative, Urine Blood Negative, Urine Nitrate Negative, Urine Bilirubin Negative, Urine Urobilinogen 0.2, Ur Leukocyte Esterase Negative, Urine RBC None, Urine WBC 5-10, Ur Squamous Epith Cells 5-10, Urine Bacteria Trace, Urine Yeast 2+ 12/10/17 12:50: Vancomycin Trough 15.0 12/10/17 12:50: Hgb 9.4 L D, Hct 28.2 L 12/10/17 17:29: POC Glucose 184 H 12/10/17 18:30: Stl Aeromonas (PCR) Not detected, Stl C. cayetanensis PCR Not detected, Stool Rotavirus (PCR) Not detected, Stl Adenov F 40/41 PCR Not detected, Stool Astrovirus (PCR) Not detected, Stool Campylobacter PCR Not detected, Stl C.difficile Tox PCR Detected A, Stool Cryptosporidium PCR Not detected, Stl E.coli Shiga Tox PCR Not detected, Stool E coli O157 PCR Not detected, Stl Enterotoxigenic E PCR Not detected, Stool EPEC (PCR) Not detected, Stool EAEC (PCR) Not detected, Stl E. histolytica PCR Not detected, Stool Giardia Lamblia PCR Not detected, Stool Salmonella PCR Not detected, Stool Sapovirus (PCR) Not detected, Stl P. shigelloides PCR Not detected, Stl Shigella/EIEC PCR Not detected, St Y.enterocolitica PCR Not detected, Stool Vibrio (PCR) Not detected, Stl Vibrio cholerae PCR Not detected, Stl Norovirus GI/GII PCR Not detected 12/10/17 22:57: POC Glucose 188 H 12/11/17 05:44: WBC 9.5, RBC 3.00 L, Hgb 8.9 L, Hct 26.8 L, MCV 89.2, MCH 29.8, MCHC 33.4, RDW 15.1, Plt Count 175, MPV 9.3, Neut % (Auto) 80.8 H, Lymph % (Auto) 8.0 L, [place] % (Auto) 9.8 H, Eos % (Auto) 1.2, Baso % (Auto) 0.2, Neut # (Auto) 7.7, Lymph # (Auto) 0.8, [place] # (Auto) 0.9, Eos # (Auto) 0.1, Baso # (Auto) 0.0 12/11/17 05:44: Sodium 139, Potassium 4.2, Chloride 106, Carbon Dioxide 28, Anion Gap 9.2, BUN 14 D, Creatinine 0.91 D, Estimated Creat Clear 62, Estimated GFR 61, Est GFR ( Amer) 74 D, Glucose 119 H, Calcium 6.8 L I & O for Last 24 hours: Intake & Output 12/08/17 12/09/17 12/10/17 12/11/17 11:59 11:59 11:59 11:59 Intake Total 480 / 480 1550 / 1550 1298 / 1298 1277 / 1277 Output Total 950 / 950 1750 / 1750 1850 / 1850 800 / 800 Balance -470 / -470 -200 / -200 -552 / -552 477 / 477 Weight 156 lb 8 oz 163 lb 163 lb 3 oz 163 lb 3 oz Microbiology Reports for the Last 24 Hours: Microbiology 12/08/17 22:35 Blood Blood Culture - Preliminary NO GROWTH AFTER 48 HOURS 12/08/17 22:35 Blood Blood Culture - Preliminary NO GROWTH AFTER 48 HOURS Narrative: Patient is resting and does not appear to be in any distress. Nasal cannula is in place. Patient awakens to tactile stimulus. She is interactive. She is oriented. Lungs have diminished breath sounds at the base. Heart has a regular rate and 1. Abdomen is nontender. Dressing on wound VAC is in place. Assessment and Plan (1) Anemia due to blood loss, acute Current visit: Yes Status: Acute Category: Medical Code(s): D62 - Acute posthemorrhagic anemia (2) Right femoral shaft fracture Current visit: Yes Status: Acute Qualifiers: Encounter type: subsequent encounter Fracture type: closed Fracture morphology: unspecified fracture morphology Fracture healing: with delayed healing Qualified Code(s): S72.301G - Unspecified fracture of shaft of right femur, subsequent encounter for closed fracture with delayed healing Category: Medical Code(s): S72.301A - Unspecified fracture of shaft of right femur, initial encounter for closed fracture (3) Hip fracture Current visit: Yes Status: Acute Qualifiers: Encounter type: initial encounter Fracture type: closed Laterality: right Qualified Code(s): S72.001A - Fracture of unspecified part of neck of right femur, initial encounter for closed fracture Category: Medical Code(s): S72.009A - Fracture of unspecified part of neck of unspecified femur, initial encounter for closed fracture (4) Peripheral vascular disease Current visit: Yes Status: Acute Category: Medical Code(s): I73.9 - Peripheral vascular disease, unspecified (5) Shoulder fracture, right Current visit: Yes Status: Acute Qualifiers: Encounter type: initial encounter Fracture type: closed Qualified Code(s): S42.91XA - Fracture of right shoulder girdle, part unspecified, initial encounter for closed fracture Category: Medical Code(s): S42.91XA - Fracture of right shoulder girdle, part unspecified, initial encounter for closed fracture (6) Renal insufficiency Current visit: Yes Status: Acute Category: Medical Code(s): N28.9 - Disorder of kidney and ureter, unspecified (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 Current visit: Yes Status: Chronic Category: Surgical Code(s): Z89.511 - Acquired absence of right leg below knee (8) Diabetes Current visit: Yes Status: Chronic Qualifiers: Diabetes mellitus type: type 2 Diabetes mellitus 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 difficile diarrhea Current visit: Yes Status: Acute Category: Medical Code(s): A04.72 - Enterocolitis due to Clostridium difficile, not specified as recurrent - Assessment and plan all Dx Assessment and Plan for all problems:: 1. Repeat H&H this afternoon, diffuse if hemoglobin drops below 8 2. Metronidazole has been started for recent C. difficile diarrhea 3. Continue IV fluids. 4. Hold antihypertensive
--- NOTE | 2017-12-11 08:20 | Progress Note ---
Internal Medicine - PN: Subj *Date: 12/11/17 *Time: 08:20 Exam Vital signs and Labs for Last 24 Hours: Temp Pulse Resp BP Pulse Ox 101.3 F H 86 16 90/35 95 12/11/17 04:00 12/11/17 06:08 12/11/17 04:00 12/11/17 04:00 12/11/17 04:00 Laboratory Results - last 24 hr 12/10/17 06:10: ESR 25 12/10/17 07:20: Blood Type O Negative, Antibody Screen Negative, Crossmatch (AHG) See Detail 12/10/17 11:56: POC Glucose 174 H 12/10/17 12:13: Urine Color Yellow, Urine Appearance Clear, Urine pH 5.5, Ur Specific [place] 1.025, Urine Protein Negative, Urine Glucose (UA) Negative, Urine Ketones Negative, Urine Blood Negative, Urine Nitrate Negative, Urine Bilirubin Negative, Urine Urobilinogen 0.2, Ur Leukocyte Esterase Negative, Urine RBC None, Urine WBC 5-10, Ur Squamous Epith Cells 5-10, Urine Bacteria Trace, Urine Yeast 2+ 12/10/17 12:50: Vancomycin Trough 15.0 12/10/17 12:50: Hgb 9.4 L D, Hct 28.2 L 12/10/17 17:29: POC Glucose 184 H 12/10/17 18:30: Stl Aeromonas (PCR) Not detected, Stl C. cayetanensis PCR Not detected, Stool Rotavirus (PCR) Not detected, Stl Adenov F 40/41 PCR Not detected, Stool Astrovirus (PCR) Not detected, Stool Campylobacter PCR Not detected, Stl C.difficile Tox PCR Detected A, Stool Cryptosporidium PCR Not detected, Stl E.coli Shiga Tox PCR Not detected, Stool E coli O157 PCR Not detected, Stl Enterotoxigenic E PCR Not detected, Stool EPEC (PCR) Not detected, Stool EAEC (PCR) Not detected, Stl E. histolytica PCR Not detected, Stool Giardia Lamblia PCR Not detected, Stool Salmonella PCR Not detected, Stool Sapovirus (PCR) Not detected, Stl P. shigelloides PCR Not detected, Stl Shigella/EIEC PCR Not detected, St Y.enterocolitica PCR Not detected, Stool Vibrio (PCR) Not detected, Stl Vibrio cholerae PCR Not detected, Stl Norovirus GI/GII PCR Not detected 12/10/17 22:57: POC Glucose 188 H 12/11/17 05:44: WBC 9.5, RBC 3.00 L, Hgb 8.9 L, Hct 26.8 L, MCV 89.2, MCH 29.8, MCHC 33.4, RDW 15.1, Plt Count 175, MPV 9.3, Neut % (Auto) 80.8 H, Lymph % (Auto) 8.0 L, [place] % (Auto) 9.8 H, Eos % (Auto) 1.2, Baso % (Auto) 0.2, Neut # (Auto) 7.7, Lymph # (Auto) 0.8, [place] # (Auto) 0.9, Eos # (Auto) 0.1, Baso # (Auto) 0.0 12/11/17 05:44: Sodium 139, Potassium 4.2, Chloride 106, Carbon Dioxide 28, Anion Gap 9.2, BUN 14 D, Creatinine 0.91 D, Estimated Creat Clear 62, Estimated GFR 61, Est GFR ( Amer) 74 D, Glucose 119 H, Calcium 6.8 L 12/11/17 07:01: POC Glucose 133 H I & O for Last 24 hours: Intake & Output 12/08/17 12/09/17 12/10/17 12/11/17 23:59 23:59 23:59 23:59 Intake Total 1440 / 1440 1528 / 1528 1637 / 1637 643 / 643 Output Total 1400 / 1400 2400 / 2400 1550 / 1550 Balance 40 / 40 -872 / -872 87 / 87 643 / 643 Weight 70.987 kg 73.936 kg 74.021 kg Microbiology Reports for the Last 24 Hours: Microbiology 12/08/17 22:35 Blood Blood Culture - Preliminary NO GROWTH AFTER 48 HOURS 12/08/17 22:35 Blood Blood Culture - Preliminary NO GROWTH AFTER 48 HOURS Assessment and Plan (1) Anemia due to blood loss, acute Current visit: Yes Status: Acute Category: Medical Code(s): D62 - Acute posthemorrhagic anemia (2) Right femoral shaft fracture Current visit: Yes Status: Acute Qualifiers: Encounter type: subsequent encounter Fracture type: closed Fracture morphology: unspecified fracture morphology Fracture healing: with delayed healing Qualified Code(s): S72.301G - Unspecified fracture of shaft of right femur, subsequent encounter for closed fracture with delayed healing Category: Medical Code(s): S72.301A - Unspecified fracture of shaft of right femur, initial encounter for closed fracture (3) Hip fracture Current visit: Yes Status: Acute Qualifiers: Encounter type: initial encounter Fracture type: closed Laterality: right Qualified Code(s): S72.001A - Fracture of unspecified part of neck of right femur, initial encounter for closed fracture Category: Medical Code(s): S72.009A - Fracture of unspecified part of neck of unspecified femur, initial encounter for closed fracture (4) Peripheral vascular disease Current visit: Yes Status: Acute Category: Medical Code(s): I73.9 - Peripheral vascular disease, unspecified (5) Shoulder fracture, right Current visit: Yes Status: Acute Qualifiers: Encounter type: initial encounter Fracture type: closed Qualified Code(s): S42.91XA - Fracture of right shoulder girdle, part unspecified, initial encounter for closed fracture Category: Medical Code(s): S42.91XA - Fracture of right shoulder girdle, part unspecified, initial encounter for closed fracture (6) Renal insufficiency Current visit: Yes Status: Acute Category: Medical Code(s): N28.9 - Disorder of kidney and ureter, unspecified (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 Current visit: Yes Status: Chronic Category: Surgical Code(s): Z89.511 - Acquired absence of right leg below knee (8) Diabetes Current visit: Yes Status: Chronic Qualifiers: Diabetes mellitus type: type 2 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 difficile diarrhea Current visit: Yes Status: Acute Category: Medical Code(s): A04.72 - Enterocolitis due to Clostridium difficile, not specified as recurrent The patient's infection will respond to the chosen ABx?: Yes Is the patient receiving the right drug, dose, and route?: Yes Could a more targeted ABx be ordered?: No
[2017-12-11 14:46] LABS: Hematocrit 30.6 % (37.0-47.0)
[2017-12-11 14:56] LABS: Hemoglobin 9.7 g/dL (12.2-16.2)
[2017-12-12 06:18] LABS: Basophils % 0.2 % (0.1-2.0); Eosinophils # 0.3 K/mm3 (0.0-0.4); Eosinophils % 3.3 % (0.1-12.0); Lymphocytes # 0.8 K/mm3 (0.7-4.5); Lymphocytes % 8.9 K/mm3 (10-50); Mean Corpuscular HGB Conc 32.8 g/dL (31.8-35.4); Mean Corpuscular Hemoglobin 29.1 pg (27.0-31.2); Mean Corpuscular Volume 88.7 fl (81-99); Mean Platelet Volume 9.6 fl (7.4-10.4); Monocytes # 0.6 K/mm3 (0.1-1.0); Neutrophils # 7.2 K/mm3 (1.8-7.8); Neutrophils % 80.7 % (37.0-80.0); Platelet Count 193 K/mm3 (142-424); Red Blood Count 2.88 M/mm3 (4.20-5.40); Red Cell Distribution Width 15.3 % (11.5-17.5); White Blood Count 8.9 K/mm3 (4.8-10.8)
[2017-12-12 06:29] LABS: Albumin Level 1.5 gm/dL (3.4-5.0); Albumin/Globulin Ratio 0.6 (1.1-1.8); Anion Gap 8.9 mEq/L (5-15); Bilirubin,Total 1.2 mg/dL (0.2-1.0); Globulin 2.5 gm/dl (1.3-3.2); Potassium 3.9 mmoL/L (3.5-5.1)
--- NOTE | 2017-12-12 06:48 | Progress Note ---
Internal Medicine - PN: Subj *Date: 12/12/17 *Time: 06:46 Interval history: Patient has no complaints this morning. She denies shortness of breath or abdominal pain. She reports her pain from fractures is under control with oral narcotics. Fever curve seems to be trending down Exam Vital signs and Labs for Last 24 Hours: Temp Pulse Resp BP Pulse Ox 97.2 F L 75 18 98/40 92 L 12/12/17 03:49 12/12/17 06:17 12/12/17 03:49 12/12/17 03:49 12/12/17 06:17 Laboratory Results - last 24 hr 12/11/17 07:01: POC Glucose 133 H 12/11/17 12:26: POC Glucose 123 H 12/11/17 14:20: Hgb 9.7 L, Hct 30.6 L 12/11/17 16:22: POC Glucose 131 H 12/11/17 20:09: POC Glucose 142 H 12/12/17 06:09: Sodium 137, Potassium 3.9, Chloride 105, Carbon Dioxide 27, Anion Gap 8.9, BUN 16, Creatinine 0.87, Estimated Creat Clear 60, Estimated GFR 65, Est GFR ( Amer) 78, Glucose 113 H, Calcium 7.0 L, Total Bilirubin 1.2 H, AST 16, ALT 13, Alkaline Phosphatase 59, Total Protein 4.0 L D, Albumin 1.5 L , Globulin 2.5, Albumin/Globulin Ratio 0.6 L I & O for Last 24 hours: Intake & Output 12/09/17 12/10/17 12/11/17 12/12/17 11:59 11:59 11:59 11:59 Intake Total 1550 / 1550 1298 / 1298 2160 / 2160 1240 / 1240 Output Total 1750 / 1750 1850 / 1850 800 / 800 400 / 400 Balance -200 / -200 -552 / -552 1360 / 1360 840 / 840 Weight 163 lb 163 lb 3 oz 163 lb 3 oz 157 lb 8 oz Microbiology Reports for the Last 24 Hours: Microbiology 12/06/17 19:44 Blood Blood Culture - Final NO GROWTH AFTER 5 DAYS 12/06/17 19:44 Blood Blood Culture - Final NO GROWTH AFTER 5 DAYS 12/10/17 12:13 Urine,Catheterized Urine Culture - Preliminary NO GROWTH AFTER 24 HOURS Narrative: Patient is in no distress. Affect is flat. Nasal cannula is in place. Lungs are clear with diminished sounds at bases. Heart has a regular rate and rhythm. Abdomen is soft and nontender. Assessment and Plan (1) Anemia due to blood loss, acute Current visit: Yes Status: Acute Category: Medical Code(s): D62 - Acute posthemorrhagic anemia (2) Right femoral shaft fracture Current visit: Yes Status: Acute Qualifiers: Encounter type: subsequent encounter Fracture type: closed Fracture morphology: unspecified fracture morphology Fracture healing: with delayed healing Qualified Code(s): S72.301G - Unspecified fracture of shaft of right femur, subsequent encounter for closed fracture with delayed healing Category: Medical Code(s): S72.301A - Unspecified fracture of shaft of right femur, initial encounter for closed fracture (3) Hip fracture Current visit: Yes Status: Acute Qualifiers: Encounter type: initial encounter Fracture type: closed Laterality: right Qualified Code(s): S72.001A - Fracture of unspecified part of neck of right femur, initial encounter for closed fracture Category: Medical Code(s): S72.009A - Fracture of unspecified part of neck of unspecified femur, initial encounter for closed fracture (4) Peripheral vascular disease Current visit: Yes Status: Acute Category: Medical Code(s): I73.9 - Peripheral vascular disease, unspecified (5) Shoulder fracture, right Current visit: Yes Status: Acute Qualifiers: Encounter type: initial encounter Fracture type: closed Qualified Code(s): S42.91XA - Fracture of right shoulder girdle, part unspecified, initial encounter for closed fracture Category: Medical Code(s): S42.91XA - Fracture of right shoulder girdle, part unspecified, initial encounter for closed fracture (6) Renal insufficiency Current visit: Yes Status: Acute Category: Medical Code(s): N28.9 - Disorder of kidney and ureter, unspecified (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 Current visit: Yes Status: Chronic Category: Surgical Code(s): Z89.511 - Acquired absence of right leg below knee (8) Diabetes Current visit: Yes Status: Chronic Qualifiers: Diabetes mellitus type: type 2 Diabetes mellitus 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 difficile diarrhea Current visit: Yes Status: Acute Category: Medical Code(s): A04.72 - Enterocolitis due to Clostridium difficile, not specified as recurrent - Assessment and plan all Dx Assessment and Plan for all problems:: 1. Continue Flagyl 2. Decrease IV fluids 3. Monitor for fever 4. Await morning labs. 5. Patient will be discharged when afebrile for 24 hours
[2017-12-12 06:57] LABS: Hematocrit 25.5 % (37.0-47.0); Hemoglobin 8.4 g/dL (12.2-16.2)
--- NOTE | 2017-12-12 09:16 | Progress Note ---
Subjective Date: 12/12/17 Time: 08:45 Principal diagnosis: Left foot DM ulcer Interval history: Patient has been under my care for a left foot ulcer secondary to diabetes and peripheral artery disease. Underwent a transmetatarsal amputation on 09/18/17. Patient has been seeing fill at the wound care clinic for wound VAC dressing changes and debridements. Patient denies any new problems or pain to the foot. PN: Obj Ex Vital signs: Temp Pulse Resp BP Pulse Ox 98.1 F 76 18 110/68 91 L 12/12/17 07:37 12/12/17 07:37 12/12/17 07:37 12/12/17 07:37 12/12/17 07:37 - Constitutional no acute distress - Routine HEENT Exam Head: Present: normocephalic - Routine Respiratory Exam Absent: respiratory distress - Routine Abdominal Exam Present: soft - Detailed Lower Extremity Exam Foot/Toes: Left amputation Comments: R BKA. L TMA wound dehiscence noted. Fibrotic slough and granular tissue noted in wound base. No necrotic tissue. No ascending cellulitis or SOI. - Urinary Catheter Management Albright Cath placed during this visit: yes Urethral indwelling: No Insertion date: 12/06/17 Insertion time: 19:44 Progress Note: A&P (1) Anemia due to blood loss, acute Status: Acute Current Visit: Yes (2) Right femoral shaft fracture Status: Acute Current Visit: Yes (3) Hip fracture Status: Acute Current Visit: Yes (4) Peripheral vascular disease Status: Acute Current Visit: Yes (5) Shoulder fracture, right Status: Acute Current Visit: Yes (6) Renal insufficiency Status: Acute Current Visit: Yes (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 Status: Chronic Current Visit: Yes (8) Diabetes Status: Chronic Current Visit: Yes (9) Sepsis Status: Acute Current Visit: Yes (10) C. difficile diarrhea Status: Acute Current Visit: Yes Assessment and Plan for All Diagnoses:: S/p left TMA, 09/18/17 Intra-op cultures, 09/18/17: MRSA, Enterococcus faecalis 1st met bone culture, 09/18/17: VRSA Proximal margin 3rd met, 09/18/17: MRSA, Enterococcus faecalis Wound culture, 10/15/17: MSSA, S. epi Overall the wound looks improved with the wound vac. Utilizing a 15' blade, the wound site was sharply debrided thru skin into subq tissue. Fibrotic slough, biofilm and nonviable tissue was removed from the skin into the subcutaneous tissue. Post debridement: 60% granular, 40% fibrotic. Wound measured 5.5 x 1.7 x 0.2 cm. Wound was cleansed with Betadine. Betadine DSD applied. Wound care for vac changes. She is to continue non weight bearing. Discussed plan of care with Femi from wound care team. Stable left foot from Podiatry stand point.
--- NOTE | 2017-12-12 15:59 | Progress Note ---
Subjective Date: 12/12/17 Time: 13:00 Principal diagnosis: Left foot DM ulcer PN: Obj Ex Vital signs: Temp Pulse Resp BP Pulse Ox 98.9 F 88 20 116/50 94 L 12/12/17 12:00 12/12/17 12:41 12/12/17 12:00 12/12/17 12:00 12/12/17 12:41 Narrative: Laboratory Results - last 24 hr 12/11/17 16:22: POC Glucose 131 H 12/11/17 20:09: POC Glucose 142 H 12/12/17 06:09: WBC 8.9, RBC 2.88 L, Hgb 8.4 L D, Hct 25.5 L, MCV 88.7, MCH 29.1, MCHC 32.8, RDW 15.3, Plt Count 193, MPV 9.6, Neut % (Auto) 80.7 H, Lymph % (Auto) 8.9 L, [place] % (Auto) 7.0, Eos % (Auto) 3.3, Baso % (Auto) 0.2, Neut # (Auto) 7.2, Lymph # (Auto) 0.8, [place] # (Auto) 0.6, Eos # (Auto) 0.3, Baso # (Auto) 0.0 12/12/17 06:09: Sodium 137, Potassium 3.9, Chloride 105, Carbon Dioxide 27, Anion Gap 8.9, BUN 16, Creatinine 0.87, Estimated Creat Clear 60, Estimated GFR 65, Est GFR ( Amer) 78, Glucose 113 H, Calcium 7.0 L, Total Bilirubin 1.2 H, AST 16, ALT 13, Alkaline Phosphatase 59, Total Protein 4.0 L D, Albumin 1.5 L , Globulin 2.5, Albumin/Globulin Ratio 0.6 L 12/12/17 06:35: POC Glucose 120 H 12/12/17 11:19: POC Glucose 114 H - Urinary Catheter Management Albright Cath placed during this visit: yes Urethral indwelling: No Insertion date: 12/06/17 Insertion time: 19:44 Progress Note: A&P (1) Anemia due to blood loss, acute Status: Acute Current Visit: Yes (2) Right femoral shaft fracture Status: Acute Current Visit: Yes (3) Hip fracture Status: Acute Current Visit: Yes (4) Peripheral vascular disease Status: Acute Current Visit: Yes (5) Shoulder fracture, right Status: Acute Current Visit: Yes (6) Renal insufficiency Status: Acute Current Visit: Yes (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 Status: Chronic Current Visit: Yes (8) Diabetes Status: Chronic Current Visit: Yes (9) Sepsis Status: Acute Current Visit: Yes (10) C. difficile diarrhea Status: Acute Current Visit: Yes
[2017-12-13 06:16] LABS: Basophils % 0.2 % (0.1-2.0); Eosinophils # 0.4 K/mm3 (0.0-0.4); Eosinophils % 3.6 % (0.1-12.0); Hematocrit 25.5 % (37.0-47.0); Hemoglobin 8.2 g/dL (12.2-16.2); Lymphocytes # 0.8 K/mm3 (0.7-4.5); Lymphocytes % 7.3 K/mm3 (10-50); Mean Corpuscular HGB Conc 32.3 g/dL (31.8-35.4); Mean Corpuscular Hemoglobin 28.8 pg (27.0-31.2); Mean Corpuscular Volume 89.3 fl (81-99); Mean Platelet Volume 8.7 fl (7.4-10.4); Monocytes # 0.9 K/mm3 (0.1-1.0); Monocytes % 7.8 % (1.7-9.3); Neutrophils # 9.2 K/mm3 (1.8-7.8); Neutrophils % 81.2 % (37.0-80.0); Platelet Count 239 K/mm3 (142-424); Red Blood Count 2.85 M/mm3 (4.20-5.40); Red Cell Distribution Width 15.3 % (11.5-17.5); White Blood Count 11.4 K/mm3 (4.8-10.8)
--- NOTE | 2017-12-14 08:29 | Discharge Summary ---
General - General Admission date:: 12/06/17 Discharge date: 12/13/17 HPI HPI: 67 year old female injured in a fall two days ago. Initial eval diagnoses a right femoral shaft fracture. Because patient is not weight bearing on the right leg due to BKA a conservative approach was appropriate. Patient returned to the ER last night with complaint of pain in the right shoulder and right hip. X-rays revealed right hip intertrochanteric fx nad right humeral head fracture. Patient also had significant drop in H/H and required transfusion. She has been admitted and is receiving her second unit of blood this a.m. She reports pain as mild. Pain is more significant with movements of affected joints. Patient is a long time smoker. She lives at home with children. Hospital Course Hospital Course: Patient was admitted for orthopedic consultation and pain control. She underwent orthopedic evaluation and it was felt that conservative treatment of her multiple fractures was best considering her comorbidities, continued cigarette use, nonweightbearing status. Early on in the admission as discussed with the patient that she would benefit from placement in a skilled facility while fractures were healing to that she could receive appropriate care in regards to her ADLs. Initially patient balked at this but ultimately agreed to SNF placement. Patient developed anemia that required transfusions. Anemia was present on admission and patient was transfused 2 units of packed red blood cells she required an additional unit of packed red blood cells approximately 48 hours later. Hemoglobin at discharge was 8.2. On December 08 in the evening patient developed fevers. This triggered a sepsis evaluation. Patient was started on broad-spectrum antibiotics and blood cultures were performed. Patient had one set of negative blood culture performed on admission. Subsequent blood cultures also were negative. Despite broad-spectrum antibiotics fevers persisted. Patient had diarrhea and diarrhea panel was performed which was positive for C. difficile. She was started on oral Flagyl. Of movements decreased in frequency. Fevers decreased. Once fevers had decreased, and and infection was identified, patient was discharged to [facility]. Patient has a wound vacuum on her left foot from prior metatarsal amputation. She was seen by physical therapy and wound care while hospitalized. On Dec the wound was debrided by Dr. Phillips and it was recommended she continue the wound vacuum. We will get mentations from wound care prior to discharg Mental Status: average rehab pot: fair prognosis :fair Objective Vital signs: Temp Pulse Resp BP Pulse Ox 98.6 F 71 18 107/48 91 L 12/13/17 04:00 12/13/17 06:47 12/13/17 04:00 12/13/17 04:00 12/13/17 06:47 Results Labs on day of discharge: Labs from last 24 hours 12/13/17 12/13/17 12/12/17 06:38 05:30 21:31 WBC 11.4 H D RBC 2.85 L Hgb 8.2 L Hct 25.5 L MCV 89.3 MCH 28.8 MCHC 32.3 RDW 15.3 Plt Count 239 MPV 8.7 Neut % (Auto) 81.2 H Lymph % (Auto) 7.3 L [place] % (Auto) 7.8 Eos % (Auto) 3.6 Baso % (Auto) 0.2 Neut # (Auto) 9.2 H Lymph # (Auto) 0.8 [place] # (Auto) 0.9 Eos # (Auto) 0.4 Baso # (Auto) 0.0 POC Glucose 101 174 H 12/12/17 12/12/17 12/12/17 16:43 11:19 06:35 WBC RBC Hgb Hct MCV MCH MCHC RDW Plt Count MPV Neut % (Auto) Lymph % (Auto) [place] % (Auto) Eos % (Auto) Baso % (Auto) Neut # (Auto) Lymph # (Auto) [place] # (Auto) Eos # (Auto) Baso # (Auto) POC Glucose 148 H 114 H 120 H Preliminary micro results at discharge 12/08/17 22:35 Blood Culture - Preliminary Blood NO GROWTH AFTER 48 HOURS 12/08/17 22:35 Blood Culture - Preliminary Blood NO GROWTH AFTER 48 HOURS DS: Diagnosis - Discharge Diagnosis (1) Right femoral shaft fracture Status: Acute (2) Anemia due to blood loss, acute Status: Acute (3) Hip fracture Status: Acute (4) Peripheral vascular disease Status: Acute (5) Shoulder fracture, right Status: Acute (6) Renal insufficiency Status: Acute (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 difficile diarrhea Status: Acute Discharge Plan - Patient Discharge Instructions ACTIVITY: Continue current activity DIET: continue same diet Patient Instructions: Pneumonia-Adult, Hip Fracture, Femoral Fracture, Anemia, DI for Pneumonia -- Adult, DI for Antibiotic -- associated Colitis -- C difficile, DI for Blood Transfusion, DI for Debridement of a Wound, Infection, or Burn, DI for Femoral Fracture, DI for Shoulder Fracture, Surgical Site Infection, DI with Wound Drains - Follow up Plan Follow up with: Sulma Esquivel DPM [Staff Physician] - 2 weeks Disposition: [facility] Home Medications: Home Medications Medication Instructions Recorded Confirmed Type atorvastatin 80 mg tablet 80 mg PO DAILY 30 Days #30 05/24/17 12/06/17 History gabapentin 600 mg tablet 600 mg PO TID 05/24/17 12/06/17 History omeprazole 20 mg capsule,delayed 20 mg PO DAILY 30 Days #30 05/24/17 12/06/17 History release ropinirole 1 mg tablet 1 mg PO HS 30 Days #30 05/24/17 12/06/17 History RX: Albuterol Sulfate [Albuterol 1 puff INHALATION BID 07/28/17 12/06/17 History HFA Inhaler] sitagliptin 50 mg tablet 50 mg PO DAILY 30 Days #30 10/15/17 12/06/17 History insulin aspart U- 100 100 unit/mL 0.04 unit/g of ch2o SUB-Q TID ml 10/22/17 12/06/17 History subcutaneous solution Prescriptions/Medication Reconciliation: New RX: metroNIDAZOLE [metroNIDAZOLE 500mg Tablet] 500 mg PO TID 10 Days tablet RX: Insulin Lispro [HumaLOG 100 units/mL 3mL vial (SSI)] 0 unit SQ ACHS ml RX: Lactobacillus Reuteri [Lactinex granules 1gm pkt] 1 gm PO AC packet Continue omeprazole 20 mg capsule,delayed release 20 mg PO DAILY 30 Days #30 atorvastatin 80 mg tablet 80 mg PO DAILY 30 Days #30 gabapentin 600 mg tablet 600 mg PO TID insulin aspart U- 100 100 unit/mL subcutaneous solution 0.04 unit/g of ch2o SUB-Q TID ml ropinirole 1 mg tablet 1 mg PO HS 30 Days #30 sitagliptin 50 mg tablet 50 mg PO DAILY 30 Days #30 RX: Albuterol Sulfate [Albuterol HFA Inhaler] 1 puff INHALATION BID RX: Hydrocod/Acet 5/325 mg [Riley 5/325mg tablet] 1 tab PO Q6HP PRN #10 tab PRN Reason: Pain RX: Hydrocodone/Acetaminophen [Hydrocodone-Acetamin 5-325 mg] 1 each PO Q6HP PRN #120 tab PRN Reason: PAIN Discontinued clopidogrel 75 mg tablet 75 mg PO DAILY 30 Days #30 apixaban 5 mg tablet 5 mg PO BID valsartan 160 mg tablet 160 mg PO DAILY 30 Days #30 diltiazem CD 120 mg capsule,extended release 24 hr 120 mg PO DAILY #90 cap predniSONE [Prednisone 20mg Tab] 20 mg PO BID levoFLOXacin [Levaquin 750mg tablet] 750 mg PO DAILY
== END 2017-12-13 10:53 ==
LOC: ER 19:14 → 2ND 23:16
PROVIDERS: ADMIT Family Medicine; ATTEND Family Medicine

== ENCOUNTER → 2017-12-25 13:47 | Outpatient (CLI) | payer MEDICARE, MEDICAID, SELFPAY ==
--- NOTE | 2017-12-25 13:51 | XR_ITS ---
XR shoulder RT min 2V HISTORY: Follow-up fracture ITS.REASON: shoulder fx fu/ regular views. ORDERING PHYSICIAN: Hernandez Dela Cruz MD PATIENT AGE: 67 years Comparison: 12/06/2017 FINDINGS: There is nondisplaced fracture of the neck of the humerus. Osteoarthritic changes involve the acromioclavicular joint with chondrocalcinosis. Mild osteoarthritis also noted at the glenohumeral joint. IMPRESSION: 1. Nondisplaced fracture at the humeral neck. 2. 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
--- NOTE | 2017-12-25 13:51 | XR_ITS ---
XR femur RT 2V CLINICAL INDICATION: Follow-up fracture ITS.REASON: femur fx rt ORDERING PHYSICIAN: Hernandez Dela Cruz MD PATIENT AGE: 67 years Comparison: None FINDINGS: Please see hip report for description of the proximal femur Severely comminuted displaced fracture once again noted involving the distal femur with shattered distal femoral shaft with dorsal and medial displacement of the distal fracture fragments with impaction of the fracture fragments. The comminution appears more severe on today's exam than when compared to the previous study possibly due to differences in technique and positioning or could be due to true increase comminution IMPRESSION: Comminuted distal femur fracture which is displaced and impacted with suggestion of increased comminution compared to the previous exam
--- NOTE | 2017-12-25 13:51 | XR_ITS ---
XR hip RT 2-3V w/pelvis HISTORY: Follow-up] fracture ITS.REASON: rt hip fx fu ORDERING PHYSICIAN: Hernandez Dela Cruz MD PATIENT AGE: 67 years COMPARISON: 12/06/2017 FINDINGS: Nondisplaced fracture once again noted at the base of the greater trochanter. Mildly impacted femoral neck fracture also noted. These findings are not significant changed. Surgical clips are present in the right inguinal region. IMPRESSION: Nondisplaced right femoral neck fracture and fracture at the base of the greater trochanter overall not significant changed
== END ==
PROVIDERS: PCP Family Medicine; Visit Provider Orthopaedic Surgery
DX: S72.91XA Unspecified fracture of right femur, initial encounter for closed fracture (principal); M25.511 Pain in right shoulder; S72.001A Fracture of unspecified part of neck of right femur, initial encounter for closed fracture
CPT/HCPCS: 73030; 73502; 73552

== ENCOUNTER 2017-12-26 16:03 | Observation (INO) ==
--- NOTE | 2017-12-26 16:22 | Emergency Department Note ---
ED Disposition Clinical Impression: Atrial fibrillation with RVR, Chest pain Disposition: Still a Patient Condition on Discharge: Good Referrals: Mario Campos MD [Primary Care Provider] - - Critical Care Critical Care Time: No Attestation: On 12/26/17, the high probability of a clinically significant, sudden or life threatening deterioration of the following system(s) required my full and direct attention, intervention and personal management. The time I documented below is in addition to time spent performing reported procedures but includes the following listed in this critical care notation. Medical Decision Making - Medical Records MR Comment: 656 dw Al accepts. pt converted with 20 diltiazem here to nsr. admit observe rule out. Al desires cardiazem 30mg P 9pm tonight single dose, dw hr 79, and sbp 114 now. pt in nad. - Mian Inquiry Pt receiving controlled substance: No Vital Signs: 12/26/17 16:10 Temperature 98.2 F Temperature Source Oral Pulse Rate [Right Brachial] 126 H Respiratory Rate 18 Blood Pressure [Right Arm] 132/70 Blood Pressure Mean [Right Arm] 90 Blood Pressure Source [Right Arm] Automatic Cuff Blood Pressure Position [Right Arm] Sitting 02 Sat by Pulse Oximetry 97 Oxygen Delivery Method Room Air - Lab Data Lab Results 12/26/17 15:46: WBC 6.9, RBC 4.20, Hgb 11.7 L, Hct 38.0, MCV 90.5, MCH 28.0, MCHC 30.9 L, RDW 16.3, Plt Count 553 H, MPV 7.3 L, Neut % (Auto) 75.9, Lymph % (Auto) 15.5, [place] % (Auto) 5.8, Eos % (Auto) 1.9, Baso % (Auto) 1.0, Neut # (Auto) 5.2, Lymph # (Auto) 1.1, [place] # (Auto) 0.4, Eos # (Auto) 0.1, Baso # (Auto) 0.1 12/26/17 15:46: Sodium 138, Potassium 4.7, Chloride 103, Carbon Dioxide 31, Anion Gap 8.7, BUN 9, Creatinine 0.62, Estimated Creat Clear 62, Estimated GFR 95, Est GFR ( Amer) 115, Glucose 177 H, Calcium 7.9 L, Total Bilirubin 0. 7, AST 15, ALT 13, Alkaline Phosphatase 242 H, Troponin I < 0.02, Total Protein 5.5 L D, Albumin 2.3 L, Globulin 3.2, Albumin/Globulin Ratio 0.7 L 12/26/17 15:46: B-Natriuretic Peptide 215 H Result diagrams: 12/26/17 15:46 12/26/17 15:46 Orders (Tests/Meds): ED MEDICATIONS Generic Name Dose Route Start Last Admin Trade Name Freq PRN Reason Stop Dose Admin Diltiazem HCl 100 mg/ Sodium 100 mls @ 5 mls/hr 12/26/17 16:30 12/26/17 18:44 Chloride IV 01/25/18 16:29 Not Given .Q20H SONALI Protocol Discontinued Medications Generic Name Dose Route Start Last Admin Trade Name Freq PRN Reason Stop Dose Admin Diltiazem HCl 20 mg 12/26/17 16:25 12/26/17 16:38 Cardizem 25mg/5ml Vial IV 12/26/17 16:26 20 mg ONCE ONE Administration Morphine Sulfate 4 mg 12/26/17 18:01 12/26/17 18:09 Morphine 4mg/Ml Syringe IV 12/26/17 18:02 4 mg ONCE ONE Administration ORDERS Category Date Time Status Urinalysis and Microscopic Stat Lab 12/26/17 16:18 Ordered ECG Request by /Constantine Stat Y 12/26/17 16:18 Ordered EKG Request [ECG Request by /Constantine] Stat Y 12/26/17 16:45 Ordered - ECG Data Tracing #1 ER EKG read by myself shows normal sinus rhythm rate of 74, normal axis, no QT prolongation, nonspecific EKG Tracing #2 ER EKG read by myself shows normal sinus rhythm rate of 74, normal axis, no QT prolongation, nonspecific EKG General Adult HPI - General Chief complaint: Chest Pain Stated complaint: CHEST PAIN FOR THE LAST 3 DAYS Time Seen by Provider: 12/26/17 16:18 - History of Present Illness HPI narrative: Patient states she has had chest pain all day center of her chest moderate in severity achy no radiation with some shortness of breath and nausea. Camila lizarraga they have had a heart cath 3 months ago they do not know the results of the past. Denies any headache or abdominal pain. no Fevers or chills - Related Data Home Medications Medication Instructions Recorded Confirmed atorvastatin 80 mg tablet 80 mg PO DAILY 30 Days #30 05/24/17 12/26/17 gabapentin 600 mg tablet 600 mg PO TID 05/24/17 12/26/17 omeprazole 20 mg capsule,delayed 20 mg PO DAILY 30 Days #30 05/24/17 12/26/17 release ropinirole 1 mg tablet 1 mg PO HS 30 Days #30 05/24/17 12/26/17 Albuterol Sulfate [Albuterol HFA 1 puff INHALATION BID 07/28/17 12/26/17 Inhaler] sitagliptin 50 mg tablet 50 mg PO DAILY 30 Days #30 10/15/17 12/26/17 insulin aspart U- 100 100 unit/mL 0.04 unit/g of ch2o SUB-Q TID ml 10/22/17 12/26/17 subcutaneous solution Insulin Lispro [HumaLOG 100 0 unit SQ ACHS 12/26/17 12/26/17 units/mL 3mL vial (SSI)] Lactobacillus Reuteri [Lactinex 1 gm PO AC 12/26/17 12/26/17 granules 1gm pkt] Previous Rx's Medication Instructions Recorded Hydrocodone/Acetaminophen 1 each PO Q6HP PRN #120 tab 12/13/17 [Hydrocodone-Acetamin 5-325 mg] Allergies Allergy/AdvReac Type Severity Reaction Status Date / Time ibuprofen [IBUPROFEN] Allergy Severe I-HIVES Verified 12/26/17 16:20 aspirin [ASPIRIN] Allergy Unknown Verified 12/26/17 16:20 tramadol Allergy Unknown Verified 12/26/17 16:20 zolpidem [From AMBIEN] Allergy Unknown Verified 12/26/17 16:20 [facility] History I have reviewed the patient's past medical history: Yes Medical History: Reports:: Asthma, Atrial Fibrillation, Congestive Heart Failure, Chronic Obstructive Pulmonary Disease (COPD), Diabetes Mellitus Type 2, Gastroesophageal Reflux Disease(GERD), Hyperlipidemia, MRSA, Peripheral Artery Disease, Peripheral Vascular Disease Denies:: Cancer, Hypertension, Seizures Other Medical History: Denies: Blood Transfusion Reaction Laterality Cases: Left: Lumpectomy, Right: Other Other Surgeries: Yes: Appendectomy, Cardiac Catheterization, Colonoscopy, C- section, EGD, Hysterectomy-Total, Other Amputation: Yes (right bka) Fractures: No Comment: Right BKA, left great toe amputation, left 2nd distal amputation-2018 - Social History Smoking Status: Former smoker Tobacco Type: cigarettes # Packs/Day (cigarettes): 1 #Yrs smoked (if former smoker): 7 Alcohol Intake: never Alcohol Intake Frequency:: other Substance Use Type: denies use Occupational Status: retired, disabled Housing: house Household Members: children Family Hx:: Diabetes, Cancer, Coronary Artery Disease ROS Obtained: Yes All systems reviewed & no additional complaints Physical Exam General Appearance: Nontoxic Head: Normocephalic, without obvious abnormality, atraumatic. Eyes: conjunctiva/corneas clear ENT: Mucous membranes moist. Neck: No jugular venous distention. Cardiac: regular rhythm tachycardic Lungs: Clear to auscultation bilaterally Abdomen: Nontender, Nondistended, positive bowel sounds, no rebound : No CVA tenderness Extremities: trace edema, right leg amputation Musculoskeletal: No chest wall tenderness Skin: No rashes or lesions to exposed skin. Neurologic: Alert. No gross focal deficits Psychiatric: Normal affect - General General appearance: alert - Respiratory Respiratory exam: Absent: accessory muscle use - Cardiovascular Cardiovascular exam: Absent: JVD - Neurological Exam Neurological exam: Present: alert
[2017-12-26 16:30] LABS: Basophils # 0.1 K/mm3 (0-0.2); Eosinophils # 0.1 K/mm3 (0.0-0.4); Eosinophils % 1.9 % (0.1-12.0); Hemoglobin 11.7 g/dL (12.2-16.2); Lymphocytes # 1.1 K/mm3 (0.7-4.5); Lymphocytes % 15.5 K/mm3 (10-50); Mean Corpuscular HGB Conc 30.9 g/dL (31.8-35.4); Mean Corpuscular Volume 90.5 fl (81-99); Mean Platelet Volume 7.3 fl (7.4-10.4); Monocytes # 0.4 K/mm3 (0.1-1.0); Monocytes % 5.8 % (1.7-9.3); Neutrophils # 5.2 K/mm3 (1.8-7.8); Neutrophils % 75.9 % (37.0-80.0); Platelet Count 553 K/mm3 (142-424); Red Cell Distribution Width 16.3 % (11.5-17.5); White Blood Count 6.9 K/mm3 (4.8-10.8)
[2017-12-26 17:04] LABS: Alanine Aminotransferase 13 U/L (12-78); Albumin Level 2.3 gm/dL (3.4-5.0); Albumin/Globulin Ratio 0.7 (1.1-1.8); Alkaline Phosphatase 242 U/L (46-116); Anion Gap 8.7 mEq/L (5-15); Aspartate Amino Transferase 15 U/L (15-37); Bilirubin,Total 0.7 mg/dL (0.2-1.0); Blood Urea Nitrogen 9 mg/dL (7-18); Calcium 7.9 mg/dL (8.5-10.1); Carbon Dioxide 31 mmol/L (21.0-32.0); Chloride 103 mmol/L (98-107); Globulin 3.2 gm/dl (1.3-3.2); Glucose 177 mg/dL (74-106); Potassium 4.7 mmoL/L (3.5-5.1); Sodium 138 mmol/L (136-145); Total Protein,Serum 5.5 gm/dL (6.4-8.2)
[2017-12-27 05:31] LABS: Basophils % 0.7 % (0.1-2.0); Eosinophils # 0.1 K/mm3 (0.0-0.4); Eosinophils % 2.6 % (0.1-12.0); Hematocrit 30.5 % (37.0-47.0); Lymphocytes # 1.3 K/mm3 (0.7-4.5); Mean Corpuscular HGB Conc 30.6 g/dL (31.8-35.4); Mean Corpuscular Hemoglobin 28.2 pg (27.0-31.2); Mean Corpuscular Volume 92.2 fl (81-99); Mean Platelet Volume 7.4 fl (7.4-10.4); Monocytes # 0.4 K/mm3 (0.1-1.0); Monocytes % 8.2 % (1.7-9.3); Neutrophils # 3.4 K/mm3 (1.8-7.8); Neutrophils % 63.5 % (37.0-80.0); Platelet Count 477 K/mm3 (142-424); Red Blood Count 3.31 M/mm3 (4.20-5.40); Red Cell Distribution Width 16.5 % (11.5-17.5); White Blood Count 5.3 K/mm3 (4.8-10.8)
[2017-12-27 05:40] LABS: Albumin/Globulin Ratio 0.7 (1.1-1.8); Anion Gap 5.6 mEq/L (5-15); Bilirubin,Total 0.6 mg/dL (0.2-1.0); Calcium 7.5 mg/dL (8.5-10.1); Globulin 2.8 gm/dl (1.3-3.2); Potassium 4.6 mmoL/L (3.5-5.1); Total Protein,Serum 4.8 gm/dL (6.4-8.2)
[2017-12-27 05:53] LABS: Hemoglobin 9.4 g/dL (12.2-16.2)
--- NOTE | 2017-12-27 07:54 | Pharmacy Consult Notes ---
[facility] Pharmacy VTE Monitoring - Patient Demographics Admission date: 12/27/17 Report Date: 12/27/17 Time: 07:54 Allergies/Adverse Reactions: Patient Allergies ibuprofen [IBUPROFEN] Allergy (Severe, Verified 12/26/17 16:20) I-HIVES aspirin [ASPIRIN] Allergy (Unknown, Verified 12/26/17 16:20) tramadol Allergy (Unknown, Verified 12/26/17 16:20) zolpidem [From AMBIEN] Allergy (Unknown, Verified 12/26/17 16:20) Height: 1.57 m Weight: 66.933 kg Patient Problems: Current Active Problems Atrial fibrillation with RVR (Acute) Chest pain (Acute) - VTE Risk Labs: VTE Related Lab Results Hgb 9.4 g/dL (12.2-16.2) L D 12/27/17 04:11 Hct 30.5 % (37.0-47.0) L 12/27/17 04:11 Plt Count 477 K/mm3 (142-424) H 12/27/17 04:11 BUN 10 mg/dL (7-18) 12/27/17 04:11 Creatinine 0.59 mg/dL (0.55-1.02) 12/27/17 04:11 Estimated Creat Clear 56 mL/min (0-300) 12/27/17 04:11 Was VTE Risk Assessment Performed: Yes VTE Score: 6 VTE Risk Level: Moderate Risk Clinical Trial Participant: No - Prophylaxis Types of VTE Prophylaxis: TEDS Knee High
--- NOTE | 2018-01-10 13:20 | H&P/Discharge Summary ---
General - General Admission date:: 12/26/17 Discharge date: 12/27/17 *Admission Date: 12/26/17 *Chief complaint: Chest pain *History of present illness: 67-year-old female with uncontrolled diabetes history of atrial fibrillation and peripheral arterial disease presented to the emergency department with 48 hours of chest pain that developed while she is residing at a local long-term on presentation to the ER patient was found to be in atrial fibrillation with a rate of 120s. She has history of atrial fibrillation. Previously she was on anticoagulants but due to fall risk these have been held. Patient was given a single dose of IV Cardizem in the emergency department which lowered the patient's heart rate and she converted back to a sinus rhythm. She was admitted for serial EKG and enzymes. [facility] History I have reviewed the patient's past medical history: Yes Medical History: Reports:: Asthma, Atrial Fibrillation, Chronic Obstructive Pulmonary Disease (COPD), Diabetes Mellitus Type 2, Gastroesophageal Reflux Disease(GERD), Hyperlipidemia, MRSA, Peripheral Artery Disease, Peripheral Vascular Disease Denies:: Cancer, Hypertension, Seizures Other Medical History: Denies: Blood Transfusion Reaction Laterality Cases: Left: Lumpectomy, Right: Other Other Surgeries: Yes: Appendectomy, Cardiac Catheterization, Colonoscopy, C- section, EGD, Hysterectomy-Total, Other Amputation: Yes (right bka) Fractures: No - *Social History Smoking Status: Former smoker Tobacco Type: cigarettes # Packs/Day (cigarettes): 1 #Yrs smoked (if former smoker): 7 Alcohol Intake: never Alcohol Intake Frequency:: other Substance Use Type: denies use Occupational Status: retired, disabled Housing: long-term Household Members: children - Psychiatric History Expresses thoughts of harming self/others: None Suicide Plan Description: No Plan *Family Hx:: Diabetes, Cancer, Coronary Artery Disease Review of Systems - Review of Systems Review of systems:: pertinent systems reviewed and negative unless documented below - Constitutional Denies body ache(s), Denies chills - *Cardiovascular Reports chest pain, Reports chest pain at rest, Denies excessive sweating, Denies shortness of breath - *Gastrointestinal Denies abdominal pain, Denies belching Exam Vital signs and Labs for Last 24 Hours: Temp Pulse Resp BP Pulse Ox 99.1 F 80 16 103/62 91 L 12/27/17 04:00 12/27/17 04:00 12/27/17 04:00 12/27/17 04:00 12/27/17 04:00 Laboratory Results - last 24 hr 12/26/17 15:46: WBC 6.9, RBC 4.20, Hgb 11.7 L, Hct 38.0, MCV 90.5, MCH 28.0, MCHC 30.9 L, RDW 16.3, Plt Count 553 H, MPV 7.3 L, Neut % (Auto) 75.9, Lymph % (Auto) 15.5, [place] % (Auto) 5.8, Eos % (Auto) 1.9, Baso % (Auto) 1.0, Neut # (Auto) 5.2, Lymph # (Auto) 1.1, [place] # (Auto) 0.4, Eos # (Auto) 0.1, Baso # (Auto) 0.1 12/26/17 15:46: Sodium 138, Potassium 4.7, Chloride 103, Carbon Dioxide 31, Anion Gap 8.7, BUN 9, Creatinine 0.62, Estimated Creat Clear 62, Estimated GFR 95, Est GFR ( Amer) 115, Glucose 177 H, Calcium 7.9 L, Total Bilirubin 0.7, AST 15, ALT 13, Alkaline Phosphatase 242 H, Troponin I < 0.02, Total Protein 5.5 L D, Albumin 2.3 L, Globulin 3.2, Albumin/Globulin Ratio 0.7 L 12/26/17 15:46: B-Natriuretic Peptide 215 H 12/26/17 21:07: POC Glucose 160 H 12/26/17 22:15: Troponin I < 0.02 12/27/17 04:11: Troponin I < 0.02 12/27/17 04:11: WBC 5.3, RBC 3.31 L, Hgb 9.4 L D, Hct 30.5 L, MCV 92.2, MCH 28.2, MCHC 30.6 L, RDW 16.5, Plt Count 477 H, MPV 7.4, Neut % (Auto) 63.5, Lymph % (Auto) 25.0, [place] % (Auto) 8.2, Eos % (Auto) 2.6, Baso % (Auto) 0.7, Neut # (Auto) 3.4, Lymph # (Auto) 1.3, [place] # (Auto) 0.4, Eos # (Auto) 0.1, Baso # (Auto) 0.0 12/27/17 04:11: Sodium 137, Potassium 4.6, Chloride 106, Carbon Dioxide 30, Anion Gap 5.6, BUN 10, Creatinine 0.59, Estimated Creat Clear 56, Estimated GFR 101, Est GFR ( Amer) 122, Calcium 7.5 L, Total Bilirubin 0.6, AST 13 L, ALT 11 L, Alkaline Phosphatase 211 H, Total Protein 4.8 L, Albumin 2.0 L D, Globulin 2.8, Albumin/Globulin Ratio 0.7 L 12/27/17 05:59: POC Glucose 160 H I & O for Last 24 hours: Intake & Output 12/24/17 12/25/17 12/26/17 12/27/17 11:59 11:59 11:59 11:59 Weight 147 lb 9 oz Narrative: Patient is awake and alert. She is oriented to person place and time. Oropharynx is moist. Neck is without lymphadenopathy or carotid bruits. Lungs are clear to auscultation. Heart has a regular rate and rhythm without murmurs gallops or rubs. Abdomen is soft and nontender. For full skin assessment please see nursing notes. Patient has a stage II buttock ulcer. Hospital Course Hospital Course: Patient was admitted and ruled out for ID with serial EKG and enzymes. She remained in sinus rhythm. Patient desired discharge to home instead of returning to the [facility] facility. Prior to discharge physical therapy was consulted for wound care as the patient has a left foot wound from amputation of toes that previously required a wound VAC. Once that evaluation was performed patient was discharged back to home. Results Labs on day of discharge: Labs from last 24 hours 12/27/17 12/27/17 12/27/17 05:59 04:11 04:11 WBC 5.3 RBC 3.31 L Hgb 9.4 L D Hct 30.5 L MCV 92.2 MCH 28.2 MCHC 30.6 L RDW 16.5 Plt Count 477 H MPV 7.4 Neut % (Auto) 63.5 Lymph % (Auto) 25.0 [place] % (Auto) 8.2 Eos % (Auto) 2.6 Baso % (Auto) 0.7 Neut # (Auto) 3.4 Lymph # (Auto) 1.3 [place] # (Auto) 0.4 Eos # (Auto) 0.1 Baso # (Auto) 0.0 Sodium 137 Potassium 4.6 Chloride 106 Carbon Dioxide 30 Anion Gap 5.6 BUN 10 Creatinine 0.59 Estimated Creat Clear 56 Estimated GFR 101 Est GFR ( Amer) 122 Glucose POC Glucose 160 H Calcium 7.5 L Total Bilirubin 0.6 AST 13 L ALT 11 L Alkaline Phosphatase 211 H Troponin I B-Natriuretic Peptide Total Protein 4.8 L Albumin 2.0 L D Globulin 2.8 Albumin/Globulin Ratio 0.7 L 12/27/17 12/26/17 12/26/17 04:11 22:15 21:07 WBC RBC Hgb Hct MCV MCH MCHC RDW Plt Count MPV Neut % (Auto) Lymph % (Auto) [place] % (Auto) Eos % (Auto) Baso % (Auto) Neut # (Auto) Lymph # (Auto) [place] # (Auto) Eos # (Auto) Baso # (Auto) Sodium Potassium Chloride Carbon Dioxide Anion Gap BUN Creatinine Estimated Creat Clear Estimated GFR Est GFR ([facility] Amer) Glucose POC Glucose 160 H Calcium Total Bilirubin AST ALT Alkaline Phosphatase Troponin I < 0.02 < 0.02 B-Natriuretic Peptide Total Protein Albumin Globulin Albumin/Globulin Ratio 12/26/17 12/26/17 12/26/17 15:46 15:46 15:46 WBC 6.9 RBC 4.20 Hgb 11.7 L Hct 38.0 MCV 90.5 MCH 28.0 MCHC 30.9 L RDW 16.3 Plt Count 553 H MPV 7.3 L Neut % (Auto) 75.9 Lymph % (Auto) 15.5 [place] % (Auto) 5.8 Eos % (Auto) 1.9 Baso % (Auto) 1.0 Neut # (Auto) 5.2 Lymph # (Auto) 1.1 [place] # (Auto) 0.4 Eos # (Auto) 0.1 Baso # (Auto) 0.1 Sodium 138 Potassium 4.7 Chloride 103 Carbon Dioxide 31 Anion Gap 8.7 BUN 9 Creatinine 0.62 Estimated Creat Clear 62 Estimated GFR 95 Est GFR ( Amer) 115 Glucose 177 H POC Glucose Calcium 7.9 L Total Bilirubin 0.7 AST 15 ALT 13 Alkaline Phosphatase 242 H Troponin I < 0.02 B-Natriuretic Peptide 215 H Total Protein 5.5 L D Albumin 2.3 L Globulin 3.2 Albumin/Globulin Ratio 0.7 L Discharge Medications - Medications for Discharge Home Medication List at Discharge: No Action omeprazole 20 mg capsule,delayed release 20 mg PO DAILY 30 Days #30 atorvastatin 80 mg tablet 80 mg PO DAILY 30 Days #30 gabapentin 600 mg tablet 600 mg PO TID insulin aspart U- 100 100 unit/mL subcutaneous solution 0.04 unit/g of ch2o SUB-Q TID ml ropinirole 1 mg tablet 1 mg PO HS 30 Days #30 sitagliptin 50 mg tablet 50 mg PO DAILY 30 Days #30 Lactobacillus Reuteri [Lactinex granules 1gm pkt] 1 gm PO AC Insulin Lispro [HumaLOG 100 units/mL 3mL vial (SSI)] 0 unit SQ ACHS Albuterol Sulfate [Albuterol HFA Inhaler] 1 puff INHALATION BID Hydrocodone/Acetaminophen [Hydrocodone-Acetamin 5-325 mg] 1 each PO Q6HP PRN #120 tab PRN Reason: PAIN Disposition Disposition: Home, Self-Care
== END 2017-12-27 13:00 | disposition home or self-care (01) ==
LOC: ER 16:03 → 2ND 16:03
PROVIDERS: ADMIT Internal Medicine Adolescent Medicine; ATTEND Family Medicine

== ENCOUNTER → 2018-01-23 12:42 | Outpatient (CLI) | payer MEDICARE, MEDICAID, SELFPAY ==
--- NOTE | 2018-01-23 12:45 | XR_ITS ---
XR femur RT 2V CLINICAL INDICATION: ITS.REASON: fu right femur fx ORDERING PHYSICIAN: Hernandez Dela Cruz MD PATIENT AGE: 67 years Comparison: 12/25/2017 FINDINGS: There is a comminuted displaced distal shaft fracture once again noted in this patient with a prior [id number] amputation. The main distal fracture fragments are displaced laterally x 18 mm. There is developing callus formation. Multiple surgical clips are present and vascular stents are noted. IMPRESSION: Healing comminuted displaced distal femur fracture
--- NOTE | 2018-01-23 12:45 | XR_ITS ---
XR shoulder RT min 2V HISTORY: Follow-up fracture ITS.REASON: fu shoulder fx/ regular views. ORDERING PHYSICIAN: Hernandez Dela Cruz MD PATIENT AGE: 67 years Comparison: 12/25/2017 FINDINGS: Sclerosis is present at the right humeral neck consistent with healing fracture. A small fragment that is displaced medially at the fracture site versus developing osteophyte. No evidence of dislocation. IMPRESSION: Good alignment healing humeral neck fracture
--- NOTE | 2018-01-23 12:45 | XR_ITS ---
XR hip RT 2-3V w/pelvis HISTORY: Follow-up fracture ITS.REASON: fu closed right hip fx ORDERING PHYSICIAN: Hernandez Dela Cruz MD PATIENT AGE: 67 years COMPARISON: 12/25/2017 FINDINGS: Healing right femoral neck fracture is noted with increasing sclerosis at the fracture site of the femoral neck and intertrochanteric region. No evidence of dislocation. Surgical clips are present in the groin and there is deformity of the right iliac wing which may be due to prior bone harvesting site. IMPRESSION: Healing nondisplaced right femoral neck fracture
== END ==
PROVIDERS: PCP Family Medicine; Visit Provider Orthopaedic Surgery
DX: S72.301A Unspecified fracture of shaft of right femur, initial encounter for closed fracture (principal); S72.001A Fracture of unspecified part of neck of right femur, initial encounter for closed fracture; S42.91XA Fracture of right shoulder girdle, part unspecified, initial encounter for closed fracture
CPT/HCPCS: 73030; 73502; 73552

== ENCOUNTER → 2018-03-07 11:41 | Outpatient (CLI) | payer MEDICARE, MEDICAID, SELFPAY ==
--- NOTE | 2018-03-07 12:05 | XR_ITS ---
XR shoulder RT min 2V HISTORY: Follow-up fracture ITS.REASON: follow up ORDERING PHYSICIAN: Hernandez Dela Curz MD PATIENT AGE: 67 years Comparison: None FINDINGS: Healing right humeral neck fracture once again noted with good alignment. No evidence of dislocation. Osteoarthritic changes are present at the acromioclavicular joint. IMPRESSION: No change healing right humeral neck fracture
--- NOTE | 2018-03-07 12:05 | XR_ITS ---
XR hip RT 2-3V w/pelvis HISTORY: Follow-up fracture ITS.REASON: rt hip pain ORDERING PHYSICIAN: Hernandez Dela Cruz MD PATIENT AGE: 67 years COMPARISON: 01/23/2018 FINDINGS: Healing fracture once again noted involving the intertrochanteric region of the right femur in the right femoral neck with slight decreased prominence of the fracture line at the intertrochanteric region laterally.. No evidence of dislocation. Surgical clips are present in the right groin. Hypertrophic changes are present along the lateral aspect of the ileum on both sides. IMPRESSION: Good alignment right femoral neck and intertrochanteric fracture
--- NOTE | 2018-03-07 12:05 | XR_ITS ---
XR femur RT 2V CLINICAL INDICATION: Fracture follow-up ITS.REASON: follow up ORDERING PHYSICIAN: Hernandez Dela Cruz MD PATIENT AGE: 67 years Comparison: None FINDINGS: Please see hip report regarding discussion of the right femoral neck and intertrochanteric fracture. Comminuted displaced fracture of the distal shaft of the femur is once again noted. Reaction of the fracture fragments with lateral displacement of the distal fracture fragment x 2.5 cm as well as medial displacement of the distal fracture fragment x 1.6 cm. Fracture lines appear somewhat less distinct with some overlying callus formation. There is diffuse vascular calcification along with vascular stents. IMPRESSION: Good alignment involving a comminuted displaced/impacted distal femur fracture with evidence of healing
--- NOTE | 2018-03-07 12:06 | XR_ITS ---
XR foot wt bearing LT 3V HISTORY: Follow-up surgery/indication ITS.REASON: Follow-up ORDERING PHYSICIAN: Hernandez Dela Cruz MD PATIENT AGE: 67 years COMPARISON: 10/05/2017 FINDINGS: Status post transmetatarsal amputation of the first through fifth toes. The surgical clips have been removed. No bony erosive process apparent. Use osteopenia. There is some calcification along the plantar surface of the foot posteriorly. Vascular calcification also noted. IMPRESSION: No change status post transmetatarsal amputation without evidence of acute erosive change
== END ==
PROVIDERS: PCP Family Medicine; Referring Provider Podiatrist; Visit Provider Orthopaedic Surgery
DX: S72.301A Unspecified fracture of shaft of right femur, initial encounter for closed fracture (principal); S42.91XA Fracture of right shoulder girdle, part unspecified, initial encounter for closed fracture; Z98.890 Other specified postprocedural states
CPT/HCPCS: 73030; 73502; 73552; 73630

== ENCOUNTER 2018-05-14 15:11 | Inpatient (IN) ==
--- NOTE | 2018-05-14 15:58 | History & Physical Report ---
*Admission Date: 05/14/18 *Chief complaint: weakness *History of present illness: 67 year old female with history of PAD and DM presented to office with family with one month of weakness but 5 days of fever to 103, cough with green sputum, shortness of breath, and poor appetite. In office patient had normal blood pressure but pulse was 130, pulse ox was 75%. Patient was afebrile in the office. She appeared weak, disheveled, with shallow respirations. Lungs had bilateral rhonchi and decision was made to admit the patient for pneumonia. [facility] History I have reviewed the patient's past medical history: Yes Medical History: Reports:: Asthma, Atrial Fibrillation, Congestive Heart Failure, Chronic Obstructive Pulmonary Disease (COPD), Diabetes Mellitus Type 2, Gastroesophageal Reflux Disease(GERD), Hyperlipidemia, MRSA, Peripheral Artery Disease, Peripheral Vascular Disease Denies:: Cancer, Hypertension, Seizures Have you ever received a pneumonia vaccine?: Yes Have you received a flu vaccine this season?: No Other Medical History: Denies: Blood Transfusion Reaction Laterality Cases: Left: Lumpectomy, Right: Other Other Surgeries: Yes: Appendectomy, Cardiac Catheterization, Colonoscopy, C- section, EGD, Hysterectomy-Total, Other Amputation: Yes (right bka) Fractures: No - *Social History Smoking Status: Current every day smoker Tobacco Type: cigarettes # Packs/Day (cigarettes): 1 #Yrs smoked (if former smoker): 7 Alcohol Intake: never Alcohol Intake Frequency:: other Substance Use Type: denies use Occupational Status: retired, disabled Housing: house Household Members: children Family Hx:: Diabetes, Cancer, Coronary Artery Disease Review of Systems - Review of Systems Review of systems:: pertinent systems reviewed and negative unless documented below Meds Home Medications Medication Instructions Recorded Confirmed Type atorvastatin 80 mg tablet 80 mg PO DAILY 30 Days #30 05/24/17 03/07/18 History gabapentin 600 mg tablet 600 mg PO TID 05/24/17 03/07/18 History omeprazole 20 mg capsule,delayed 20 mg PO DAILY 30 Days #30 05/24/17 03/07/18 History release ropinirole 1 mg tablet 1 mg PO HS 30 Days #30 05/24/17 03/07/18 History Albuterol Sulfate [Albuterol HFA 1 puff INHALATION BID 07/28/17 03/07/18 History Inhaler] apixaban 5 mg tablet 5 mg PO BID 01/23/18 03/07/18 History clopidogrel 75 mg tablet 75 mg PO DAILY 01/23/18 03/07/18 History diltiazem ER 120 mg capsule,24 120 mg PO DAILY 01/23/18 03/07/18 History hr,extended release hydrocodone 5 mg-acetaminophen 325 1 tab PO Q6H 01/23/18 03/07/18 History mg tablet sitagliptin 50 mg tablet 50 mg PO DAILY 01/23/18 03/07/18 History insulin aspar prt-insulin aspart 1 sliding scale dose SQ UD 03/07/18 03/07/18 History 100 unit/mL (70-30) subcutaneous soln Allergies Allergy/AdvReac Type Severity Reaction Status Date / Time ibuprofen [IBUPROFEN] Allergy Severe I-HIVES Verified 03/07/18 12:58 aspirin [ASPIRIN] Allergy Unknown Verified 03/07/18 12:58 tramadol Allergy Unknown Verified 03/07/18 12:58 zolpidem [From AMBIEN] Allergy Unknown Verified 03/07/18 12:58 Exam - Constitutional moderate distress, cachectic, chronically ill appearing, disheveled - *Routine HEENT Exam Head: Present: atraumatic Eye: Present: PERRL ENT: Present: mucous membranes moist - *Routine Neck Exam Present: supple - *Routine Respiratory Exam Present: rhonchi (throughout) - *Routine Cardiovascular Exam Present: tachycardia - *Routine Abdominal Exam Present: soft. Absent: tenderness - *Routine Extremities Exam Present: amputation (right bka) - *Routine Skin Exam Present: dry (cool to touch) - *Routine Neurological Exam Present: alert, CN II-XII intact. Absent: sensory deficit, motor deficit Assessment and Plan (1) Pneumonia Current visit: No Status: Acute Qualifiers: Pneumonia type: due to unspecified organism Laterality: right Lung location: lower lobe of lung Qualified Code(s): J18.1 - Lobar pneumonia, unspecified organism Category: Medical Code(s): J18.9 - Pneumonia, unspecified organism (2) Peripheral vascular disease Current visit: No Status: Acute Category: Medical Code(s): I73.9 - Perip heral vascular disease, unspecified - Assessment and plan all Dx Assessment and Plan for all problems:: ADmit for IV antibiotics,Nebs, fluids. Await labs
[2018-05-14 17:32] LABS: Basophils % 0.1 % (0.1-2.0); Hematocrit 34.2 % (37.0-47.0); Lymphocytes # 1.1 K/mm3 (0.7-4.5); Lymphocytes % 8.6 % (10-50); Mean Corpuscular Hemoglobin 28.8 pg (27.0-31.2); Mean Corpuscular Volume 89.8 fl (81-99); Mean Platelet Volume 7.5 fl (7.4-10.4); Monocytes # 1.1 K/mm3 (0.1-1.0); Monocytes % 8.4 % (1.7-9.3); Neutrophils # 10.5 K/mm3 (1.8-7.8); Neutrophils % 82.9 % (37.0-80.0); Platelet Count 372 K/mm3 (142-424); Red Blood Count 3.81 M/mm3 (4.20-5.40); Red Cell Distribution Width 15.8 % (11.5-17.5); White Blood Count 12.7 K/mm3 (4.8-10.8)
[2018-05-14 17:41] LABS: Albumin Level 1.8 gm/dL (3.4-5.0); Albumin/Globulin Ratio 0.4 (1.1-1.8); Anion Gap 14.9 mEq/L (5-15); Bilirubin,Total 1.5 mg/dL (0.2-1.0); Calcium 8.2 mg/dL (8.5-10.1); Globulin 4.1 gm/dl (1.3-3.2); Potassium 3.9 mmoL/L (3.5-5.1); Total Protein,Serum 5.9 gm/dL (6.4-8.2)
[2018-05-14 19:23] LABS: ABG Base Excess -1.9 mmol/L (-2.4-2.3); ABG HCO3 23.5 mmhg (22.0-26.0); ABG Oxygen Saturation 91 % (90-100); ABG PCO2 41.7 mmhg (35.0-45.0); ABG PH 7.37 mmol/L (7.35-7.45); ABG PO2 65.6 mmhg (80-100); ABG TCO2 24.7 mmhg (23-27)
[2018-05-14 19:24] LABS: Allen's Test Y; Oxygen 4 %
--- NOTE | 2018-05-15 07:06 | Progress Note ---
Internal Medicine - PN: Subj *Date: 05/15/18 *Time: 07:03 Interval history: Nursing staff reports patient claims she had had loose stools at home prior to admission and she did have a few loose stools here in the hospital. Per protocol a diarrhea panel will be checked but that has not been obtained yet. Once patient was admitted and started on IV fluids and given supplemental oxygen she became more awake and alert. While she requested her gabapentin yesterday evening she actually fell asleep before she received it and so the medicine was not given. This morning the patient is feeling a little bit better. She continues to have a loose cough. She is sitting up in bed at the time of interview Exam Vital signs and Labs for Last 24 Hours: Temp Pulse Resp BP Pulse Ox 98.3 F 99 H 17 95/36 L 93 L 05/15/18 04:00 05/15/18 06:16 05/15/18 04:00 05/15/18 04:00 05/15/18 06:16 Laboratory Results - last 24 hr 05/14/18 17:06: POC Glucose 126 H 05/14/18 17:13: WBC 12.7 H, RBC 3.81 L, Hgb 11.0 L, Hct 34.2 L, MCV 89.8, MCH 28.8, MCHC 32.0, RDW 15.8, Plt Count 372, MPV 7.5, Neut % (Auto) 82.9 H, Lymph % (Auto) 8.6 L, [place] % (Auto) 8.4, Eos % (Auto) 0.0 L, Baso % (Auto) 0.1, Neut # (Auto) 10.5 H, Lymph # (Auto) 1.1, [place] # (Auto) 1.1 H, Eos # (Auto) 0.0, Baso # (Auto) 0.0 05/14/18 17:13: Sodium 130 L, Potassium 3.9, Chloride 93 L, Carbon Dioxide 26, Anion Gap 14.9, BUN 17, Creatinine 0.77, Estimated Creat Clear 40, Estimated GFR 74, Est GFR ( Amer) 90, Glucose 124 H, Calcium 8.2 L, Total Bilirubin 1.5 H, AST 12 L, ALT 5 L, Alkaline Phosphatase 92, Total Protein 5.9 L, Albumin 1.8 L, Globulin 4.1 H, Albumin/Globulin Ratio 0.4 L 05/14/18 17:13: Influenza Type A Ag Negative, Influenza Type B Ag Negative 05/14/18 17:13: Mycoplasma pneumon IgM Non-reactive 05/14/18 17:13: B-Natriuretic Peptide 450 H 05/14/18 17:13: Lactate 1.7 05/14/18 19:22: Specimen Source R/r, O2 % 4, ABG pH 7.37, ABG pCO2 41.7, ABG pO2 65.6 L, ABG HCO3 23.5, ABG Total CO2 24.7, ABG O2 Saturation 91, ABG Base Excess -1.9, Mike Test Y 05/14/18 20:34: POC Glucose 115 H 05/15/18 05:47: POC Glucose 82 I & O for Last 24 hours: Intake & Output 05/12/18 05/13/18 05/14/18 05/15/18 11:59 11:59 11:59 11:59 Intake Total 3352 / 3352 Balance 3352 / 3352 Weight 103 lb 5 oz Microbiology Reports for the Last 24 Hours: Microbiology 05/14/18 17:13 Sputum - Expectorated Sputum Gram Stain - Final Narrative: Patient looks more alert than yesterday although she is still disheveled. Oropharynx is moist. Neck is without lymphadenopathy. Lungs have bilateral rhonchi, louder on the right than on the left. Heart has a regular rate and rhythm. Left foot is missing all of its toes and there is no sign of any ulcer Assessment and Plan (1) Pneumonia Current visit: No Status: Acute Qualifiers: Pneumonia type: due to unspecified organism Laterality: right Lung location: lower lobe of lung Qualified Code(s): J18.1 - Lobar pneumonia, unspecified organism Category: Medical Code(s): J18.9 - Pneumonia, unspecified organism (2) Peripheral vascular disease Current visit: No Status: Acute Category: Medical Code(s): I73.9 - Peripheral vascular disease, unspecified (3) COPD (chronic obstructive pulmonary disease) Current visit: Yes Status: Acute Category: Medical Code(s): J44.9 - Chronic obstructive pulmonary disease, unspecified (4) Diabetes Current visit: No Status: Chronic Qualifiers: Diabetes mellitus type: type 2 Diabetes mellitus 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 Continue Rocephin and azithromycin as well as duo nebs and add incentive spirometer 2. Change fluids to D5 half-normal saline due to borderline low blood sugars and poor appetite 3. Pressure ulcer precautions
[2018-05-15 07:23] LABS: Basophils % 0.2 % (0.1-2.0); Eosinophils % 0.1 % (0.1-12.0); Hematocrit 32.8 % (37.0-47.0); Hemoglobin 10.3 g/dL (12.2-16.2); Lymphocytes # 1.8 K/mm3 (0.7-4.5); Lymphocytes % 20.3 % (10-50); Mean Corpuscular HGB Conc 31.4 g/dL (31.8-35.4); Mean Corpuscular Hemoglobin 28.6 pg (27.0-31.2); Mean Corpuscular Volume 91.2 fl (81-99); Mean Platelet Volume 7.6 fl (7.4-10.4); Monocytes # 0.6 K/mm3 (0.1-1.0); Monocytes % 6.9 % (1.7-9.3); Neutrophils # 6.5 K/mm3 (1.8-7.8); Neutrophils % 72.4 % (37.0-80.0); Platelet Count 335 K/mm3 (142-424)
--- NOTE | 2018-05-15 07:35 | Pharmacy Consult Notes ---
[facility] Pharmacy VTE Monitoring - Patient Demographics Admission date: 05/14/18 Report Date: 05/15/18 Time: 07:35 Allergies/Adverse Reactions: Patient Allergies ibuprofen [IBUPROFEN] Allergy (Severe, Verified 03/07/18 12:58) I-HIVES aspirin [ASPIRIN] Allergy (Unknown, Verified 03/07/18 12:58) tramadol Allergy (Unknown, Verified 03/07/18 12:58) zolpidem [From AMBIEN] Allergy (Unknown, Verified 03/07/18 12:58) Height: 1.57 m Weight: 46.862 kg Patient Problems: Current Active Problems COPD (chronic obstructive pulmonary disease) (Acute) - VTE Risk Labs: VTE Related Lab Results Hgb 10.3 g/dL (12.2-16.2) L 05/15/18 07:00 Hct 32.8 % (37.0-47.0) L 05/15/18 07:00 Plt Count 335 K/mm3 (142-424) 05/15/18 07:00 BUN 17 mg/dL (7-18) 05/14/18 17:13 Creatinine 0.77 mg/dL (0.55-1.02) 05/14/18 17:13 Estimated Creat Clear 40 mL/min (50-200) 05/14/18 17:13 Was VTE Risk Assessment Performed: Yes VTE Score: 5 VTE Risk Level: Low Risk - Prophylaxis VTE Prophylaxis Ordered?: Yes Types of VTE Prophylaxis: TEDS Knee High, Pharmacological Location of Applied Device: Bilateral Lower Extremeties Pharmacologic Type: Other (ELIQUIS) - VTE Diagnosis Confirmed Treatment or plan recommended: Continue Current Treatment
--- NOTE | 2018-05-16 07:09 | Progress Note ---
Internal Medicine - PN: Subj *Date: 05/16/18 *Time: 07:07 Interval history: Patient has no complaints this morning and she would like to be discharged. She continues to have some cough. She feels like her breathing is at baseline. Cough at present is nonproductive. Nursing staff reports patient continues to have diarrhea. Diarrhea panel was negative Exam Vital signs and Labs for Last 24 Hours: Temp Pulse Resp BP Pulse Ox 98.9 F 91 H 17 132/56 L 95 05/16/18 04:00 05/16/18 04:00 05/16/18 04:00 05/16/18 04:00 05/16/18 06:31 Laboratory Results - last 24 hr 05/15/18 07:00: WBC 9.0 D, RBC 3.60 L, Hgb 10.3 L, Hct 32.8 L, MCV 91.2, MCH 28.6, MCHC 31.4 L, RDW 16.0, Plt Count 335, MPV 7.6, Neut % (Auto) 72.4, Lymph % (Auto) 20.3, [place] % (Auto) 6.9, Eos % (Auto) 0.1, Baso % (Auto) 0.2, Neut # (Auto) 6.5, Lymph # (Auto) 1.8, [place] # (Auto) 0.6, Eos # (Auto) 0.0, Baso # (Auto) 0.0 05/15/18 08:29: Stl Aeromonas (PCR) Not detected, Stl C. cayetanensis PCR Not detected, Stool Rotavirus (PCR) Not detected, Stl Adenov F 40/41 PCR Not detected, Stool Astrovirus (PCR) Not detected, Stool Campylobacter PCR Not detected, Stl C.difficile Tox PCR Not detected, Stool Cryptosporidium PCR Not detected, Stl E.coli Shiga Tox PCR Not detected, Stool E coli O157 PCR Not detected, Stl Enterotoxigenic E PCR Not detected, Stool EPEC (PCR) Not detected, Stool EAEC (PCR) Not detected, Stl E. histolytica PCR Not detected, Stool Giardia Lamblia PCR Not detected, Stool Salmonella PCR Not detected, Stool Sapovirus (PCR) Not detected, Stl P. shigelloides PCR Not detected, Stl Shigella/EIEC PCR Not detected, St Y.enterocolitica PCR Not detected, Stool Vibrio (PCR) Not detected, Stl Vibrio cholerae PCR Not detected, Stl Norovirus GI/GII PCR Not detected 05/15/18 10:53: POC Glucose 162 H 05/15/18 16:15: POC Glucose 193 H 05/15/18 20:42: POC Glucose 167 H 05/16/18 06:15: POC Glucose 122 H I & O for Last 24 hours: Intake & Output 05/13/18 05/14/18 05/15/18 05/16/18 11:59 11:59 11:59 11:59 Intake Total 3592 / 3592 600 / 600 Balance 3592 / 3592 600 / 600 Weight 103 lb 5 oz 104 lb 6 oz Microbiology Reports for the Last 24 Hours: Microbiology 05/14/18 17:13 Sputum - Expectorated Sputum Gram Stain - Final 05/14/18 17:13 Sputum - Expectorated Sputum Sputum Culture - Preliminary Narrative: Patient looks more alert. Lungs continue to have rhonchi in the bases bilaterally with right greater than left. Heart has a regular rate and rhythm Assessment and Plan (1) Pneumonia Current visit: No Status: Acute Qualifiers: Pneumonia type: due to unspecified organism Laterality: right Lung location: lower lobe of lung Qualified Code(s): J18.1 - Lobar pneumonia, unspecified organism Category: Medical Code(s): J18.9 - Pneumonia, unspecified organism Continue Rocephin and azithromycin. Await sputum culture. Encourage incentive spirometry. Continue attempts to wean oxygen (2) Peripheral vascular disease Current visit: No Status: Acute Category: Medical Code(s): I73.9 - Peripheral vascular disease, unspecified (3) COPD (chronic obstructive pulmonary disease) Current visit: Yes Status: Acute Category: Medical Code(s): J44.9 - Chronic obstructive pulmonary disease, unspecified (4) Diabetes Current visit: No Status: Chronic Qualifiers: Diabetes mellitus type: type 2 Diabetes mellitus care home insulin use: with care home use Diabetes mellitus complication status: with circulatory complication Diabetes mellitus complication detail: with other circulatory complications Qualified Code(s): E11.59 - Type 2 diabetes mellitus with other circulatory complications; Z79.4 - care home (current) use of insulin Category: Medical Code(s): E11.9 - Type 2 diabetes mellitus without complications (5) Stage II decubitus ulcer Current visit: Yes Status: Acute Category: Medical Code(s): L89.92 - Pressure ulcer of unspecified site, stage 2
[2018-05-16 07:44] LABS: Basophils % 0.2 % (0.1-2.0); Eosinophils % 0.6 % (0.1-12.0); Hematocrit 29.1 % (37.0-47.0); Hemoglobin 9.5 g/dL (12.2-16.2); Lymphocytes # 1.1 K/mm3 (0.7-4.5); Lymphocytes % 19.7 % (10-50); Mean Corpuscular HGB Conc 32.6 g/dL (31.8-35.4); Mean Corpuscular Hemoglobin 29.6 pg (27.0-31.2); Mean Platelet Volume 7.7 fl (7.4-10.4); Monocytes # 0.6 K/mm3 (0.1-1.0); Monocytes % 10.8 % (1.7-9.3); Neutrophils # 3.9 K/mm3 (1.8-7.8); Neutrophils % 68.8 % (37.0-80.0); Platelet Count 321 K/mm3 (142-424); Red Cell Distribution Width 15.9 % (11.5-17.5); White Blood Count 5.7 K/mm3 (4.8-10.8)
[2018-05-17 06:38] LABS: Basophils % 0.3 % (0.1-2.0); Eosinophils # 0.1 K/mm3 (0.0-0.4); Eosinophils % 1.2 % (0.1-12.0); Hematocrit 26.9 % (37.0-47.0); Hemoglobin 8.6 g/dL (12.2-16.2); Lymphocytes # 1.1 K/mm3 (0.7-4.5); Mean Corpuscular Hemoglobin 28.9 pg (27.0-31.2); Mean Corpuscular Volume 90.5 fl (81-99); Mean Platelet Volume 7.4 fl (7.4-10.4); Monocytes # 0.8 K/mm3 (0.1-1.0); Monocytes % 10.9 % (1.7-9.3); Neutrophils # 5.1 K/mm3 (1.8-7.8); Neutrophils % 72.6 % (37.0-80.0); Platelet Count 315 K/mm3 (142-424); Red Blood Count 2.98 M/mm3 (4.20-5.40)
--- NOTE | 2018-05-17 07:07 | Progress Note ---
Internal Medicine - PN: Subj *Date: 05/17/18 *Time: 07:04 Interval history: Patient states "I feel great" and she would like to be discharged. Patient required pain medicine over night one time. Otherwise she has been doing well. She is rarely using incentive spirometer according to staff. Patient continues to cough and over the last 24 hours her cough is been more productive of yellow sputum. Her blood cultures have returned negative. Sputum culture is still in process. Exam Vital signs and Labs for Last 24 Hours: Temp Pulse Resp BP Pulse Ox 98.7 F 84 16 110/49 L 96 05/17/18 04:00 05/17/18 06:39 05/17/18 04:00 05/17/18 04:00 05/17/18 06:39 Laboratory Results - last 24 hr 05/16/18 07:05: WBC 5.7 D, RBC 3.20 L, Hgb 9.5 L, Hct 29.1 L, MCV 91.0, MCH 29.6, MCHC 32.6, RDW 15.9, Plt Count 321, MPV 7.7, Neut % (Auto) 68.8, Lymph % (Auto) 19.7, [place] % (Auto) 10.8 H, Eos % (Auto) 0.6, Baso % (Auto) 0.2, Neut # (Auto) 3.9, Lymph # (Auto) 1.1, [place] # (Auto) 0.6, Eos # (Auto) 0.0, Baso # (Auto) 0.0 05/16/18 11:19: POC Glucose 170 H 05/16/18 17:08: POC Glucose 113 H 05/16/18 20:58: POC Glucose 155 H 05/17/18 06:00: WBC 7.0, RBC 2.98 L, Hgb 8.6 L, Hct 26.9 L, MCV 90.5, MCH 28.9, MCHC 32.0, RDW 16.0, Plt Count 315, MPV 7.4, Neut % (Auto) 72.6, Lymph % (Auto) 15.0, [place] % (Auto) 10.9 H, Eos % (Auto) 1.2, Baso % (Auto) 0.3, Neut # (Auto) 5.1, Lymph # (Auto) 1.1, [place] # (Auto) 0.8, Eos # (Auto) 0.1, Baso # (Auto) 0.0 05/17/18 06:39: POC Glucose 109 I & O for Last 24 hours: Intake & Output 05/14/18 05/15/18 05/16/18 05/17/18 11:59 11:59 11:59 11:59 Intake Total 3592 / 3592 4113 / 4113 1610 / 1610 Balance 3592 / 3592 4113 / 4113 1610 / 1610 Weight 103 lb 5 oz 104 lb 6 oz Microbiology Reports for the Last 24 Hours: Microbiology 05/14/18 17:13 Blood Blood Culture - Preliminary NO GROWTH AFTER 48 HOURS 05/14/18 17:13 Blood Blood Culture - Preliminary NO GROWTH AFTER 48 HOURS 05/14/18 17:13 Sputum - Expectorated Sputum Gram Stain - Final 05/14/18 17:13 Sputum - Expectorated Sputum Sputum Culture - Preliminary Narrative: Patient is awake and alert and she looks well. She has faint congested breath sound that can be heard just standing at her bedside. Lung exam reveals bilateral rhonchi although there are significantly more audible on the right. With deep breathing and coughing rhonchi do clear. Heart has a regular rate and rhythm. Assessment and Plan (1) Pneumonia Current visit: No Status: Acute Qualifiers: Pneumonia type: due to unspecified organism Laterality: right Lung location: lower lobe of lung Qualified Code(s): J18.1 - Lobar pneumonia, unspecified organism Category: Medical Code(s): J18.9 - Pneumonia, unspecified organism (2) Peripheral vascular disease Current visit: No Status: Acute Category: Medical Code(s): I73.9 - Peripheral vascular disease, unspecified (3) COPD (chronic obstructive pulmonary disease) Current visit: Yes Status: Acute Category: Medical Code(s): J44.9 - Chronic obstructive pulmonary disease, unspecified (4) Diabetes Current visit: No Status: Chronic Qualifiers: Diabetes mellitus type: type 2 Diabetes mellitus halfway insulin use: with halfway use Diabetes mellitus complication status: with circulatory complication Diabetes mellitus complication detail: with other circulatory complications Qualified Code(s): E11.59 - Type 2 diabetes mellitus with other circulatory complications; Z79.4 - senior living (current) use of insulin Category: Medical Code(s): E11.9 - Type 2 diabetes mellitus without complications (5) Stage II decubitus ulcer Current visit: Yes Status: Acute Category: Medical Code(s): L89.92 - Pressure ulcer of unspecified site, stage 2 (6) Anemia Current visit: No Status: Chronic Qualifiers: Anemia type: other cause Other causes of anemia: other cause, not classified Qualified Code(s): D64.89 - Other specified anemias Category: Medical Code(s): D64.9 - Anemia, unspecified - Assessment and plan all Dx Assessment and Plan for all problems:: 1. Continue Rocephin and azithromycin. Patient is currently requiring 3 L/min of oxygen via nasal cannula and if this can be weaned to 2 L/min consideration will be given to discharging the patient as overall she is doing well and feeling well. 2. Restart low-dose of beta-esther for patient's underlying history of paroxysmal atrial fibrillation 3. Continue to encourage patient to use incentive spirometer.
--- NOTE | 2018-05-17 09:14 | Progress Note ---
Internal Medicine - PN: Subj *Date: 05/17/18 *Time: 09:14 Exam Vital signs and Labs for Last 24 Hours: Temp Pulse Resp BP Pulse Ox 98.6 F 85 16 115/50 L 99 05/17/18 08:00 05/17/18 08:00 05/17/18 08:00 05/17/18 08:00 05/17/18 08:00 Laboratory Results - last 24 hr 05/16/18 11:19: POC Glucose 170 H 05/16/18 17:08: POC Glucose 113 H 05/16/18 20:58: POC Glucose 155 H 05/17/18 06:00: WBC 7.0, RBC 2.98 L, Hgb 8.6 L, Hct 26.9 L, MCV 90.5, MCH 28.9, MCHC 32.0, RDW 16.0, Plt Count 315, MPV 7.4, Neut % (Auto) 72.6, Lymph % (Auto) 15.0, [place] % (Auto) 10.9 H, Eos % (Auto) 1.2, Baso % (Auto) 0.3, Neut # (Auto) 5.1, Lymph # (Auto) 1.1, [place] # (Auto) 0.8, Eos # (Auto) 0.1, Baso # (Auto) 0.0 05/17/18 06:39: POC Glucose 109 I & O for Last 24 hours: Intake & Output 05/14/18 05/15/18 05/16/18 05/17/18 23:59 23:59 23:59 23:59 Intake Total 2420 / 2420 1772 / 1772 3993 / 3993 1130 / 1130 Balance 2420 / 2420 1772 / 1772 3993 / 3993 1130 / 1130 Weight 47.174 kg 46.862 kg 47.344 kg Microbiology Reports for the Last 24 Hours: Microbiology 05/14/18 17:13 Sputum - Expectorated Sputum Gram Stain - Final 05/14/18 17:13 Sputum - Expectorated Sputum Sputum Culture - Final Haemophilus influenzae 05/14/18 17:13 Blood Blood Culture - Preliminary NO GROWTH AFTER 48 HOURS 05/14/18 17:13 Blood Blood Culture - Preliminary NO GROWTH AFTER 48 HOURS Assessment and Plan (1) Pneumonia Current visit: No Status: Acute Qualifiers: Pneumonia type: due to unspecified organism Laterality: right Lung location: lower lobe of lung Qualified Code(s): J18.1 - Lobar pneumonia, unspecified organism Category: Medical Code(s): J18.9 - Pneumonia, unspecified organism (2) Peripheral vascular disease Current visit: No Status: Acute Category: Medical Code(s): I73.9 - Peripheral vascular disease, unspecified (3) COPD (chronic obstructive pulmonary disease) Current visit: Yes Status: Acute Category: Medical Code(s): J44.9 - Chronic obstructive pulmonary disease, unspecified (4) Diabetes Current visit: No Status: Chronic Qualifiers: Diabetes mellitus type: type 2 Diabetes mellitus snf insulin use: with snf use Diabetes mellitus complication status: with circulatory complication Diabetes mellitus complication detail: with other circulatory complications Qualified Code(s): E11.59 - Type 2 diabetes mellitus with other circulatory complications; Z79.4 - [facility] (current) use of insulin Category: Medical Code(s): E11.9 - Type 2 diabetes mellitus without complications (5) Stage II decubitus ulcer Current visit: Yes Status: Acute Category: Medical Code(s): L89.92 - Pressure ulcer of unspecified site, stage 2 (6) Anemia Current visit: No Status: Chronic Qualifiers: Anemia type: other cause Other causes of anemia: other cause, not classified Qualified Code(s): D64.89 - Other specified anemias Category: Medical Code(s): D64.9 - Anemia, unspecified The patient's infection will respond to the chosen ABx?: Yes Is the patient receiving the right drug, dose, and route?: Yes Could a more targeted ABx be ordered?: No (H.FLU SENSITIVE TO ROCEPHIN AND ZITHROMAX)
--- NOTE | 2018-05-17 16:49 | Discharge Summary ---
General - General Admission date:: 05/14/18 Discharge date: 05/17/18 HPI HPI: 67 year old female with history of PAD and DM presented to office with family with one month of weakness but 5 days of fever to 103, cough with green sputum, shortness of breath, and poor appetite. In office patient had normal blood pressure but pulse was 130, pulse ox was 75%. Patient was afebrile in the office. She appeared weak, disheveled, with shallow respirations. Lungs had bilateral rhonchi and decision was made to admit the patient for pneumonia. Hospital Course Hospital Course: Patient was admitted and chest x-ray confirmed bilateral pneumonia. Patient was placed on Rocephin and azithromycin to treat her pneumonia which was considered to be community-acquired. Patient had initial O2 sat on arrival to the hospital to 89% and had oxygen applied via nasal cannula at 4 L/min. This brought O2 sats to the mid to high 90s. Sputum and blood cultures were obtained and sputum ultimately grew Haemophilus influenza that was sensitive to multiple antibiotics. Patient was initially hypotensive on presentation and was given multiple liter fluid boluses which did raise her blood pressure although the remainder of hospitalization patient's systolics were generally 100-110. Cardizem was held during hospitalization and at discharge patient's Cardizem was discontinued permanently in favor of bisoprolol. Her underlying atrial fibrillation was not an active issue during this hospitalization. After 48 hours of treatment patient showed significant signs of improvement with increased alertness and appetite. By May 17 patient was "feeling great". Lung exam continued to have some rhonchi on the right. Room air sats were now 93-95%. Patient was discharged home. She will finish a course of antibiotics. She will follow-up in the office in a week. Home health referral has been made for vital signs monitoring and assistance with a decubitus ulcer. Patient does have a stage II decubitus ulcer of the right buttock. Objective Vital signs: Temp Pulse Resp BP Pulse Ox 98.6 F 87 18 114/50 L 94 L 05/17/18 12:00 05/17/18 12:00 05/17/18 12:00 05/17/18 12:05/17/18 14:26 Results Labs on day of discharge: Labs from last 24 hours 02/15/19 02/15/19 02/15/19 16:25 11:33 06:39 WBC RBC Hgb Hct MCV MCH MCHC RDW Plt Count MPV Neut % (Auto) Lymph % (Auto) [place] % (Auto) Eos % (Auto) Baso % (Auto) Neut # (Auto) Lymph # (Auto) [place] # (Auto) Eos # (Auto) Baso # (Auto) POC Glucose 142 H 124 H 109 05/17/18 05/16/18 05/16/18 06:00 20:58 17:08 WBC 7.0 RBC 2.98 L Hgb 8.6 L Hct 26.9 L MCV 90.5 MCH 28.9 MCHC 32.0 RDW 16.0 Plt Count 315 MPV 7.4 Neut % (Auto) 72.6 Lymph % (Auto) 15.0 [place] % (Auto) 10.9 H Eos % (Auto) 1.2 Baso % (Auto) 0.3 Neut # (Auto) 5.1 Lymph # (Auto) 1.1 [place] # (Auto) 0.8 Eos # (Auto) 0.1 Baso # (Auto) 0.0 POC Glucose 155 H 113 H Preliminary micro results at discharge 05/14/18 17:13 Blood Culture - Preliminary Blood NO GROWTH AFTER 48 HOURS 05/14/18 17:13 Blood Culture - Preliminary Blood NO GROWTH AFTER 48 HOURS DS: Diagnosis - Discharge Diagnosis (1) Pneumonia Status: Acute (2) Peripheral vascular disease Status: Acute (3) COPD (chronic obstructive pulmonary disease) Status: Acute (4) Diabetes Status: Chronic (5) Anemia Status: Chronic (6) Decubitus ulcer of right buttock, stage 2 Status: Acute Discharge Plan - Patient Discharge Instructions ACTIVITY: Continue current activity DIET: continue same diet Patient Instructions: DI for Pneumonia -- Adult, DI for Diabetes Type 2 - Follow up Plan Follow up with: Mario Campos MD [Primary Care Provider] - 1 week Disposition: Home, Self-Nursing Home Medications: Home Medications Medication Instructions Recorded Confirmed Type atorvastatin 80 mg tablet 80 mg PO DAILY 30 Days #30 05/24/17 05/14/18 History gabapentin 600 mg tablet 600 mg PO TID 05/24/17 05/14/18 History omeprazole 20 mg capsule,delayed 20 mg PO DAILY 30 Days #30 05/24/17 05/14/18 History release ropinirole 1 mg tablet 1 mg PO HS 30 Days #30 05/24/17 05/14/18 History Albuterol Sulfate [Albuterol HFA 1 puff INHALATION BID 07/28/17 05/14/18 History Inhaler] apixaban 5 mg tablet 5 mg PO BID 01/23/18 05/14/18 History clopidogrel 75 mg tablet 75 mg PO DAILY 01/23/18 05/14/18 History diltiazem ER 120 mg capsule,24 120 mg PO DAILY 01/23/18 05/14/18 History hr,extended release hydrocodone 5 mg-acetaminophen 325 1 tab PO Q6H 01/23/18 05/14/18 History mg tablet sitagliptin 50 mg tablet 50 mg PO DAILY 01/23/18 05/14/18 History Azithromycin [Zithromax 250mg 250 mg PO DAILY #4 tablet 05/17/18 Rx tab] Bisoprolol Fumarate [Zebeta 5mg 2.5 mg PO DAILY #30 tablet 05/17/18 Rx tablet] Loperamide HCl [Imodium 2 mg 2 mg PO NEEDED PRN #60 capsule 05/17/18 Rx capsule] Prescriptions/Medication Reconciliation: New Bisoprolol Fumarate [Zebeta 5mg tablet] 2.5 mg PO DAILY #30 tablet Loperamide HCl [Imodium 2 mg capsule] 2 mg PO NEEDED PRN #60 capsule PRN Reason: Diarrhea Azithromycin [Zithromax 250mg tab] 250 mg PO DAILY #4 tablet Continue omeprazole 20 mg capsule,delayed release 20 mg PO DAILY 30 Days #30 atorvastatin 80 mg tablet 80 mg PO DAILY 30 Days #30 gabapentin 600 mg tablet 600 mg PO TID apixaban 5 mg tablet 5 mg PO BID clopidogrel 75 mg tablet 75 mg PO DAILY hydrocodone 5 mg-acetaminophen 325 mg tablet 1 tab PO Q6H ropinirole 1 mg tablet 1 mg PO HS 30 Days #30 sitagliptin 50 mg tablet 50 mg PO DAILY Albuterol Sulfate [Albuterol HFA Inhaler] 1 puff INHALATION BID Discontinued diltiazem ER 120 mg capsule,24 hr,extended release 120 mg PO DAILY
== END 2018-05-17 18:09 | disposition home health service (06) | DRG 194 ==
LOC: 2ND → OBSVTOIN 15:21
PROVIDERS: ADMIT Family Medicine; ATTEND Family Medicine
CPT/HCPCS: 36415; 71010; 71045; 80053; 82803; 82962; 83605; 83880; 85025; 86738; 87040; 87070; 87077; 87184; 87205; 87275; 87276; 87506; 93005; 94640; 94760; 94761; J0456